=== PATIENT | female | born 1935 | race Hispanic/Latino ===

== ENCOUNTER 2016-06-20 20:38 | Inpatient (IN) | payer MEDICARE, BC ==
[2016-06-20] MEDS ORDERED: Sodium Chloride 0.9% 1,000 ML IV STA (21:18)
--- NOTE | 2016-06-20 21:24 | ED PDOC ---
Arrival/HPI - General Chief Complaint: Abdominal Pain Time Seen by Provider: 06/20/16 21:01 Historian: Patient - History of Present Illness Narrative History of Present Illness (Text): 06/20/16 21:04 A 81 year old female, whose past medical history includes diverticulitis, hypertension, peripheral edema, asthma and COPD, presents to the emergency department complaining of lower abdominal pain today. Patient reports pain is similar to previous pain. Patient also notes she has chronic shortness of breath , baseline and not worse than usual. Patient denies any other complaints at this time. Time/Duration: 1 week Symptom Onset: Sudden Symptom Course: Unchanged Activities at Onset: Rest Modifying Factors (Text): none Context: Home Past Medical History - Provider Review Nursing Documentation Reviewed: Yes - Infectious Disease Hx of Infectious Diseases: None - Tetanus Immunization Tetanus Immunization: Unknown - Cardiac Hx Hypertension: Yes Hx Peripheral Edema: Yes - Pulmonary Hx Asthma: Yes Hx Chronic Obstructive Pulmonary Disease (COPD): Yes Hx Pneumonia: Yes - Neurological Hx Neurological Disorder: No - HEENT Hx HEENT Disorder: No - Renal Hx Renal Disorder: No - Endocrine/Metabolic Hx Hypothyroidism: Yes - Hematological/Oncological Hx Blood Disorders: No - Integumentary Hx Dermatological Disorder: No - Musculoskeletal/Rheumatological Hx Musculoskeletal Disorders: No Hx Falls: No - Gastrointestinal Hx Gastrointestinal Disorders: Yes Hx Constipation: Yes Hx Gastroesophageal Reflux: Yes - Genitourinary/Gynecological Hx Genitourinary Disorders: No Hx Reproductive Disorders: No - Psychiatric Hx Psychophysiologic Disorder: Yes Hx Anxiety: Yes Hx Substance Use: No - Surgical History Hx Orthopedic Surgery: Yes (bilateral knee replacement) Other/Comment: throat polyps removed - Anesthesia Hx Anesthesia: Yes - Suicidal Assessment Feels Threatened In Home Enviroment: No Family/Social History - Physician Review Nursing Documentation Reviewed: Yes Family/Social History: No Known Family HX Smoking Status: Former Smoker Hx Alcohol Use: No Hx Substance Use: No Allergies/Home Meds Allergies/Adverse Reactions: Allergies latex Allergy (Verified 06/20/16 20:44) ANAPHYLAXIS moxifloxacin HCl [From Avelox] Allergy (Verified 06/20/16 20:44) RASH oxycodone HCl [From Percocet] Allergy (Verified 06/20/16 20:44) RASH Home Medications: Home Meds Medication Instructions Recorded Confirmed ALPRAZolam [Xanax] 0.25 mg PO DAILY 02/24/16 06/20/16 Aspirin [Ecotrin] 81 mg PO DAILY 02/24/16 06/20/16 Fluticasone/Salmeterol 250/50 1 dsk IH DAILY 02/24/16 06/20/16 [Advair Diskus] Levothyroxine [Synthroid] 125 mcg PO DAILY 02/24/16 06/20/16 Montelukast [Singulair] 10 mg PO DAILY 02/24/16 06/20/16 Tiotropium [Spiriva] 18 mcg IH DAILY 02/24/16 06/20/16 Triamterene/Hydrochlorothiazid 1 each PO DAILY 02/24/16 06/20/16 [Triamterene-Hctz 37.5-25 mg Cp] amLODIPine [Norvasc] 10 mg PO DAILY 02/24/16 06/20/16 Review of Systems - Physician Review All systems were reviewed & negative as marked: Yes Physical Exam - Physical Exam Narrative Physical Exam (Text): - Review of Systems Constitutional: Normal. absent: Fatigue, Weight Change, Fevers Eyes: Normal ENT: Normal Respiratory: Present: chronic SOB absent: Cough, Sputum Cardiovascular: Normal absent: Chest pain, Palpitations, Syncope Gastrointestinal: Present: lower abdominal pain absent: Diarrhea, Nausea, Vomiting Genitourinary: Normal. absent: Dysuria, Frequency, Hematuria Musculoskeletal: Normal. absent: Arthralgias, Back Pain, Neck Pain Skin: Normal Neurological: Normal absent: Focal Weakness Endocrine: Normal Hemo/Lymphatic: Normal Psychiatric: Normal - Physical exam Patient appears age appropriate, speaking full sentences without difficulty - Systems Exam Head: Present: Atraumatic, Normocephalic Pupils: Present: PERRL Extraocular Muscles: Present: EOMI Conjunctiva: Present: Normal Mouth: Present: Moist Mucous Membranes Neck: Present: Normal Range of Motion. No: MIDLINE TENDERNESS, Paraspinal Tenderness Respiratory/Chest: Present: Clear to Auscultation, Good Air Exchange. No: Respiratory Distress, Accessory Muscle Use, Tachypneic Cardiovascular: Present: Regular Rate and Rhythm, Normal S1, S2, Peripheral Pulses Present. No: Murmurs Abdomen: Present: lower abdomen tenderness to palpation LLQ, Normal Bowel Sounds , No: Peritoneal Signs, Rebound, Guarding, Distention Back: Present: Normal Inspection. No: Midline Tenderness, Paraspinal Tenderness Upper Extremity: Present: Normal Inspection. No: Cyanosis, Edema Lower Extremity: Present: Normal Inspection. No: Edema Neurological: Present: GCS=15, Speech Normal, cranial nerves II through XII fully intact with no cerebellar abnormality, neuro-sensory fully intact. No focal neurological deficits. Skin: Present: Warm, Dry, Normal Color. No: Rashes Lymphatic: Present: OX3, NI, NC Psychiatric: Present: Alert, Oriented x 3, Normal Insight, Normal Concentration . Vital Signs Reviewed: Yes Vital Signs Temp Pulse Resp BP Pulse Ox 06/20/16 23:01 98 H 141/69 94 L 06/20/16 20:54 97.9 F 93 H 21 141/82 94 L Temperature: Afebrile Blood Pressure: Normal Pulse: Regular Respiratory Rate: Normal Appearance: Positive for: Well-Appearing, Non-Toxic, Comfortable Pain Distress: None Mental Status: Positive for: Alert and Oriented X 3 Medical Decision Making ED Course and Treatment: 06/20/16 21:05 Impression: A 81 year old female with lower abdominal pain. On physical exam, patient had lower abdomen tenderness to palpation LLQ. Past visit: Patient last reported to emergency department on 02/24/16 for evaluation of chest tightness and shortness of breath. Patient received nebulizer treatment Solumedrol and was discharged home. Plan: -- EKG -- chest xray -- CT abd/pelvis -- Labs -- IV fluids, Toradol -- Urinalysis -- Reassess and disposition Progress Notes: EKG: Ordered, reviewed, and independently interpreted the EKG. Rate : 85 BPM Rhythm : NSR Interpretation : No ST-segment elevations, normal intervals. Interpreted by me. Comparison : No previous EKG for comparison. Chest xray interpreted by ED physician shows no pneumothorax, no cardiomegaly, no infiltrates CT Abdomen and Pelvis With Intravenous Contrast: IMPRESSION: Descending/sigmoid colon demonstrates bowel wall thickening/surrounding inflammatory stranding in the region of colonic diverticula, appearance most consistent with acute diverticulitis versus colitis. Please see additional details/findings as above. Some of the above findings may warrant followup evaluation. Dictated and Authenticated by: Dior Lance MD 06/20/2016 11:38 PM Eastern Time ([place] & [place]) 06/21/16 00:12 Ordered antibiotics for patient's diverticulitis Primary physician called, awaiting callback. 06/21/16 01:16 aleena Ramey, accepted admission to his service pt aware of and agrees with plan - Lab Interpretations Lab Results: 06/20/16 21:53 06/20/16 21:53 Lab Results 06/20/16 21:53: Sodium 139, Chloride 97 L, Potassium 3.2 L, Carbon Dioxide 31, Anion Gap 14, BUN 21, Creatinine 0.6, Est GFR ( Amer) > 60, Est GFR (Non- Af Amer) > 60, Random Glucose 109, Calcium 9.6, Total Bilirubin 0.6, AST 22, ALT 41, Alkaline Phosphatase 86, Lactate Dehydrogenase 386, Total Creatine Kinase 29 L, Troponin I < 0.01, Total Protein 7.8, Albumin 4.2, Globulin 3.5, Albumin/Globulin Ratio 1.2 06/20/16 21:53: pO2 61 H, VBG pH 7.42, VBG pCO2 52.0, VBG HCO3 33.7 H, VBG Total CO2 35.3 H, VBG O2 Sat (Calc) 93.7 H, VBG Base Excess 7.6 H, VBG Potassium 3.5 L, Sodium 139.0, Chloride 103.0, Glucose 114 H, Lactate 1.8, FiO2 21.0, Venous Blood Potassium 3.5 L 06/20/16 21:53: PT 9.7 L, INR 0.90 L, APTT 28.0 06/20/16 21:53: WBC 9.6 D, RBC 5.34, Hgb 14.6, Hct 44.3, MCV 83.0, MCH 27.3, MCHC 33.0, RDW 15.4 H, Plt Count 268, MPV 9.7, Gran % 79.8 H, Lymph % (Auto) 13.4 L, [place] % (Auto) 5.5, Eos % (Auto) 1.2 L, Baso % (Auto) 0.1, Gran # 7.62 H , Lymph # 1.3, [place] # 0.5, Eos # 0.1, Baso # 0.01 I have reviewed the lab results: Yes - RAD Interpretation Radiology Orders: 06/20/16 21:18 ABD & PELVIS IV CONTRAST ONLY [CT] Stat CHEST ONE VIEW [RAD] Stat - EKG Interpretation Interpreted by ED Physician: Yes Type: 12 lead EKG - Medication Orders Current Medication Orders: Discontinued Medications Sodium Chloride (Sodium Chloride 0.9%) 1,000 mls @ 1,000 mls/hr IV .Q1H STA Stop: 06/20/16 22:17 Last Admin: 06/20/16 22:07 Dose: 1,000 mls/hr Piperacillin Sod/Tazobactam Sod (Zosyn 4.5 Gm In Ns 100ml) 4.5 gm in 100 mls @ 200 mls/hr IVPB STAT STA PRN Reason: Protocol Stop: 06/21/16 00:36 Last Admin: 06/21/16 00:46 Dose: 200 mls/hr Magnesium Sulfate/Dextrose (Magnesium Sulfate 1 Gm/100 Ml D5w) 1 gm in 100 mls @ 100 mls/hr IVPB ONCE ONE Stop: 06/21/16 01:10 Iohexol (Omnipaque 350 100 Ml) Confirm Administered Dose 350 mg .ROUTE .STK-MED ONE Stop: 06/20/16 22:12 Ketorolac Tromethamine (Toradol) 15 mg IVP STAT STA Stop: 06/20/16 21:19 Last Admin: 06/20/16 22:03 Dose: 15 mg Re-Assess: [facility] Pain Assessment Document 06/20/16 23:03 SS (Rec: 06/20/16 23:50 SS [id number] Pain Reassessment Is this a pain reassessment? Yes Sleep Is patient sleeping during reassessment? No Presence of Pain Presence of Pain No Pain Scale Used Pain Scale Used Numeric Location Upper or Lower Lower Pain Location Body Site Abdomen Description Intensity of Pain at present 0 Ondansetron HCl (Zofran Inj) 4 mg IVP STAT STA Stop: 06/20/16 21:58 Last Admin: 06/20/16 22:03 Dose: 4 mg Potassium Chloride (K-Dur 20 Meq Er Tab) 40 meq PO STAT STA Stop: 06/21/16 00:12 Last Admin: 06/21/16 00:46 Dose: 40 meq - Scribe Statement The provider has reviewed the documentation as recorded by the Ireneibdonnell Walker All medical record entries made by the Ireneibdonnell were at my direction and personally dictated by me. I have reviewed the chart and agree that the record accurately reflects my personal performance of the history, physical exam, medical decision making, and the department course for this patient. I have also personally directed, reviewed, and agree with the discharge instructions and disposition. Disposition/Present on Arrival - Present on Arrival Any Indicators Present on Arrival: No History of DVT/PE: No History of Uncontrolled Diabetes: No Urinary Catheter: No History of Decub. Ulcer: No History Surgical Site Infection Following: None - Disposition Have Diagnosis and Disposition been Completed?: Yes Diagnosis: Diverticulitis Disposition: HOSPITALIZED Disposition Time: 01:17 Patient Plan: Admission Condition: FAIR
[2016-06-20 22:04] LABS: ADD MANUAL DIFF? NO
[2016-06-20 22:10] LABS: BASO # 0.01 K/mm3 (0.0-2.0); BASO % 0.1 % (0.0-3.0); EOS # 0.1 (0.0-0.7); EOS % 1.2 % (1.5-5.0); GRAN # 7.62 (1.4-6.5); GRAN % 79.8 % (50.0-68.0); HEMATOCRIT 44.3 % (36.0-48.0); LYMPH # 1.3 (1.2-3.4); LYMPH % 13.4 % (22.0-35.0); MEAN CORPUSCULAR HEMOGLOBIN 27.3 pg (25.0-35.0); MEAN PLATELET VOLUME 9.7 fl (7.0-11.0); MONO # 0.5 (0.1-0.6); MONO % 5.5 % (1.0-6.0); PLATELET COUNT 268 10^3/uL (120.0-450.0); RED CELL DISTRIBUTION WIDTH 15.4 % (11.5-14.5); WHITE BLOOD COUNT 9.6 10^3/ul (4.5-11.0)
[2016-06-20] MEDS ORDERED: Iohexol 350 MG/100 ML VIAL ONE (22:11)
[2016-06-20 22:20] LABS: INR 0.9 (0.93-1.08)
[2016-06-20 22:31] LABS: VENOUS BLOOD GAS BASE EXCESS 7.6 mmol/L (0.0-2.0); VENOUS BLOOD PH 7.42 (7.32-7.43)
[2016-06-20 22:56] LABS: ALB/GLOB RATIO 1.2 (1.1-1.8); ALKALINE PHOSPHATASE 86 U/L (38-133); ALT/SGPT 41 U/L (7-56); AST/SGOT 22 U/L (15-39); BILIRUBIN,TOTAL 0.6 mg/dL (0.2-1.3); BLOOD UREA NITROGEN 21 mg/dL (7-21); CALCIUM 9.6 mg/dL (8.4-10.5); CARBON DIOXIDE 31 mmol/L (21-33); CHLORIDE 97 mmol/L (98-107); GFR AFRICAN-AMERICAN > 60; GLUCOSE,RANDOM 109 mg/dL (70-110); POTASSIUM 3.2 mmol/L (3.6-5.0); SODIUM 139 mmol/L (132-148); TOTAL PROTEIN 7.8 g/dL (5.8-8.3)
[2016-06-20 23:09] LABS: TROPONIN I < 0.01 ng/mL
--- NOTE | 2016-06-20 23:38 | CT ---
EXAM: CT Abdomen and Pelvis With Intravenous Contrast CLINICAL HISTORY: 81 years old, female; Pain; Abdominal pain; Localized; Lower; Additional info: Abd pain TECHNIQUE: Axial computed tomography images of the abdomen and pelvis with intravenous contrast. This CT exam was performed using one or more of the following dose reduction techniques: automated exposure control, adjustment of the mA and/or kV according to patient size, and/or use of iterative reconstruction technique. Coronal and sagittal reformatted images were created and reviewed. CONTRAST: 100 mL of OMNI administered intravenously. COMPARISON: CT - ABD PELVIS IV CONTRAST ONLY 05/11/2015 3:22:45 AM FINDINGS: Bibasilar atelectasis/scarring. Atherosclerosis. The aorta at the level the diaphragm measures approximately 2.7 cm. Hepatosplenomegaly. Fatty infiltration of the liver. Subcentimeter hypoattenuating focus in the spleen. Cholelithiasis. Fatty replacement of the pancreas. The adrenal glands demonstrate no acute abnormalities. The kidneys are symmetric with no evidence of hydronephrosis. Bilateral subcentimeter hypoattenuating lesions, which are too small to characterize. No small bowel obstruction. Retained fecal material in the colon. Colonic diverticula. Descending/sigmoid colon demonstrates bowel wall thickening/surrounding inflammatory stranding, appearance most consistent with acute diverticulitis versus colitis. No ascites. No free air. Degenerative changes. IMPRESSION: Descending/sigmoid colon demonstrates bowel wall thickening/surrounding inflammatory stranding in the region of colonic diverticula, appearance most consistent with acute diverticulitis versus colitis. Please see additional details/findings as above. Some of the above findings may warrant followup evaluation.
[2016-06-21] MEDS ORDERED: Piperacill/Tazo 4.5gm in NS 4.5 GM/100 ML BAG IVPB STA (00:07)
[2016-06-21] MEDS ORDERED: Magnesium Sulfate 1 gm in D5W 1 GM/100 ML BAG IVPB ONE (00:11)
[2016-06-21] MEDS ORDERED: Potassium Chloride 20 mEq ER Tab PO STA (00:11)
[2016-06-21] MEDS ORDERED: Sodium Chloride 0.9% 1,000 ML IV STA (01:18)
[2016-06-21 01:21] VITALS: RESP 20
--- NOTE | 2016-06-21 04:19 | CP.PCM.PN ---
Subjective - Date & Time of Evaluation Date of Evaluation: 06/21/16 Time of Evaluation: 04:18 - Subjective Subjective: Patient was seen at bedside because she complained of upper abdominal pain, left knee pain,little nausea,had no b m - 4 days, normal q2days. Has no other complaints.She received Toradol 15 mg IV when she was in the ER that seems to have helped her little for pain as per her. Medical record was reviewed. This 81 year old white woman was admitted with lower abdominal pain/ diverticulitis. Has PMH of Hypertension,COPD,diverticulitis, asthma,peripheral edema,GERD, anxiety, b/l knee replacement. Objective - Vital Signs/Intake and Output Vital Signs (last 24 hours): Temp Pulse Resp BP Pulse Ox 98.1 F 75 20 122/60 95 06/21/16 01:20 06/21/16 02:59 06/21/16 02:59 06/21/16 02:59 06/21/16 02:59 - Medications Medications: Current Medications Sodium Chloride (Sodium Chloride 0.9%) 1,000 mls @ 70 mls/hr IV .[id number] STA Stop: 06/21/16 15:35 Last Admin: 06/21/16 02:32 Dose: 70 mls/hr Ondansetron HCl (Zofran Tab) 4 mg PO Q8H PRN PRN Reason: Nausea/Vomiting Last Admin: 06/21/16 04:13 Dose: 4 mg - Labs Labs: PT 9.7 Seconds (9.9-11.8) L 06/20/16 21:53 INR 0.90 (0.93-1.08) L 06/20/16 21:53 APTT 28.0 Seconds (23.7-30.8) 06/20/16 21:53 - Constitutional Appears: Well, No Acute Distress - Head Exam Head Exam: ATRAUMATIC, NORMAL INSPECTION, NORMOCEPHALIC Additional comments: Obese. - Eye Exam Eye Exam: Normal appearance - ENT Exam ENT Exam: Mucous Membranes Dry - Neck Exam Neck Exam: Normal Inspection - Respiratory Exam Respiratory Exam: NORMAL BREATHING PATTERN - Cardiovascular Exam Cardiovascular Exam: absent: JVD - GI/Abdominal Exam GI & Abdominal Exam: Soft (Yes.), Tenderness (Upper abdominal.), Normal Bowel Sounds. absent: Bruit, Distended, Firm, Guarding, Rigid, Hernia, Mass, Organomegaly, Pulsatile Mass, Rebound - Rectal Exam Rectal Exam: Deferred - Extremities Exam Extremities Exam: Normal Inspection Additional comments: Did not allow me to palpate left knee. - Back Exam Back Exam: NORMAL INSPECTION - Neurological Exam Neurological Exam: Alert, Oriented x3 - Psychiatric Exam Psychiatric exam: Normal Affect, Normal Mood - Skin Skin Exam: Dry Assessment and Plan - Assessment and Plan (Free Text) Assessment: A/P:Abdominal pain-Upper. Nausea. Left knee pain. Constipation. Diverticulitis. Obesity. COPD. Zofran as ordered. Toradol 30 mg IV x 1. Continue present management.
[2016-06-21 04:39] VITALS: BMI 36.1
--- NOTE | 2016-06-21 07:08 | RAD ---
PROCEDURE: CHEST RADIOGRAPH, 1 VIEW HISTORY: cough COMPARISON: None available. FINDINGS: LUNGS: Clear. PLEURA: No pneumothorax or pleural fluid seen. CARDIOVASCULAR: Normal. OSSEOUS STRUCTURES: No significant abnormalities. VISUALIZED UPPER ABDOMEN: Normal. OTHER FINDINGS: None. IMPRESSION: No active disease.
[2016-06-21 09:34] LABS: URINE BILIRUBIN NEGATIVE (NEGATIVE); URINE BLOOD NEGATIVE (NEGATIVE); URINE GLUCOSE (UA) NEGATIVE (NEGATIVE); URINE KETONE NEGATIVE (NEGATIVE); URINE LEUKOCYTE ESTERASE SMALL Leu/uL (NEGATIVE); URINE PROTEIN NEGATIVE mg/dL (<30 mg/dL); URINE UROBILINOGEN 0.2 E.U./dL (<1 E.U./dL)
[2016-06-21 09:35] LABS: URINE APPEARANCE CLEAR (CLEAR); URINE COLOR YELLOW (YELLOW)
[2016-06-21 09:46] LABS: URINE BACTERIA FEW (NEG); URINE RBC NEGATIVE /hpf (0-2)
[2016-06-21] MEDS ORDERED: Fluticasone-Salmeterol 250-50mcg Diskus IH SCH (11:00)
[2016-06-21] MEDS: Budesonide 0.5 mg/2 ml Inhal Susp UD IH SCH ×2 (11:25→19:44)
[2016-06-21] MEDS: Arformoterol 15 mcg/2 ml Inh Sol IH SCH ×2 (11:25→19:43)
[2016-06-21] MEDS: POLYETHYLENE GLYCOL 3350 17 GM/Dose PACKET PO SCH (11:54)
[2016-06-21] MEDS: Morphine 2 mg/ml ISec IVP PRN ×2 (11:54→17:25)
[2016-06-21] MEDS: Tiotropium 18 mcg Cap For Inhalation IH SCH (11:56)
[2016-06-21] MEDS: Levothyroxine 125 MCG TAB PO SCH (11:56)
[2016-06-21] MEDS: cefTRIAXone 1 gm 1 GM/100 ML BAG IVPB SCH (11:56)
[2016-06-21] MEDS: metroNIDAZOLE IV 250mg/50 ml 250 MG/50 ML BAG IV SCH ×2 (13:59→21:43)
--- NOTE | 2016-06-21 14:59 | HP ---
HISTORY OF PRESENT ILLNESS: The patient is 81 years old. Yesterday morning, she woke with left uppe r and lower quadrant pain. Initially she waited out that hopefully it would get better on its own, b ut it actually got worse, so she came to Emergency Room for further evaluation. Complained of feelin g nauseous, complaining of decreased appetite. No history of hemoptysis, no hematemesis. PAST MEDICAL HISTORY: Significant for: 1. Morbid obesity. 2. Bilateral knee replacement, right was multiple years ago, is functioning well; left was almost [address] Rodriguez. She states that is not working, her plates got dislodged and she is unabl e to walk anymore. She is mostly sitting. 3. History of asthma. 4. Chronic obstructive pulmonary disease. 5. Hypertension. 6. Hypothyroidism. PAST SURGICAL HISTORY: 1. Significant for knee replacement. 2. 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 ALLERGIES: AVELOX WITH DEVELOPMENT OF RASH, LATEX AND OXYCODONE. SOCIAL HISTORY: She is a . She has 3 children. She denies smoking or drinking now, but she wa s a smoker in the past. MEDICATIONS AT HOME: She is on Provigil 200 daily, Spiriva 18 mcg daily, Singulair 10 mg daily, levo thyroxine 125 mcg daily, Advair, she is on aspirin 81 daily, Xanax 0.25 daily, Norvasc 10 mg daily, a nd Maxzide. REVIEW OF SYSTEMS: Significant for left lower quadrant discomfort and constipation. PHYSICAL EXAMINATION: GENERAL: She seems to be awake and alert, communicative. VITAL SIGNS: She is afebrile, pulse 86, respirations 20, blood pressure 180/88. LUNGS: Bilateral fair airflow, no rhonchi or crackle. HEART: S1, S2 audible. ABDOMEN: Soft, very obese, nontender, no rebound, except left lower quadrant area that has some palp able discomfort. No guarding, no rebound. NEUROLOGIC: She is awake and alert, communicative. Had limited movement of the left knee. She has full range of motion of the right knee. EXTREMITIES: Bilateral leg, no edema. LABORATORY DATA: WBC is 9.6, hemoglobin 14, hematocrit 44, platelet 268. PT 9.7, INR 0.90. Lens Finisher ry: Sodium 139, potassium 3.2, chloride 97, CO2 31, BUN 21, creatinine 0.6, blood sugar 109. Urinal ysis shows small leukocyte. She had CT scan of the abdomen and pelvis done yesterday, shows descendi ng sigmoid bowel thickening with inflammatory stranding consistent with diverticulitis. ASSESSMENT: 1. Acute sigmoid diverticulitis. 2. Cholelithiasis. 3. Hepatosplenomegaly. 4. Morbid obesity 5. Hypothyroidism. 6. Chronic obstructive pulmonary disease. PLAN: We will keep the patient on clear liquid, advanced started on IV antibiotic, IV fluid. Dr. Ra marr has been consulted and will start her on gentle laxatives that is MiraLax and reevaluate the p atient in a.m. Potassium has been supplemented. Rod Ceron MD cc: [phone] TT: 06/21/2016 14:58:35 jn
--- NOTE | 2016-06-21 15:37 | CARD ---
APPROVED REPORT EKG Measurement Heart [id number] <Conclusion> Normal sinus rhythm Normal ECG
--- NOTE | 2016-06-22 03:38 | CON ---
DATE: 06/21/2016 HISTORY OF PRESENT ILLNESS: This patient was seen and evaluated earlier. The patient's daughter was at bedside. This is a 81-year-old patient with a past history of hypertension, history of diverticu litis, COPD, and presented to the Emergency Room with acute onset of lower abdominal pain started yes terday. The pain is mainly in the suprapubic and left upper quadrant area. No history of diarrhea o r vomiting. The patient had an episode of diverticulitis in the past. PAST MEDICAL HISTORY: Other possibilities significant for hypothyroidism, hypertension, and COPD. T he patient has a history knee replacement in the past. The patient was told that the recent surgery for knee on the left side had problems, but the surgery was deferred in view of her poor respiratory status. ALLERGIES: SHE IS ALLERGIC TO AVELOX, LATEX, AND OXYCODONE. SOCIAL HISTORY: She was ex-smoker. No alcohol. REVIEW OF SYSTEMS: Positive as above. Other systems reviewed. No chest pain, history of COPD. PHYSICAL EXAMINATION: GENERAL: The patient is lying on the bed, not in acute distress. The patient is also morbidly obes e. VITAL SIGNS: Temperature is afebrile, blood pressure is 127/64, pulse 73, respirations 20, O2 satura tion is 90%. HEENT: Atraumatic, anicteric. NECK: Supple. HEART: S1, S2 heard. LUNGS: Bilateral air entry present. ABDOMEN: Soft. There was tenderness in the infraumbilical area, suprapubic and left lower quadrant area. There is no rebound or guarding. EXTREMITIES: Mild edema present. NEUROLOGIC: Alert, oriented, moves all the extremities. LABORATORY DATA: Hemoglobin 14.6, hematocrit 43.2, WBC is 9.6, platelets 58. Chemistry is essential ly unremarkable. Potassium is 3.2, replaced. The patient had a CT scan of the abdomen and pelvis do ne, which was also reviewed. IMPRESSION: This is 81-year-old patient with obesity, has a history of diverticulitis in the past; l ast colonoscopy more 6 years ago. The patient was recently seen in the office for complaints of naus ea and epigastric discomfort. The patient is due to have an outpatient upper gastrointestinal endosc opic evaluation, now admitted with acute diverticulitis. I would recommend: 1. Continue the antibiotics and clear liquid diet. The patient probably has GERD and rule out pepti c ulcer disease, would recommend PPI and elective colonoscopic evaluation. Discussed with daughter glenis haley. We will discuss with the mail sorter and delivery regarding the endoscopic evaluation. Patient . The patient will need elective colonoscopy, but upper GI endoscopy can be performed as scheduled. Other comorbidities also include cholelithiasis. Thank you very much for allowing us to participate in the care of the patient. ADDENDUM: The patient also has a significant amount of gas, fecal residue, and constipation. The pa homa has been started on MiraLAX, we will continue that. Deanna Vidales MD cc: [phone] TT: 06/22/2016 03:38:09 Confirmation # [id number] Dictation # [id number] vn
[2016-06-22] MEDS: metroNIDAZOLE IV 250mg/50 ml 250 MG/50 ML BAG IV SCH ×3 (06:07→21:24)
[2016-06-22] MEDS: Arformoterol 15 mcg/2 ml Inh Sol IH SCH ×2 (07:04→20:40)
[2016-06-22] MEDS: Budesonide 0.5 mg/2 ml Inhal Susp UD IH SCH ×2 (07:04→20:40)
[2016-06-22 08:31] LABS: ADD MANUAL DIFF? NO
[2016-06-22 08:53] LABS: ALB/GLOB RATIO 1.2 (1.1-1.8); ALKALINE PHOSPHATASE 61 U/L (38-133); ALT/SGPT 41 U/L (7-56); AST/SGOT 20 U/L (15-39); BILIRUBIN,TOTAL 0.5 mg/dL (0.2-1.3); BLOOD UREA NITROGEN 8 mg/dL (7-21); CALCIUM 9.1 mg/dL (8.4-10.5); CARBON DIOXIDE 31 mmol/L (21-33); CHLORIDE 102 mmol/L (98-107); GFR AFRICAN-AMERICAN > 60; GLUCOSE,RANDOM 83 mg/dL (70-110); POTASSIUM 3.2 mmol/L (3.6-5.0); SODIUM 142 mmol/L (132-148); TOTAL PROTEIN 6.9 g/dL (5.8-8.3)
[2016-06-22] MEDS: Tiotropium 18 mcg Cap For Inhalation IH SCH (09:26)
[2016-06-22] MEDS: Levothyroxine 125 MCG TAB PO SCH (09:27)
[2016-06-22] MEDS: cefTRIAXone 1 gm 1 GM/100 ML BAG IVPB SCH (09:28)
[2016-06-22] MEDS: POLYETHYLENE GLYCOL 3350 17 GM/Dose PACKET PO SCH (09:28)
[2016-06-22 10:05] LABS: BASO # 0.03 K/mm3 (0.0-2.0); BASO % 0.5 % (0.0-3.0); EOS # 0.2 (0.0-0.7); EOS % 3.3 % (1.5-5.0); GRAN % 68.6 % (50.0-68.0); HEMATOCRIT 41.5 % (36.0-48.0); LYMPH # 1.3 (1.2-3.4); MEAN CELL VOLUME 85.7 fL (80.0-105.0); MEAN CORPUSCULAR HEMOGLOBIN 27.5 pg (25.0-35.0); MEAN PLATELET VOLUME 9.9 fl (7.0-11.0); MONO # 0.3 (0.1-0.6); MONO % 5.6 % (1.0-6.0); PLATELET COUNT 222 10^3/uL (120.0-450.0); RED CELL DISTRIBUTION WIDTH 15.6 % (11.5-14.5); WHITE BLOOD COUNT 5.7 10^3/ul (4.5-11.0)
[2016-06-22] MEDS ORDERED: Apap-Butalbital-Caffeine 325-50-40mg Tab PO STA (12:23)
--- NOTE | 2016-06-22 14:17 | CP.PCM.PN ---
Subjective - Date & Time of Evaluation Date of Evaluation: 06/22/16 Time of Evaluation: 14:00 - Subjective Subjective: Patient has very poor veins,needs iv access. Objective - Vital Signs/Intake and Output Vital Signs (last 24 hours): Temp Pulse Resp BP Pulse Ox 98 F 70 20 126/67 98 06/22/16 08:08 06/22/16 08:08 06/22/16 08:08 06/22/16 09:26 06/22/16 08:08 Intake and Output: 06/22/16 06/22/16 06:59 18:59 Intake Total 1040 520 Balance 1040 520 - Medications Medications: Current Medications Acetaminophen (Tylenol 325mg Tab) 650 mg PO Q6H PRN PRN Reason: Headache Last Admin: 06/22/16 06:06 Dose: 650 mg Alprazolam (Xanax) 0.25 mg PO DAILY [facility] PRN Reason: Protocol Stop: 06/29/16 10:01 Last Admin: 06/22/16 09:34 Dose: Not Given Amlodipine Besylate (Norvasc) 10 mg PO DAILY [facility] Last Admin: 06/22/16 09:26 Dose: 10 mg Arformoterol Tartrate (Brovana) 15 mcg IH [id number] [facility] Last Admin: 06/22/16 07:04 Dose: 15 mcg Aspirin (Ecotrin) 81 mg PO DAILY [facility] Last Admin: 06/22/16 09:27 Dose: 81 mg Budesonide (Pulmicort Respules) 0.5 mg IH [id number] [facility] Last Admin: 06/22/16 07:04 Dose: 0.5 mg Metronidazole (Flagyl) 250 mg in 50 mls @ 100 mls/hr IV Q8 [facility] PRN Reason: Protocol Stop: 06/26/16 14:01 Last Admin: 06/22/16 06:07 Dose: 100 mls/hr Ceftriaxone Sodium (Rocephin 1 Gram Ivpb) 1 gm in 100 mls @ 100 mls/hr IVPB DAILY [facility] PRN Reason: Protocol Last Admin: 06/22/16 09:28 Dose: 100 mls/hr Potassium Chloride (Potassium Chloride 10 Meq/100 Ml) 10 meq in 100 mls @ 100 mls/hr IVPB Q2H [facility] Stop: 06/22/16 15:29 Last Admin: 06/22/16 12:29 Dose: 100 mls/hr Levothyroxine Sodium (Synthroid) 125 mcg PO DAILY [facility] Last Admin: 06/22/16 09:27 Dose: 125 mcg Montelukast Sodium (Singulair) 10 mg PO DAILY [facility] Last Admin: 06/22/16 09:27 Dose: 10 mg Morphine Sulfate (Morphine) 2 mg IVP Q4H PRN PRN Reason: Pain, moderate (4-7) Last Admin: 06/21/16 17:25 Dose: 2 mg Ondansetron HCl (Zofran Tab) 4 mg PO Q8H PRN PRN Reason: Nausea/Vomiting Last Admin: 06/22/16 09:45 Dose: 4 mg Polyethylene Glycol (Miralax) 17 gm PO DAILY [facility] Last Admin: 06/22/16 09:28 Dose: 17 gm Tiotropium [place] (Spiriva) 18 mcg IH DAILY [facility] Last Admin: 06/22/16 09:26 Dose: 18 mcg - Labs Labs: 06/22/16 08:28 06/22/16 08:28 PT 9.7 Seconds (9.9-11.8) L 06/20/16 21:53 INR 0.90 (0.93-1.08) L 06/20/16 21:53 APTT 28.0 Seconds (23.7-30.8) 06/20/16 21:53 - Constitutional Appears: No Acute Distress Assessment and Plan - Assessment and Plan (Free Text) Assessment: Poor venous access Plan: Hep lock inserted in the R hand. # 24 angiocath used.
--- NOTE | 2016-06-22 15:41 | PN ---
DATE: 06/22/2016 The patient is 81 years old, seen and examined. States her left lower quadrant pain is 4/10; however , she complained of right-sided headache and complaining of feeling dizzy. Denies any chest pain, no shortness of breath and complaining of pain in the left knee, it hurts to walk. PHYSICAL EXAMINATION: VITAL SIGNS: She is afebrile, pulse 70, respirations 20, blood pressure 126/67. LUNGS: Bilateral diffusely decreased breath sounds. HEART: S1, S2 audible. ABDOMEN: Soft, obese, nontender, no rebound, no guarding. NEUROLOGIC: She is awake and alert, communicative. LABORATORY EXAMINATION: WBC is 5.7, hemoglobin 13, hematocrit 41, platelets 222. Chemistry: Sodium 142, potassium 3.2, chloride 102, CO2 of 31, BUN 8, creatinine 0.6, blood sugar of 83. LFTs are wit hin normal limits. Her blood cultures are negative. ASSESSMENT: 1. Sigmoid diverticulitis. 2. Chronic obstructive pulmonary disease. 3. Obstructive sleep apnea. 4. 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 5. Migraine headaches. PLAN: Will supplement potassium. Will continue on IV antibiotics, a gentle laxative and she has bee n started on clear liquids. Her diet will be advanced in the a.m. If she remains stable, she will be discharged in the a.m. I will give her a dose of Fioricet and meclizine for vertigo p.r.n. Rod Ceron MD cc: [id number] TT: 06/22/2016 15:40:55 Confirmation # [id number] Dictation # [id number] dn
[2016-06-22 15:56] VITALS: PULSE 68
[2016-06-22] MEDS: Morphine 2 mg/ml ISec IVP PRN (20:56)
--- NOTE | 2016-06-22 22:26 | PN ---
DATE: 06/22/2016 SUBJECTIVE: This patient was seen and evaluated earlier. The patient is feeling much better. Abdom inal pain has significantly improved. PHYSICAL EXAMINATION: VITAL SIGNS: Temperature 97.9, pulse is 68, blood pressure 149/75, respirations 20, O2 saturation 98 . HEENT: Atraumatic, anicteric. NECK: Supple. HEART: S1, S2 heard. LUNGS: Bilateral air entry present. ABDOMEN: There is some mild tenderness present in the left lower quadrant and the suprapubic area, w hich is significantly improved. The patient has been on MiraLax, has started having bowel movements. LABORATORY DATA: Hemoglobin 13.3, hematocrit 41.5, WBC 5.7, platelets 222. Chemistry is essentially unremarkable except potassium is 3.2, being replaced. IMPRESSION: This 81-year-old patient admitted with acute diverticulitis on IV antibiotics, ceftriaxo ne and Flagyl. Clinically improving. The patient has a history of chronic nausea, epigastric discom fort and reflux symptoms. The patient originally to be scheduled for upper GI endoscopy, which has b een on hold. The patient has a history of chronic obstructive pulmonary disease and pulmonary hypert ension, high risk for anesthesia. The knee replacement was deferred in view of the high risk status. I did discuss with the patient at length and also with Dr. Ceron. We will discuss with the anest hesiologist and with the education reporter before scheduling for an upper gastrointestinal endoscopy. Th e patient may benefit from the colonoscopy, but this also will be discussed. This can be done electi vely. I did discuss with the patient's daughter at length yesterday. Thank you very much for allowing us to participate in the care of the patient. Deanna Vidales MD cc: [id number] TT: 06/22/2016 22:25:42 Confirmation # [id number] Dictation # [id number] tyra
[2016-06-23] MEDS: metroNIDAZOLE IV 250mg/50 ml 250 MG/50 ML BAG IV SCH (06:26)
[2016-06-23] MEDS: Budesonide 0.5 mg/2 ml Inhal Susp UD IH SCH (07:08)
[2016-06-23] MEDS: Arformoterol 15 mcg/2 ml Inh Sol IH SCH (07:08)
[2016-06-23 07:38] VITALS: TEMP 98.8; O2SAT 94
[2016-06-23 07:39] LABS: HEMATOCRIT 39.9 % (36.0-48.0); MEAN CELL VOLUME 84.7 fL (80.0-105.0); MEAN CORPUSCULAR HEMOGLOBIN 27.4 pg (25.0-35.0); MEAN CORPUSCULAR HGB CONC 32.3 g/dl (31.0-37.0); MEAN PLATELET VOLUME 9.4 fl (7.0-11.0); RED CELL DISTRIBUTION WIDTH 15.2 % (11.5-14.5); WHITE BLOOD COUNT 5.7 10^3/ul (4.5-11.0)
[2016-06-23 07:49] LABS: ALB/GLOB RATIO 1.2 (1.1-1.8); ALKALINE PHOSPHATASE 60 U/L (38-133); ALT/SGPT 42 U/L (7-56); AST/SGOT 18 U/L (15-39); BILIRUBIN,TOTAL 0.5 mg/dL (0.2-1.3); BLOOD UREA NITROGEN 7 mg/dL (7-21); CALCIUM 8.9 mg/dL (8.4-10.5); CARBON DIOXIDE 30 mmol/L (21-33); CHLORIDE 100 mmol/L (98-107); GFR AFRICAN-AMERICAN > 60; GLUCOSE,RANDOM 82 mg/dL (70-110); POTASSIUM 3.5 mmol/L (3.6-5.0); SODIUM 140 mmol/L (132-148); TOTAL PROTEIN 6.4 g/dL (5.8-8.3)
--- NOTE | 2016-06-23 07:55 | PN ---
DATE: 06/23/2016 SUBJECTIVE: The patient has no complaints of any chest pain, no shortness of breath, no headaches. PHYSICAL EXAMINATION: VITAL SIGNS: Temperature is 97.9, pulse of 68, blood pressure is 149/75, respiration is 20. GENERAL: The patient comfortable, in no acute distress. HEENT: Anicteric sclerae. Moist mucosa. NECK: No JVD or adenopathy. CARDIAC: S1/S2. No murmurs. No rubs. Regular. RESPIRATORY: Clear to auscultation bilaterally. No wheezes, rales, or rhonchi. Good air entry. ABDOMEN: Bowel sounds are positive, soft, nontender, and nondistended. EXTREMITIES: No edema. Has 1+ pulses. LABORATORIES: White count of 5.7, hemoglobin 13.3. Potassium is 3.2. ASSESSMENT: 1. Sigmoid diverticulitis. 2. Chronic obstructive pulmonary disease. 3. Obstructive sleep apnea. 4. Migraine headaches. 5. Hypothyroidism. PLAN: The patient is on Antivert as needed for dizziness. The patient is on aspirin. She is going to continue on MiraLax for constipation. She is on morphine for pain. She is on Norvasc for her hyp ertension. She is on Synthroid for hypothyroidism. She gets Xanax for anxiety. She is on a clear l iquid diet. She had blood cultures x 2, which were negative. She is being followed by Dr. Vidales. Her white count has been normal. Ministerio Ramey MD cc: [id number] TT: 06/23/2016 07:53:57 Confirmation # [id number] Dictation # [id number] en
[2016-06-23] MEDS: POLYETHYLENE GLYCOL 3350 17 GM/Dose PACKET PO SCH (10:35)
[2016-06-23] MEDS: cefTRIAXone 1 gm 1 GM/100 ML BAG IVPB SCH (10:35)
[2016-06-23 10:36] VITALS: BP 160/73
[2016-06-23] MEDS: Tiotropium 18 mcg Cap For Inhalation IH SCH (10:36)
[2016-06-23] MEDS: Levothyroxine 125 MCG TAB PO SCH (10:36)
--- NOTE | 2016-07-06 14:22 | DS ---
This is a 81-year-old female who was admitted to the hospital for sigmoid diverticulitis. She had im provement of her symptoms and she was discharged. Please see the note dictated on 06/23/2016 for deepika levy. Ministerio Ramey MD cc: [id number] TT: 07/06/2016 14:21:16 en
== END 2016-06-23 12:08 | disposition home or self-care (01) | DRG 392 ==
LOC: ED 20:38 → ERH 06-21 01:18 → 5RNO 06-21 03:40
PROVIDERS: ADMIT Internal Medicine Nephrology; ATTEND Internal Medicine Nephrology
DX: K57.32 Diverticulitis of large intestine without perforation or abscess without bleeding (principal); J44.9 Chronic obstructive pulmonary disease, unspecified; I27.2 Other secondary pulmonary hypertension; E66.01 Morbid (severe) obesity due to excess calories; R16.2 Hepatomegaly with splenomegaly, not elsewhere classified; K80.20 Calculus of gallbladder without cholecystitis without obstruction; E03.9 Hypothyroidism, unspecified; J45.909 Unspecified asthma, uncomplicated; I10 Essential (primary) hypertension; K59.00 Constipation, unspecified; K21.9 Gastro-esophageal reflux disease without esophagitis; F41.9 Anxiety disorder, unspecified; M25.562 Pain in left knee; G47.33 Obstructive sleep apnea (adult) (pediatric); G43.909 Migraine, unspecified, not intractable, without status migrainosus; R42 Dizziness and giddiness; Z96.653 Presence of artificial knee joint, bilateral; Z79.82 Long term (current) use of aspirin; Z68.36 Body mass index [BMI] 36.0-36.9, adult; Z87.891 Personal history of nicotine dependence

== ENCOUNTER 2016-07-11 10:14 | Day surgery (SDC) | payer MEDICARE, BC ==
[2016-07-09 07:00] VITALS: BMI 37.0
[2016-07-11] MEDS ORDERED: Etomidate 20 mg/10ml Inj IV ONE (12:26)
[2016-07-11] MEDS ORDERED: Propofol 10 mg/ml Inj (20 ML) ONE ×2 (12:26→12:27)
[2016-07-11] MEDS ORDERED: Lidocaine 2% Inj (20ml) ONE (12:29)
[2016-07-11] MEDS ORDERED: Sodium Chloride 0.9% 1,000 ML IV SCH (13:00)
[2016-07-11 13:49] VITALS: BP 140/76; PULSE 78; RESP 18; TEMP 98.2; O2SAT 94
== END 2016-07-11 14:56 | disposition home or self-care (01) ==
LOC: ENDO 10:14
PROVIDERS: ATTEND Internal Medicine Gastroenterology
DX: K29.50 Unspecified chronic gastritis without bleeding (principal); K22.10 Ulcer of esophagus without bleeding; K29.80 Duodenitis without bleeding; R11.0 Nausea; J44.9 Chronic obstructive pulmonary disease, unspecified; I10 Essential (primary) hypertension
CPT/HCPCS: 43239; 88305; 88342; J2405; J2704; J3010; J7040 ×2

== ENCOUNTER 2016-11-13 12:48 | Observation (INO) | payer MEDICARE, BC ==
[2016-11-13 13:01] VITALS: BMI 34.9
[2016-11-13] MEDS ORDERED: Albuterol-Ipratrop 3 mg / 0.5 (3 ml) UD IH STA (13:17)
--- NOTE | 2016-11-13 13:29 | ED PDOC ---
Arrival/HPI - General Chief Complaint: Shortness Of Breath Time Seen by Provider: 11/13/16 13:00 Historian: Patient - History of Present Illness Narrative History of Present Illness (Text): 11/13/16 13:30 A 81 year old female, whose past medical history includes asthma, diverticulitis , hypertension, COPD and sleep apnea, presents to the emergency department complaining of shortness of breath that developed yesterday. Reports using nebulizer at home and taking Advil. Patient also reports vomiting two days ago. Patient states that she "felt like I had the flu a few days ago" when she developed nausea with vomiting. Denies chest pain or abdominal pain. Denies hemoptysis. Denies pleuritic symptoms. Denies acute leg pain or swelling, reports chornic pain to both legs due to prior injuries, but not acute. PMD: Dr. Luisito Arreolast: Dr. Mccormick 11/13/16 16:26 Symptom Onset: Sudden Symptom Course: Unchanged Activities at Onset: Rest Context: Home Past Medical History - Provider Review Nursing Documentation Reviewed: Yes - Infectious Disease Hx of Infectious Diseases: None - Tetanus Immunization Tetanus Immunization: Unknown - Cardiac Hx Cardiac Disorders: Yes Hx Hypertension: Yes Hx Pacemaker: No - Pulmonary Hx Respiratory Disorders: Yes Hx Asthma: Yes Hx Chronic Obstructive Pulmonary Disease (COPD): Yes Hx Pneumonia: Yes - Neurological Hx Neurological Disorder: No Hx Paralysis: No - HEENT Hx HEENT Disorder: No - Renal Hx Renal Disorder: No - Endocrine/Metabolic Hx Endocrine Disorders: Yes Hx Hypothyroidism: Yes - Hematological/Oncological Hx Blood Transfusions: No Hx Blood Transfusion Reaction: No - Integumentary Hx Dermatological Disorder: No - Musculoskeletal/Rheumatological Hx Musculoskeletal Disorders: Yes - Gastrointestinal Hx Gastrointestinal Disorders: Yes Hx Gastroesophageal Reflux: Yes Other/Comment: constipation - Genitourinary/Gynecological Hx Genitourinary Disorders: No - Psychiatric Hx Emotional Abuse: No Hx Physical Abuse: No Hx Substance Use: No - Surgical History Hx Orthopedic Surgery: Yes (bilateral knee) - Anesthesia Hx Anesthesia Reactions: No (DIFFICULTY AFTER ANESTHEISA) Hx Malignant Hyperthermia: No - Suicidal Assessment Feels Threatened In Home Enviroment: No Family/Social History - Physician Review Nursing Documentation Reviewed: Yes Family/Social History: No Known Family HX Smoking Status: Former Smoker Hx Alcohol Use: No Hx Substance Use: No Allergies/Home Meds Allergies/Adverse Reactions: Allergies latex Allergy (Verified 11/13/16 12:59) ANAPHYLAXIS moxifloxacin HCl [From Avelox] Allergy (Verified 11/13/16 12:59) RASH oxycodone HCl [From Percocet] Allergy (Verified 11/13/16 12:59) RASH Home Medications: Home Meds Medication Instructions Recorded Confirmed ALPRAZolam [Xanax] 0.25 mg PO DAILY 02/24/16 11/13/16 Aspirin [Ecotrin] 81 mg PO DAILY 02/24/16 11/13/16 Fluticasone/Salmeterol 250/50 1 dsk IH BID 02/24/16 11/13/16 [Advair Diskus] Levothyroxine [Synthroid] 150 mcg PO DAILY 02/24/16 11/13/16 Montelukast [Singulair] 10 mg PO DAILY 02/24/16 11/13/16 Tiotropium [Spiriva] 18 mcg IH DAILY 02/24/16 11/13/16 amLODIPine [Norvasc] 10 mg PO DAILY 02/24/16 11/13/16 Modafinil [Provigil] 200 mg PO DAILY 11/13/16 11/13/16 Triamterene [Dyrenium] 37.5 mg PO DAILY 11/13/16 11/13/16 Review of Systems - Review of Systems Constitutional: Fatigue. absent: Fevers Eyes: absent: Vision Changes ENT: Rhinorrhea, Sinus Congestion. absent: Hearing Changes, Voice Changes, Sore Throat, Epistaxis Respiratory: SOB. absent: Cough, Sputum, Wheezing Cardiovascular: ALVAREZ. absent: Chest Pain, Calf Pain, Syncope Gastrointestinal: Abdominal Pain (chronic), Vomiting, Appetite Changes, Other ( lack of appetite). absent: Hematochezia Genitourinary Female: absent: Dysuria, Frequency Musculoskeletal: Other (chronic leg swelling). absent: Back Pain Skin: absent: Rash Neurological: absent: Headache, Dizziness, Focal Weakness Endocrine: absent: Polyuria Hemo/Lymphatic: absent: Easy Bleeding Physical Exam - Physical Exam Narrative Physical Exam (Text): 11/13/16 13:27 Head: Atraumatic. Normocephalic. Eyes: PERRL. EOMI. Conjunctivae are not pale. ENT: Dry mucous membranes. Oropharynx is clear and symmetric. Neck: Supple. Full ROM. No JVD. No lymphadenopathy. Cardiovascular: Regular rate. Regular rhythm. No murmurs, rubs, or gallops. Distal pulses are 2+ and symmetric. Pulmonary/Chest: mild expiratory wheezing, tachypneic Abdominal: Soft and non-distended. There is no tenderness. No rebound, guarding, or rigidity. No organomegaly. Good bowel sounds. Back: No CVA tenderness. Extremities: b/l nonpitting edema. Full range of motion in all extremities. No calf tenderness. Pain with ROM of knee on left reportedly chronic. NO streaking or erythema. No pulse deficits. Skin: Skin is warm and dry. No petechiae. No purpura. Neurological: Alert, awake, and oriented to person, place, time, and situation. Normal speech. Motor and sensory exam intact. Psychiatric: Good eye contact. Anxious. 11/13/16 16:30 Vital Signs Reviewed: Yes Vital Signs Temp Pulse Resp BP Pulse Ox 11/13/16 16:29 89 20 152/84 H 95 11/13/16 13:00 18 95 11/13/16 12:58 97.5 F L 88 20 164/83 H 95 Temperature: Afebrile Blood Pressure: Hypertensive Pulse: Regular Respiratory Rate: Tachypneic Appearance: Positive for: Uncomfortable Pain Distress: Mild Mental Status: Positive for: Alert and Oriented X 3 Medical Decision Making ED Course and Treatment: 11/13/16 13:26 Impression: A 81 year old female with shortness of breath. Also had episodies of nausea and vomiting over past several days. Differential Diagnosis included but are not limited to: asthma exacerbation vs. pneumonia vs. CHF vs. dehydration Plan: -- EKG -- chest xray -- labs -- Urinalysis -- Duoneb, Solumedrol -- Reassess and disposition Prior Visits: Notes and results from previous visits were reviewed. Patient was last seen in the emergency department on 06/20/16 for evaluation of lower abdominal pain. Progress Notes: Patient with diffuse wheezing noted. Nebulizers and iv steroids ordered as patient reported prior benefit from this. Oxygen level is 93 in emergency department, which is patient's reported baseline. 11/13/16 14:00 chest xray: Creator : Alan Barragan MD FINDINGS: LUNGS: Into history volume is noted. Limited fibrotic changes seen in the bilateral lung bases. PLEURA: No significant pleural effusion identified, no pneumothorax apparent. CARDIOVASCULAR: Stable mild cardiomegaly is seen. No pulmonary vascular derangement bilaterally. OSSEOUS STRUCTURES: No significant abnormalities. VISUALIZED UPPER ABDOMEN: Normal. IMPRESSION: No interval acute infiltrate or pleural effusion bilaterally. Cardiomegaly appears stable. Bilateral basilar limited fibrosis again evident. CXR findings reviewed with patient in laymens' terms. 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 Patient reports feeling shaky after nebulizer, requests xanax which was ordered. 11/13/16 17:02 On re-assessment, continues to deny chest pain or pleuritic discomfort. Suboptimal peak flow noted. Patient will be admitted for asthma exacerbation. Dr. Vitaliy Ramey accepts admission to his service. Patient agreeable to treatment plan, on re-exam abdomen soft and nontender. - Lab Interpretations Lab Results: 11/13/16 13:15 11/13/16 13:15 Lab Results 11/13/16 16:30: Urine Color Yellow, Urine Appearance Sl cloudy, Urine pH 6.5, Ur Specific [place] <= 1.005, Urine Protein Negative, Urine Glucose (UA) Negative, Urine Ketones Negative, Urine Blood Negative, Urine Nitrate Negative, Urine Bilirubin Negative, Urine Urobilinogen 0.2, Ur Leukocyte Esterase Small H , Urine RBC Negative, Urine WBC 1 - 3, Ur Epithelial Cells 1 - 3 11/13/16 14:15: pCO2 33 L, pO2 77.0 L, HCO3 28.2 H, ABG pH 7.54 H, ABG Total CO2 29.2 H, ABG O2 Saturation 97.6, ABG Base Excess 5.8 H, ABG Potassium 2.8 L, Glucose 98, Lactate 1.5, FiO2 28.0, Sodium 138.0, Chloride 103.0, Arterial Blood Potassium 2.8 L 11/13/16 13:15: PT 9.7 L, INR 0.92 L, APTT 25.4 11/13/16 13:15: WBC 7.6 D, RBC 4.98, Hgb 13.8, Hct 41.9, MCV 84.1, MCH 27.7, MCHC 32.9, RDW 14.9 H, Plt Count 246, MPV 9.4, Gran % 77.2 H, Lymph % (Auto) 15.5 L, [place] % (Auto) 5.9, Eos % (Auto) 1.1 L, Baso % (Auto) 0.3, Gran # 5.86, Lymph # 1.2, [place] # 0.5, Eos # 0.1, Baso # 0.02 11/13/16 13:15: Sodium 140, Potassium 3.2 L, Chloride 96 L, Carbon Dioxide 31, Anion Gap 16, BUN 22 H, Creatinine 0.6, Est GFR ( Amer) > 60, Est GFR ( Non-Af Amer) > 60, Random Glucose 109, Calcium 10.2, Total Bilirubin 0.6, AST 41 H, ALT 65 H, Alkaline Phosphatase 91, Lactate Dehydrogenase 422, Total Creatine Kinase 28 L, Troponin I < 0.01, NT-Pro-B Natriuret Pep 63.8, Total Protein 7.5, Albumin 4.6, Globulin 3.0, Albumin/Globulin Ratio 1.5 I have reviewed the lab results: Yes - RAD Interpretation Radiology Orders: 11/13/16 13:17 CHEST PORTABLE [RAD] Stat - EKG Interpretation EKG Interpretation (Text): 11/13/16 12:57 EKG normal sinus rhythmrate of [address] elevations Interpreted by ED Physician: Yes Type: 12 lead EKG - Medication Orders Current Medication Orders: Sodium Chloride (Sodium Chloride 0.9%) 1,000 mls @ 100 mls/hr IV .Q10H RAFFI Last Admin: 11/13/16 13:57 Dose: 100 mls/hr eMAR Start Stop Document 11/13/16 13:57 EQ (Rec: 11/13/16 13:57 EQ [id number]) Intravenous Solution Start Date 11/13/16 Start Time 13:57 Discontinued Medications Albuterol/Ipratropium (Duoneb 3 Mg/0.5 Mg (3 Ml) Ud) 3 ml IH STAT STA Stop: 11/13/16 13:18 Last Admin: 11/13/16 13:56 Dose: 3 ml Alprazolam (Xanax) 0.25 mg PO STAT STA Stop: 11/13/16 14:42 Last Admin: 11/13/16 15:12 Dose: 0.25 mg Methylprednisolone (Solu-Medrol) 125 mg IVP STAT STA Stop: 11/13/16 13:18 Last Admin: 11/13/16 13:56 Dose: 125 mg IVP Administration Document 11/13/16 13:56 EQ (Rec: 11/13/16 13:56 EQ [id number]) Charges for Administration # of IVP Administrations 1 Potassium Chloride (K-Dur 20 Meq Er Tab) 40 meq PO STAT STA Stop: 11/13/16 14:25 Last Admin: 11/13/16 15:40 Dose: 40 meq - Scribe Statement The provider has reviewed the documentation as recorded by the Ember Walker Provider Scribe Attestation: All medical record entries made by the Ember were at my direction and personally dictated by me. I have reviewed the chart and agree that the record accurately reflects my personal performance of the history, physical exam, medical decision making, and the department course for this patient. I have also personally directed, reviewed, and agree with the discharge instructions and disposition. Disposition/Present on Arrival - Present on Arrival Any Indicators Present on Arrival: No History of DVT/PE: No History of Uncontrolled Diabetes: No Urinary Catheter: No History of Decub. Ulcer: No History Surgical Site Infection Following: None - Disposition Have Diagnosis and Disposition been Completed?: Yes Diagnosis: Asthma exacerbation Disposition: HOSPITALIZED Disposition Time: 16:00 Patient Plan: Admission, Observation Condition: FAIR Referrals: Celso Jorge MD [Primary Care Provider] - Follow up with primary Forms: [employer] (Kyrgyz)
[2016-11-13] MEDS ORDERED: Sodium Chloride 0.9% 1,000 ML IV SCH (13:45)
--- NOTE | 2016-11-13 13:58 | RAD ---
HISTORY: sob COMPARISON: No prior. FINDINGS: LUNGS: Into history volume is noted. Limited fibrotic changes seen in the bilateral lung bases. PLEURA: No significant pleural effusion identified, no pneumothorax apparent. CARDIOVASCULAR: Stable mild cardiomegaly is seen. No pulmonary vascular derangement bilaterally. OSSEOUS STRUCTURES: No significant abnormalities. VISUALIZED UPPER ABDOMEN: Normal. OTHER FINDINGS: None. IMPRESSION: No interval acute infiltrate or pleural effusion bilaterally. Cardiomegaly appears stable. Bilateral basilar limited fibrosis again evident.
[2016-11-13 14:00] LABS: BASO # 0.02 K/mm3 (0.0-2.0); BASO % 0.3 % (0.0-3.0); EOS # 0.1 (0.0-0.7); EOS % 1.1 % (1.5-5.0); GRAN # 5.86 (1.4-6.5); GRAN % 77.2 % (50.0-68.0); HEMATOCRIT 41.9 % (36.0-48.0); LYMPH # 1.2 (1.2-3.4); LYMPH % 15.5 % (22.0-35.0); MEAN CELL VOLUME 84.1 fl (80.0-105.0); MEAN CORPUSCULAR HEMOGLOBIN 27.7 pg (25.0-35.0); MEAN CORPUSCULAR HGB CONC 32.9 g/dl (31.0-37.0); MEAN PLATELET VOLUME 9.4 fl (7.0-11.0); MONO # 0.5 (0.1-0.6); MONO % 5.9 % (1.0-6.0); RED CELL DISTRIBUTION WIDTH 14.9 % (11.5-14.5); WHITE BLOOD COUNT 7.6 10^3/ul (4.5-11.0)
[2016-11-13 14:09] LABS: ALB/GLOB RATIO 1.5 (1.1-1.8); ALKALINE PHOSPHATASE 91 U/L (38-126); ALT/SGPT 65 U/L (7-56); AST/SGOT 41 U/L (14-36); BILIRUBIN,TOTAL 0.6 mg/dL (0.2-1.3); BLOOD UREA NITROGEN 22 mg/dL (7-21); CALCIUM 10.2 mg/dL (8.4-10.5); CARBON DIOXIDE 31 mmol/L (21-33); CHLORIDE 96 mmol/L (98-107); GFR AFRICAN-AMERICAN > 60; GLUCOSE,RANDOM 109 mg/dL (70-110); POTASSIUM 3.2 mmol/L (3.6-5.0); SODIUM 140 mmol/L (132-148); TOTAL PROTEIN 7.5 g/dL (5.8-8.3)
[2016-11-13 14:21] LABS: INR 0.92 (0.93-1.08); PARTIAL THROMBOPLASTIN TIME 25.4 Seconds (23.7-30.8)
[2016-11-13 14:22] LABS: TROPONIN I < 0.01 ng/mL
[2016-11-13 14:23] LABS: ARTERIAL BLOOD GAS HCO3 28.2 mmol/L (21-28); ARTERIAL BLOOD GAS PH 7.54 (7.35-7.45)
[2016-11-13] MEDS ORDERED: Potassium Chloride 20 mEq ER Tab PO STA (14:24)
[2016-11-13 16:39] LABS: PH,URINE 6.5 (4.7-8.0); URINE BILIRUBIN NEGATIVE (NEGATIVE); URINE BLOOD NEGATIVE (NEGATIVE); URINE GLUCOSE (UA) NEGATIVE (NEGATIVE); URINE KETONE NEGATIVE (NEGATIVE); URINE LEUKOCYTE ESTERASE SMALL Leu/uL (NEGATIVE); URINE PROTEIN NEGATIVE mg/dL (<30 mg/dL); URINE UROBILINOGEN 0.2 E.U./dL (<1 E.U./dL)
[2016-11-13 16:41] LABS: URINE APPEARANCE SL CLOUDY (CLEAR); URINE COLOR YELLOW (YELLOW)
[2016-11-13 16:46] LABS: URINE RBC NEGATIVE /hpf (0-2)
[2016-11-13] MEDS ORDERED: Albuterol-Ipratrop 3 mg / 0.5 (3 ml) UD IH PRN (19:15)
[2016-11-14] MEDS ORDERED: Levothyroxine 150 MCG TAB PO SCH (06:00)
[2016-11-14 06:53] VITALS: RESP 20; O2SAT 97
[2016-11-14 08:00] VITALS: BP 117/63; PULSE 81; TEMP 98.1
[2016-11-14] MEDS ORDERED: Albuterol-Ipratrop 3 mg / 0.5 (3 ml) UD IH SCH (08:00)
[2016-11-14] MEDS ORDERED: MethylPREDNISolone 40 mg Vial IVP ONE (08:37)
--- NOTE | 2016-11-14 09:03 | CARD ---
APPROVED REPORT EKG Measurement Heart [id number] <Conclusion> Normal sinus rhythm Normal ECG No change
[2016-11-14] MEDS ORDERED: Tiotropium 18 mcg Cap For Inhalation IH SCH (10:00)
--- NOTE | 2016-11-14 11:16 | CP.PCM.HP ---
History of Present Illness - History of Present Illness History of Present Illness: PGY-2 H&P for Dr. Ramey 81 yo female with PMH of asthma, diverticulitis, hypertension, COPD and sleep apnea, presents to the emergency department complaining of shortness of breath that developed yesterday. Patient states a few days ago she was vomiting with diarrhea. the following day she woke up feeling short of breath with wheezing. She used her nebulizer at home and Advil. She states that her nausea and diarrhea resolved. However her symptoms did not improve, so she came to the ED. Denies chest pain, fever, chills, abdominal pain, hemoptysis, leg pain or swelling. Patient reports chronic pain to both legs due to prior injuries, but not acute. This morning patient states her breathing has improved. PMH: asthma, diverticulitis, hypertension, COPD, hypothyroidism and sleep apnea PSH: bilateral knee surgery social hx: former smoker quit 17 yo smoked 1ppd, deneis etoh use, illicit drug use allergy: moxifloxacin Present on Admission - Present on Admission Any Indicators Present on Admission: No Review of Systems - Constitutional Constitutional: absent: Chills, Fatigue, Fever, Headache - EENT Eyes: absent: Change in Vision Nose/Mouth/Throat: absent: Nasal Congestion, Sore Throat - Cardiovascular Cardiovascular: Dyspnea. absent: Chest Pain, Diaphoresis, Irregular Heart Rhythm, Leg Edema, Syncope - Respiratory Respiratory: Dyspnea, Wheezing. absent: Hemoptysis - Gastrointestinal Gastrointestinal: absent: Abdominal Pain, Bloating, Constipation, Diarrhea, Nausea, Vomiting - Genitourinary Genitourinary: absent: Difficulty Urinating, Dysuria, Hematuria - Musculoskeletal Musculoskeletal: Arthralgias. absent: Muscle Weakness, Numbness, Tingling - Neurological Neurological: absent: Dizziness, Numbness, Headaches, Syncope, Weakness - Hematologic/Lymphatic Hematologic: absent: Easy Bleeding, Easy Bruising Past Patient History - Infectious Disease Hx of Infectious Diseases: None - Tetanus Immunizations Tetanus Immunization: Unknown - Past Social History Smoking Status: Former Smoker - CARDIAC Hx Cardiac Disorders: Yes Hx Hypertension: Yes - PULMONARY Hx Respiratory Disorders: Yes Hx Asthma: Yes Hx Chronic Obstructive Pulmonary Disease (COPD): Yes Hx Pneumonia: Yes - NEUROLOGICAL Hx Neurological Disorder: No - HEENT Hx HEENT Problems: No - RENAL Hx Chronic Kidney Disease: No - ENDOCRINE/METABOLIC Hx Endocrine Disorders: Yes Hx Hypothyroidism: Yes - HEMATOLOGICAL/ONCOLOGICAL Hx Blood Disorders: No - INTEGUMENTARY Hx Dermatological Problems: No - MUSCULOSKELETAL/RHEUMATOLOGICAL Hx Musculoskeletal Disorders: Yes Hx Falls: Yes - GASTROINTESTINAL Hx Gastrointestinal Disorders: Yes Hx Gastroesophageal Reflux: Yes Other/Comment: constipation - GENITOURINARY/GYNECOLOGICAL Hx Genitourinary Disorders: No - PSYCHIATRIC Hx Emotional Abuse: No Hx Physical Abuse: No - SURGICAL HISTORY Hx Orthopedic Surgery: Yes (bilateral knee) - ANESTHESIA Hx Anesthesia Reactions: No (DIFFICULTY AFTER ANESTHEISA) Hx Malignant Hyperthermia: No Meds Home Medications: Home Medication List Medication Instructions Recorded Confirmed Type Methylprednisolone [Medrol Dose 4 mg PO DAILY #21 mg 11/14/16 Rx Pack (21 tabs)] Allergies/Adverse Reactions: Allergies Allergy/AdvReac Type Severity Reaction Status Date / Time latex Allergy ANAPHYLAXIS Verified 11/13/16 12:59 moxifloxacin HCl Allergy RASH Verified 11/13/16 12:59 [From Avelox] oxycodone HCl [From Percocet] Allergy RASH Verified 11/13/16 12:59 Physical Exam - Constitutional Appears: Well, No Acute Distress - Head Exam Head Exam: ATRAUMATIC, NORMAL INSPECTION, NORMOCEPHALIC - Eye Exam Eye Exam: EOMI, Normal appearance - ENT Exam ENT Exam: Mucous Membranes Moist - Respiratory Exam Respiratory Exam: Wheezes (mild diffuse), NORMAL BREATHING PATTERN. absent: Decreased Breath Sounds, Rales, Rhonchi, Respiratory Distress - Cardiovascular Exam Cardiovascular Exam: REGULAR RHYTHM, +S1, +S2. absent: Tachycardia, Diastolic murmur, Systolic Murmur - GI/Abdominal Exam GI & Abdominal Exam: Normal Bowel Sounds, Soft. absent: Distended, Firm, Guarding, Tenderness - Extremities Exam Extremities exam: Positive for: normal inspection. Negative for: pedal edema - Neurological Exam Neurological exam: Alert, CN II-XII Intact, Oriented x3 - Skin Skin Exam: Dry, Intact, Normal Color, Warm Results - Vital Signs Recent Vital Signs: Last Vital Signs Temp 98.1 F 11/14/16 07:59 Pulse 81 11/14/16 07:59 Resp 20 11/14/16 07:59 BP 117/63 11/14/16 09:06 Pulse Ox 97 11/14/16 07:59 - Labs Result Diagrams: 11/13/16 13:15 11/13/16 13:15 Assessment & Plan - Assessment and Plan (Free Text) Assessment: 81 yo female with PMH of asthma, diverticulitis, hypertension, COPD and sleep apnea, hypothyroidism presents for asthma exacerbation. Plan: 1. asthma exacerbation - improved, most likely exacerbated by recent illness - patient received solu-medrol in ED - duoneb, spiriva - singular 2. HTN - cont home meds norvasc 3. hypothyroidism - cont home med levothyroxine
--- NOTE | 2016-11-17 11:58 | CARD ---
APPROVED REPORT EKG Measurement Heart [id number] MD [id number] <Conclusion> Normal sinus rhythm PRWP V 1 - 4
== END 2016-11-14 13:07 | disposition home or self-care (01) ==
LOC: ED 12:48 → ERH 16:43 → 5RNO 18:41
PROVIDERS: ADMIT Internal Medicine Nephrology; ATTEND Internal Medicine Nephrology
DX: J45.901 Unspecified asthma with (acute) exacerbation (principal); J44.9 Chronic obstructive pulmonary disease, unspecified; E03.9 Hypothyroidism, unspecified; G47.30 Sleep apnea, unspecified; G89.29 Other chronic pain; I11.9 Hypertensive heart disease without heart failure; I51.7 Cardiomegaly; K21.9 Gastro-esophageal reflux disease without esophagitis; Z79.82 Long term (current) use of aspirin; Z79.899 Other long term (current) drug therapy; Z87.01 Personal history of pneumonia (recurrent); Z87.891 Personal history of nicotine dependence; Z88.5 Allergy status to narcotic agent; Z87.892 Personal history of anaphylaxis; Z88.1 Allergy status to other antibiotic agents; Z91.040 Latex allergy status
CPT/HCPCS: 36600; 71010; 80053; 81001; 82550; 82803; 83615; 83880; 84484; 85025; 85610; 85730; 87040; 87086; 93005; 94150; 94640; 94760; 96374; 96376; 99285; G0378; J2920; J2930; J7040

== ENCOUNTER 2016-11-16 02:17 | Observation (INO) | payer MEDICARE, BC ==
[2016-11-16 02:17] VITALS: BMI 34.9
--- NOTE | 2016-11-16 02:44 | ED PDOC ---
Arrival/HPI - General Chief Complaint: Dizziness/Lightheaded Time Seen by Provider: 11/16/16 02:20 Historian: Patient - History of Present Illness Narrative History of Present Illness (Text): 11/16/16 02:44 A 81 year old female, whose past medical history includes COPD, hypertension, asthma and diverticulitis, presents to the emergency department complaining of dizziness, shortness of breath and nausea after taking Solumedrol medication. Patient reports she almost passed out. Denies any loss of consciousness. Patient denies any fever, chills, headache, vomiting, abdominal pain or any other complaints at this time. PMD: Dr. Jorge Symptom Onset: Sudden Symptom Course: Unchanged Activities at Onset: Rest Context: Home Past Medical History - Provider Review Nursing Documentation Reviewed: Yes - Infectious Disease Hx of Infectious Diseases: None - Tetanus Immunization Tetanus Immunization: Unknown - Reproductive Menopause: Yes - Cardiac Hx Cardiac Disorders: Yes Hx Hypertension: Yes - Pulmonary Hx Respiratory Disorders: Yes Hx Asthma: Yes Hx Chronic Obstructive Pulmonary Disease (COPD): Yes Hx Pneumonia: Yes - Neurological Hx Neurological Disorder: No - HEENT Hx HEENT Disorder: No - Renal Hx Renal Disorder: No - Endocrine/Metabolic Hx Endocrine Disorders: Yes Hx Hypothyroidism: Yes - Hematological/Oncological Hx Blood Disorders: No - Integumentary Hx Dermatological Disorder: No - Musculoskeletal/Rheumatological Hx Musculoskeletal Disorders: Yes Hx Falls: Yes - Gastrointestinal Hx Gastrointestinal Disorders: Yes Hx Gastroesophageal Reflux: Yes Other/Comment: constipation - Genitourinary/Gynecological Hx Genitourinary Disorders: No - Psychiatric Hx Emotional Abuse: No Hx Physical Abuse: No Hx Substance Use: No - Surgical History Hx Orthopedic Surgery: Yes (bilateral knee) - Anesthesia Hx Anesthesia Reactions: No (DIFFICULTY AFTER ANESTHEISA) Hx Malignant Hyperthermia: No - Suicidal Assessment Feels Threatened In Home Enviroment: No Family/Social History - Physician Review Nursing Documentation Reviewed: Yes Family/Social History: No Known Family HX Smoking Status: Former Smoker Hx Alcohol Use: No Hx Substance Use: No Allergies/Home Meds Allergies/Adverse Reactions: Allergies latex Allergy (Verified 11/16/16 02:19) ANAPHYLAXIS moxifloxacin HCl [From Avelox] Allergy (Verified 11/16/16 02:19) RASH oxycodone HCl [From Percocet] Allergy (Verified 11/16/16 02:19) RASH Home Medications: Home Meds Medication Instructions Recorded Confirmed ALPRAZolam [Xanax] 0.25 mg PO DAILY 02/24/16 11/16/16 Aspirin [Ecotrin] 81 mg PO DAILY 02/24/16 11/16/16 Fluticasone/Salmeterol 250/50 250 mg IH DAILY 02/24/16 11/16/16 [Advair Diskus 250/50] Levothyroxine [Synthroid] 150 mcg PO DAILY 02/24/16 11/16/16 Montelukast [Singulair] 10 mg PO DAILY 02/24/16 11/16/16 Tiotropium [Spiriva] 18 mcg IH DAILY 02/24/16 11/16/16 amLODIPine [Norvasc] 10 mg PO DAILY 02/24/16 11/16/16 Modafinil [Provigil] 200 mg PO DAILY 11/13/16 11/16/16 Triamterene [Dyrenium] 37.5 mg PO DAILY 11/13/16 11/16/16 Acetaminophen [Tylenol 325mg tab] 325 mg PO BID 11/16/16 11/16/16 Fluticasone/Salmeterol 250/50 1 dsk IH DAILY 11/16/16 11/16/16 [Advair Diskus] Omeprazole 40 mg PO DAILY 11/16/16 11/16/16 Review of Systems - Physician Review All systems were reviewed & negative as marked: Yes - Review of Systems Constitutional: absent: Fevers, Other (chills) Respiratory: SOB Gastrointestinal: Nausea. absent: Abdominal Pain, Vomiting Neurological: Dizziness. absent: Headache Physical Exam Vital Signs Reviewed: Yes Vital Signs Temp Pulse Resp BP Pulse Ox 11/16/16 03:22 73 17 150/80 99 11/16/16 02:21 98.4 F 76 24 156/87 H 94 L 11/16/16 02:20 98.4 F 76 24 156/87 H 94 L Temperature: Afebrile Blood Pressure: Hypertensive Pulse: Regular Respiratory Rate: Normal Appearance: Positive for: Well-Appearing, Non-Toxic, Comfortable Pain Distress: None Mental Status: Positive for: Alert and Oriented X 3 - Systems Exam Head: Present: Atraumatic, Normocephalic Pupils: Present: PERRL Extroacular Muscles: Present: EOMI Conjunctiva: Present: Normal Mouth: Present: Moist Mucous Membranes Neck: Present: Normal Range of Motion Respiratory/Chest: Present: Clear to Auscultation, Good Air Exchange. No: Respiratory Distress, Accessory Muscle Use Cardiovascular: Present: Regular Rate and Rhythm, Normal S1, S2. No: Murmurs Abdomen: Present: Normal Bowel Sounds. No: Tenderness, Distention, Peritoneal Signs Back: Present: Normal Inspection Upper Extremity: Present: Normal Inspection. No: Cyanosis, Edema Lower Extremity: Present: Normal Inspection. No: Edema Neurological: Present: GCS=15, CN II-XII Intact, Speech Normal Skin: Present: Warm, Dry, Normal Color. No: Rashes Psychiatric: Present: Alert, Oriented x 3, Normal Insight, Normal Concentration Medical Decision Making ED Course and Treatment: 11/16/16 02:42 Impression: A 81 year old female with dizziness, shortness of breath and nausea. Plan: -- EKG -- CT head -- chest xray -- labs -- Urinalysis -- Ativan -- Reassess and disposition Prior Visits: Notes and results from previous visits were reviewed. Patient was last seen in the emergency department on 11/13/16 for evaluation of shortness of breath. Progress Notes: EKG: Ordered, reviewed, and independently interpreted the EKG. Rate : 81 BPM Rhythm : NSR Interpretation : Nonspecific ST segment changes, normal intervals CT Head Without Intravenous Contrast FINDINGS: Brain: Mild atrophy. No intracranial hemorrhage. No mass. Few scattered foci of decreased attenuation within periventricular/subcortical white matter. No definite edema. Ventricles: No hydrocephalus. Bones/joints: No acute fracture. Soft tissues: Unremarkable. Vasculature: Mild atherosclerotic disease of intracranial arteries. Sinuses: No acute sinusitis. Mastoid air cells: No mastoid effusion. Orbits: Unremarkable as visualized. IMPRESSION: 1. Nonspecific white matter changes. Acute infarction may be CT occult within first 24 hours. If a focal deficit persists, consider followup CT or MRI for further evaluation. 2. Incidental/non-acute findings are described above. Thank you for allowing us to participate in the care of your patient. Dictated and Authenticated by: Oswaldo Marsh MD 11/16/2016 3:41 AM Eastern Time ([place] & [place]) 11/16/16 03:49 chest xray: No active disease, interpreted by me. case d/w dr rani [facility] accepts case for tele obs 11/17/16 06:12 - Lab Interpretations Lab Results: 11/16/16 02:30 11/16/16 02:30 Lab Results 11/16/16 02:30: Sodium 144, Potassium 4.1, Chloride 101, Carbon Dioxide 31, Anion Gap 16, BUN 20, Creatinine 0.6, Est GFR ( Amer) > 60, Est GFR (Non- Af Amer) > 60, Random Glucose 84, Calcium 9.1, Total Bilirubin 0.5, AST 35, ALT 52, Alkaline Phosphatase 94, Lactate Dehydrogenase 640, Total Creatine Kinase 47 , Troponin I < 0.01, NT-Pro-B Natriuret Pep 336, Total Protein 7.5, Albumin 4.5 , Globulin 3.0, Albumin/Globulin Ratio 1.5 11/16/16 02:30: WBC 8.6, RBC 5.12, Hgb 14.1, Hct 44.0, MCV 85.9, MCH 27.5, MCHC 32.0, RDW 15.0 H, Plt Count 302, MPV 9.0, Gran % 68.4 H, Lymph % (Auto) 22.2, [place] % (Auto) 7.8 H, Eos % (Auto) 1.3 L, Baso % (Auto) 0.3, Gran # 5.89, Lymph # 1.9, [place] # 0.7 H, Eos # 0.1, Baso # 0.03 I have reviewed the lab results: Yes - RAD Interpretation Radiology Orders: 11/16/16 02:39 HEAD W/O CONTRAST [CT] Stat CHEST PORTABLE [RAD] Stat - EKG Interpretation Interpreted by ED Physician: Yes Type: 12 lead EKG - Medication Orders Current Medication Orders: Discontinued Medications Acetaminophen (Tylenol 325mg Tab) 650 mg PO Q4H PRN PRN Reason: Fever >100.5 F Last Admin: 11/16/16 13:05 Dose: 650 mg MAR Pain/Vitals Document 11/16/16 13:05 [facility] (Rec: 11/16/16 13:07 [facility] [id number]) Pain Reassessment Is This A Pain ReAssessment? No Sleep Is patient sleeping during reassessment? No Presence of Pain Presence of Pain Yes Pain Scale Used Pain Scale Used Numeric Location Pain Location Body Site headache Description Intermittent Scale Used Numeric Pain Behavior Facial Grimacing Acetaminophen (Tylenol 325mg Tab) 650 mg PO STAT STA Stop: 11/16/16 04:18 Last Admin: 11/16/16 04:58 Dose: 650 mg Re-Assess: MAR Pain/Vitals Document 11/16/16 05:58 ST (Rec: 11/16/16 06:33 ST [id number]) Pain Reassessment Is This A Pain ReAssessment? Yes Sleep Is patient sleeping during reassessment? Yes Albuterol/Ipratropium (Duoneb 3 Mg/0.5 Mg (3 Ml) Ud) 3 ml IH Q4H PRN PRN Reason: Shortness of Breath Alprazolam (Xanax) 0.25 mg PO DAILY RAFFI PRN Reason: Protocol Stop: 11/23/16 10:46 Last Admin: 11/16/16 17:24 Dose: Not Given Non-Admin Reason: Patient Refused Amlodipine Besylate (Norvasc) 10 mg PO DAILY [facility] Last Admin: 11/16/16 11:04 Dose: 10 mg MAR Blood Pressure Document 11/16/16 11:04 [facility] (Rec: 11/16/16 11:04 [id number] Blood Pressure Blood Pressure (100/60-150/90) 138/81 Amoxicillin (Amoxil 500 Mg Cap) 500 mg PO STAT STA PRN Reason: Protocol Stop: 11/16/16 04:18 Last Admin: 11/16/16 04:58 Dose: 500 mg Aspirin (Ecotrin) 81 mg PO DAILY [facility] Last Admin: 11/16/16 11:04 Dose: 81 mg Levothyroxine Sodium (Synthroid) 150 mcg PO DAILY [facility] Last Admin: 11/16/16 11:04 Dose: 150 mcg Lorazepam (Ativan) 1 mg IVP ONCE ONE PRN Reason: Protocol Stop: 11/16/16 02:41 Last Admin: 11/16/16 02:54 Dose: 1 mg IVP Administration Document 11/16/16 02:54 RD (Rec: 11/16/16 02:54 RD [id number]) Charges for Administration # of IVP Administrations 1 Re-Assess: Reassess Psych Meds Document 11/16/16 03:24 ST (Rec: 11/16/16 06:33 ST [id number]) Reassess Psych Med Effective Montelukast Sodium (Singulair) 10 mg PO DAILY [facility] Last Admin: 11/16/16 11:04 Dose: 10 mg (Modafinil [Provigil (] 200 Mg)- Home Med) 200 mg PO DAILY [facility] Triamterene [ Dyrenium] 37.5 Mg ( Home) 37.5 mg PO DAILY [facility] Tiotropium [place] (Spiriva) 18 mcg IH DAILY RAFFI - Scribe Statement The provider has reviewed the documentation as recorded by the Ireneibdonnell Walker Provider Scribe Attestation: All medical record entries made by the Scribe were at my direction and personally dictated by me. I have reviewed the chart and agree that the record accurately reflects my personal performance of the history, physical exam, medical decision making, and the department course for this patient. I have also personally directed, reviewed, and agree with the discharge instructions and disposition. Disposition/Present on Arrival - Present on Arrival Any Indicators Present on Arrival: No History of DVT/PE: No History of Uncontrolled Diabetes: No Urinary Catheter: No History of Decub. Ulcer: No History Surgical Site Infection Following: None - Disposition Have Diagnosis and Disposition been Completed?: Yes Diagnosis: Near syncope Disposition: HOSPITALIZED Disposition Time: 04:00 Condition: GOOD
[2016-11-16 02:54] LABS: BASO # 0.03 K/mm3 (0.0-2.0); BASO % 0.3 % (0.0-3.0); EOS # 0.1 (0.0-0.7); EOS % 1.3 % (1.5-5.0); GRAN # 5.89 (1.4-6.5); GRAN % 68.4 % (50.0-68.0); LYMPH # 1.9 (1.2-3.4); LYMPH % 22.2 % (22.0-35.0); MEAN CELL VOLUME 85.9 fl (80.0-105.0); MEAN CORPUSCULAR HEMOGLOBIN 27.5 pg (25.0-35.0); MONO # 0.7 (0.1-0.6); MONO % 7.8 % (1.0-6.0); WHITE BLOOD COUNT 8.6 10^3/ul (4.5-11.0)
[2016-11-16 03:07] LABS: ALB/GLOB RATIO 1.5 (1.1-1.8); ALKALINE PHOSPHATASE 94 U/L (38-126); ALT/SGPT 52 U/L (7-56); AST/SGOT 35 U/L (14-36); BILIRUBIN,TOTAL 0.5 mg/dL (0.2-1.3); BLOOD UREA NITROGEN 20 mg/dL (7-21); CALCIUM 9.1 mg/dL (8.4-10.5); CARBON DIOXIDE 31 mmol/L (21-33); CHLORIDE 101 mmol/L (98-107); GFR AFRICAN-AMERICAN > 60; GLUCOSE,RANDOM 84 mg/dL (70-110); POTASSIUM 4.1 mmol/L (3.6-5.0); SODIUM 144 mmol/L (132-148); TOTAL PROTEIN 7.5 g/dL (5.8-8.3)
[2016-11-16 03:19] LABS: TROPONIN I < 0.01 ng/mL
[2016-11-16 03:23] VITALS: O2SAT 99
--- NOTE | 2016-11-16 03:42 | CT ---
EXAM: CT Head Without Intravenous Contrast CLINICAL HISTORY: 81 years old, female; Signs and symptoms; Dizziness; Additional info: Dizzy TECHNIQUE: Axial computed tomography images of the head/brain without intravenous contrast. All CT scans at this facility use one or more dose reduction techniques, viz.: automated exposure control; ma/kV adjustment per patient size (including targeted exams where dose is matched to indication; i.e. head); or iterative reconstruction technique. COMPARISON: No relevant prior studies available. FINDINGS: Brain: Mild atrophy. No intracranial hemorrhage. No mass. Few scattered foci of decreased attenuation within periventricular/subcortical white matter. No definite edema. Ventricles: No hydrocephalus. Bones/joints: No acute fracture. Soft tissues: Unremarkable. Vasculature: Mild atherosclerotic disease of intracranial arteries. Sinuses: No acute sinusitis. Mastoid air cells: No mastoid effusion. Orbits: Unremarkable as visualized. IMPRESSION: 1. Nonspecific white matter changes. Acute infarction may be CT occult within first 24 hours. If a focal deficit persists, consider followup CT or MRI for further evaluation. 2. Incidental/non-acute findings are described above.
[2016-11-16] MEDS ORDERED: Albuterol-Ipratrop 3 mg / 0.5 (3 ml) UD IH PRN (04:01)
[2016-11-16 05:26] LABS: URINE BILIRUBIN NEGATIVE (NEGATIVE); URINE BLOOD NEGATIVE (NEGATIVE); URINE GLUCOSE (UA) NEGATIVE (NEGATIVE); URINE KETONE NEGATIVE (NEGATIVE); URINE LEUKOCYTE ESTERASE NEGATIVE Leu/uL (NEGATIVE); URINE PROTEIN NEGATIVE mg/dL (<30 mg/dL); URINE UROBILINOGEN 0.2 E.U./dL (<1 E.U./dL)
[2016-11-16 05:27] LABS: URINE APPEARANCE CLEAR (CLEAR); URINE COLOR LIGHT YELLOW (YELLOW)
--- NOTE | 2016-11-16 08:56 | CARD ---
APPROVED REPORT EKG Measurement Heart [id number] ME [id number] <Conclusion> Normal sinus rhythm ST changes V 5,6, new since 11/13/16
[2016-11-16] MEDS ORDERED: Levothyroxine 150 MCG TAB PO SCH (10:45)
[2016-11-16] MEDS ORDERED: Tiotropium 18 mcg Cap For Inhalation IH SCH (10:45)
[2016-11-16] MEDS ORDERED: MODAFINIL 200 MG PO SCH (10:45)
[2016-11-16] MEDS ORDERED: TRIAMTERENE 37.5 MG PO SCH (10:45)
--- NOTE | 2016-11-16 11:34 | HP ---
HISTORY OF PRESENT ILLNESS: Ms. Vickers is a 81-year-old female presented to the ED with episodes of shortness of breath, dizziness, and nausea after taking Solu-Medrol. She reports she almost passed out. Denied any loss of consciousness. No fever, no chills, no rigors. No nausea or vomiting. She has history of COPD, fairly controlled with current medications, hypertension, blood pressure controlled with current medications. No recent exacerbation. She also has diverticulitis, no recent episodes. Condition stable. PAST MEDICAL HISTORY: Diverticulitis, COPD, hypertension, asthma, hyperthyroidism, reflux. PAST SURGICAL HISTORY: Bilateral knee replacement. ALLERGIES: LATEX, MOXIFLOXACIN, OXYCODONE, PERSONAL HISTORY: Former smoker. Lives at home. FAMILY HISTORY: No positive family history of mother and father. HOME MEDICATIONS: Xanax 0.25 mg daily, aspirin 81 mg daily, levothyroxine 150 mcg daily, Singulair 10 mg daily, Spiriva 18 mcg daily, amlodipine 10 mg daily, Provigil 200 mg, triamterene 37.5 mg daily, Advair Diskus 1 daily, and omeprazole 40 mg REVIEW OF SYSTEMS: As per HPI, a 12-point review of systems reviewed and negative. PHYSICAL EXAMINATION GENERAL: Comfortable in bed, in no acute distress. VITAL SIGNS: Temperature 98.4, heart rate 76 per minute, respiratory rate 24 per minute, blood pressure 156/87, pulse ox is 94% on room air. HEENT: Pallor positive. Rest normal. NECK: No lymphadenopathy. CHEST: Air entry present equal and bilaterally. No added sounds. CARDIOVASCULAR: S1 and S2 normal. No murmur, no gallop. ABDOMEN: Soft and nontender. No hepatosplenomegaly. EXTREMITIES: No edema. CENTRAL NERVOUS SYSTEM: Alert and oriented x3. SPINE: Normal. SKIN: No petechiae. No rash. LABORATORY DATA: White count 8.6, hemoglobin 14.1, hematocrit 44. Glucose 302, monocyte 78%, granulocyte 68%, alkaline phosphatase 94, LDH 640, troponin less than 0.01, and BNP 336, protein 7.5, total bilirubin 0.5, AST 35, ALT 52. ASSESSMENT AND PLAN: 1. Syncope. 2. Hypertension. 3. History of diverticulitis. 4. Chronic obstructive pulmonary disease. 5. Granulocytosis and monocytosis. PLAN: She will be admitted to the hospital telemonitoring. Neurology consultation, Dr. Britt requested. Levothyroxine 150 mcg daily, Singular 10 mg daily, Spiriva 18 mcg inhalation daily, DuoNeb q.4 hours p.r.n., Tylenol 650 q.4 hours p.r.n. for pain, aspirin 81 mg daily. Chest x-ray did not show infiltrate. EKG no ST-T changes. Troponin is negative. We will get cardiology consultation with Dr. Delgado. Danita Taylor MD
[2016-11-16 13:42] VITALS: BP 134/79; PULSE 80; RESP 16; TEMP 98.2
--- NOTE | 2016-11-16 15:47 | RAD ---
HISTORY: sob COMPARISON: 11/13/2016 FINDINGS: LUNGS: No active pulmonary disease. PLEURA: No significant pleural effusion identified, no pneumothorax apparent. CARDIOVASCULAR: Normal. OSSEOUS STRUCTURES: No significant abnormalities. VISUALIZED UPPER ABDOMEN: Normal. OTHER FINDINGS: None. IMPRESSION: No active disease.
--- NOTE | 2016-11-18 23:46 | CP.PCM.DIS ---
Provider - Provider Date of Admission: 11/16/16 04:00 Attending physician: Ministerio Ramey MD Time Spent in preparation of Discharge (in minutes): 60 Hospital Course - Lab Results Lab Results: Most Recent Lab Values WBC 8.6 10^3/ul (4.5-11.0) 11/16/16 02:30 RBC 5.12 10^6/uL (3.5-6.1) 11/16/16 02:30 Hgb 14.1 g/dL (12.0-16.0) 11/16/16 02:30 Hct 44.0 % (36.0-48.0) 11/16/16 02:30 MCV 85.9 fl (80.0-105.0) 11/16/16 02:30 MCH 27.5 pg (25.0-35.0) 11/16/16 02:30 MCHC 32.0 g/dl (31.0-37.0) 11/16/16 02:30 RDW 15.0 % (11.5-14.5) H 11/16/16 02:30 Plt Count 302 10^3/uL (120.0-450.0) 11/16/16 02:30 MPV 9.0 fl (7.0-11.0) 11/16/16 02:30 Gran % 68.4 % (50.0-68.0) H 11/16/16 02:30 Lymph % (Auto) 22.2 % (22.0-35.0) 11/16/16 02:30 [place] % (Auto) 7.8 % (1.0-6.0) H 11/16/16 02:30 Eos % (Auto) 1.3 % (1.5-5.0) L 11/16/16 02:30 Baso % (Auto) 0.3 % (0.0-3.0) 11/16/16 02:30 Gran # 5.89 (1.4-6.5) 11/16/16 02:30 Lymph # 1.9 (1.2-3.4) 11/16/16 02:30 [place] # 0.7 (0.1-0.6) H 11/16/16 02:30 Eos # 0.1 (0.0-0.7) 11/16/16 02:30 Baso # 0.03 K/mm3 (0.0-2.0) 11/16/16 02:30 Sodium 144 mmol/L (132-148) 11/16/16 02:30 Potassium 4.1 mmol/L (3.6-5.0) 11/16/16 02:30 Chloride 101 mmol/L (98-107) 11/16/16 02:30 Carbon Dioxide 31 mmol/L (21-33) 11/16/16 02:30 Anion Gap 16 (10-20) 11/16/16 02:30 BUN 20 mg/dL (7-21) 11/16/16 02:30 Creatinine 0.6 mg/dL (0.5-1.4) 11/16/16 02:30 Est GFR ( Amer) > 60 11/16/16 02:30 Est GFR (Non-Af Amer) > 60 11/16/16 02:30 Random Glucose 84 mg/dL (70-110) 11/16/16 02:30 Calcium 9.1 mg/dL (8.4-10.5) 11/16/16 02:30 Total Bilirubin 0.5 mg/dL (0.2-1.3) 11/16/16 02:30 AST 35 U/L (14-36) 11/16/16 02:30 ALT 52 U/L (7-56) 11/16/16 02:30 Alkaline Phosphatase 94 U/L (38-126) 11/16/16 02:30 Lactate Dehydrogenase 640 U/L (333-699) 11/16/16 02:30 Total Creatine Kinase 47 U/L (35-230) 11/16/16 02:30 Troponin I < 0.01 ng/mL 11/16/16 02:30 NT-Pro-B Natriuret Pep 336 pg/mL (0-450) 11/16/16 02:30 Total Protein 7.5 g/dL (5.8-8.3) 11/16/16 02:30 Albumin 4.5 g/dL (3.0-4.8) 11/16/16 02:30 Globulin 3.0 gm/dL 11/16/16 02:30 Albumin/Globulin Ratio 1.5 (1.1-1.8) 11/16/16 02:30 Urine Color Light yellow (YELLOW) 11/16/16 04:40 Urine Appearance Clear (CLEAR) 11/16/16 04:40 Urine pH 6.0 (4.7-8.0) 11/16/16 04:40 Ur Specific [place] <= 1.005 (1.005-1.035) 11/16/16 04:40 Urine Protein Negative mg/dL (<30 mg/dL) 11/16/16 04:40 Urine Glucose (UA) Negative mg/dL (NEGATIVE) 11/16/16 04:40 Urine Ketones Negative mg/dL (NEGATIVE) 11/16/16 04:40 Urine Blood Negative (NEGATIVE) 11/16/16 04:40 Urine Nitrate Negative (NEGATIVE) 11/16/16 04:40 Urine Bilirubin Negative (NEGATIVE) 11/16/16 04:40 Urine Urobilinogen 0.2 E.U./dL (<1 E.U./dL) 11/16/16 04:40 Ur Leukocyte Esterase Negative [place]/uL (NEGATIVE) 11/16/16 04:40 - Hospital Course Hospital Course: please see detail note dictated for 11/16/2016. pt. stable. discharge home. - Date & Time of H&P Date of H&P: 11/16/16 Time of H&P: 16:00 Discharge Plan - Follow Up Plan Condition: GOOD Disposition: HOME/ ROUTINE Instructions: Near Syncope (ED) Additional Instructions: please follow up with all doctor appts please take medication as ordered. any discomfort please call your doctor or go to the nearest emergency room.
== END 2016-11-16 15:54 | disposition home or self-care (01) ==
LOC: ED 02:17 → ERH 04:00 → 2RNO 05:04 → UNDODISOB 15:37
PROVIDERS: ADMIT Internal Medicine Nephrology; ATTEND Internal Medicine Nephrology
DX: R55 Syncope and collapse (principal); J44.9 Chronic obstructive pulmonary disease, unspecified; I10 Essential (primary) hypertension; K21.9 Gastro-esophageal reflux disease without esophagitis; E03.9 Hypothyroidism, unspecified; Z79.82 Long term (current) use of aspirin; Z79.899 Other long term (current) drug therapy; Z96.653 Presence of artificial knee joint, bilateral; Z87.891 Personal history of nicotine dependence
CPT/HCPCS: 70450; 71010; 80053; 81003; 82550; 83615; 83880; 84484; 85025; 93005; 96374; 99285; G0378; J2060

== ENCOUNTER 2017-02-22 23:18 | Inpatient (IN) | payer MEDICARE, BC ==
--- NOTE | 2017-02-23 00:23 | ED PDOC ---
Arrival/HPI - General Chief Complaint: Shortness Of Breath Time Seen by Provider: 02/23/17 00:07 Historian: Patient - History of Present Illness Narrative History of Present Illness (Text): 02/23/17 00:29 81 year old female, whose past medical history includes diverticulitis, asthma, COPD, emphysema, spinal stenosis, macular degeneration, sleep aphasia, and hypertension, presents to the emergency department complaining of abdominal pain associated with nausea. Patient reports she woke up 5 days ago with nausea and the next day began having abdominal pain as well as constipation Patient reports she took a stool softener with no relief. She reports the constant pain was unbearable that it exacerbated her COPD. Patient's last bowel movement was 5 days ago and was normal. Patient denies any fever, chills, chest pain, shortness of breath, vomiting, diarrhea, urinary symptoms, back pain, neck pain , headache, dizziness, or any other complaints. PMD: Dr. Jorge Time/Duration: Other (5 days) Symptom Onset: Sudden Symptom Course: Unchanged Activities at Onset: Light Context: Home Past Medical History - Provider Review Nursing Documentation Reviewed: Yes - Infectious Disease Hx of Infectious Diseases: None - Tetanus Immunization Tetanus Immunization: Unknown - Cardiac Hx Cardiac Disorders: Yes Hx Hypertension: Yes - Pulmonary Hx Respiratory Disorders: Yes Hx Asthma: Yes Hx Chronic Obstructive Pulmonary Disease (COPD): Yes Hx Pneumonia: Yes - Neurological Hx Neurological Disorder: No - HEENT Hx HEENT Disorder: No - Renal Hx Renal Disorder: No - Endocrine/Metabolic Hx Endocrine Disorders: Yes Hx Hypothyroidism: Yes - Hematological/Oncological Hx Blood Disorders: No - Integumentary Hx Dermatological Disorder: No - Musculoskeletal/Rheumatological Hx Musculoskeletal Disorders: Yes Hx Falls: Yes - Gastrointestinal Hx Gastrointestinal Disorders: Yes Hx Gastroesophageal Reflux: Yes Other/Comment: constipation - Genitourinary/Gynecological Hx Genitourinary Disorders: No - Psychiatric Hx Emotional Abuse: No Hx Physical Abuse: No Hx Substance Use: No - Surgical History Hx Orthopedic Surgery: Yes (bilateral knee) - Anesthesia Hx Anesthesia Reactions: No (DIFFICULTY AFTER ANESTHEISA) Hx Malignant Hyperthermia: No - Suicidal Assessment Feels Threatened In Home Enviroment: No Family/Social History - Physician Review Nursing Documentation Reviewed: Yes Family/Social History: No Known Family HX Smoking Status: Former Smoker Hx Alcohol Use: No Hx Substance Use: No Allergies/Home Meds Allergies/Adverse Reactions: Allergies latex Allergy (Verified 02/23/17 17:49) ANAPHYLAXIS moxifloxacin HCl [From Avelox] Allergy (Verified 02/23/17 17:49) RASH oxycodone HCl [From Percocet] Allergy (Verified 02/23/17 17:49) RASH Home Medications: Home Meds Medication Instructions Recorded Confirmed ALPRAZolam [Xanax] 0.25 mg PO DAILY 02/24/16 02/23/17 Aspirin [Ecotrin] 81 mg PO DAILY 02/24/16 02/23/17 Fluticasone/Salmeterol 250/50 250 mg IH DAILY 02/24/16 02/23/17 [Advair Diskus 250/50] Levothyroxine [Synthroid] 150 mcg PO DAILY 02/24/16 02/23/17 Montelukast [Singulair] 10 mg PO DAILY 02/24/16 02/23/17 Tiotropium [Spiriva] 18 mcg IH DAILY 02/24/16 02/23/17 amLODIPine [Norvasc] 10 mg PO DAILY 02/24/16 02/23/17 Modafinil [Provigil] 200 mg PO DAILY 11/13/16 02/23/17 Triamterene [Dyrenium] 37.5 mg PO DAILY 11/13/16 02/23/17 Acetaminophen [Tylenol 325mg tab] 325 mg PO BID 11/16/16 02/23/17 Fluticasone/Salmeterol 250/50 1 dsk IH DAILY 11/16/16 02/23/17 [Advair Diskus] Omeprazole 40 mg PO DAILY 11/16/16 02/23/17 Review of Systems - Physician Review All systems were reviewed & negative as marked: Yes - Review of Systems Constitutional: absent: Fevers, Other (Chills) Respiratory: absent: SOB Cardiovascular: absent: Chest Pain Gastrointestinal: Abdominal Pain, Constipation, Nausea Musculoskeletal: absent: Back Pain, Neck Pain Neurological: absent: Headache, Dizziness Physical Exam Vital Signs Reviewed: Yes Vital Signs Temp Pulse Resp BP Pulse Ox 02/23/17 17:36 98.3 F 75 20 117/73 92 L 02/23/17 10:49 142/67 02/23/17 06:23 72 18 160/92 H 94 L 02/23/17 04:09 80 18 158/85 H 96 02/23/17 01:36 89 17 159/96 H 95 02/22/17 23:50 18 98 02/22/17 23:31 97.4 F L 86 18 142/93 H 92 L Temperature: Afebrile Blood Pressure: Normal Pulse: Regular Respiratory Rate: Normal Appearance: Positive for: Well-Appearing, Non-Toxic, Comfortable Pain Distress: None Mental Status: Positive for: Alert and Oriented X 3 - Systems Exam Head: Present: Atraumatic, Normocephalic Pupils: Present: PERRL Extroacular Muscles: Present: EOMI Conjunctiva: Present: Normal Mouth: Present: Moist Mucous Membranes Neck: Present: Normal Range of Motion Respiratory/Chest: Present: Clear to Auscultation, Good Air Exchange. No: Respiratory Distress, Accessory Muscle Use Cardiovascular: Present: Regular Rate and Rhythm, Normal S1, S2. No: Murmurs Abdomen: Present: Tenderness (Tender to palpation on all 4 quadrants. ), Other ( Hyperactive bowel sounds). No: Distention, Peritoneal Signs, Rebound Back: Present: Normal Inspection Upper Extremity: Present: Normal Inspection. No: Cyanosis, Edema Lower Extremity: Present: Normal Inspection, Swelling (diffuse swelling on lower extremity primarily around the left knee). No: Edema Neurological: Present: GCS=15, CN II-XII Intact, Speech Normal Skin: Present: Warm, Dry, Normal Color. No: Rashes Psychiatric: Present: Alert, Oriented x 3, Normal Insight, Normal Concentration Medical Decision Making ED Course and Treatment: 02/23/17 00:28 Impression: 81 year old male presents complaining of abdominal pain associated with nausea and constipation that began 3-4 days ago. Plan: -- CT Abdomen and Pelvis -- Labs -- US Duplex lower extrm vein left. -- Reassess and disposition Prior Visits: Notes and results from previous visits were reviewed. Patient was last seen in the emergency department on 11/16/16 presents complaining of dizziness, shortness of breath, and nausea after taking Solumedrol medication. Patient was admitted. Progress Notes: 02/23/17 00:30 Patient reports her oxygen level is usually 80 but will be as high as 92. Patient was seen by her on line csr prescribed oxygen but can not get due to her insurance will not pay. EXAM:CT Abdomen and Pelvis With Intravenous Contrast Dictated and Authenticated by: Maria Luisa Donnelly MD 02/23/2017 5:01 AM IMPRESSION: - Findings suspicious for mild colitis, involving the left colon. There is colonic diverticulosis, without definite acute diverticulitis. - Small amount of abdominal and pelvic free fluid. - See above for remaining findings 02/23/17 05:[address] Ramey who is aware and agrees with the plan. Patient will be admitted for diverticulitis. - Lab Interpretations Lab Results: 02/23/17 01:40 02/23/17 01:40 Lab Results 02/23/17 01:40: Sodium 139, Potassium 3.6, Chloride 96 L, Carbon Dioxide 29, Anion Gap 18, BUN 19, Creatinine 0.6 L, Est GFR ( Amer) > 60, Est GFR ( Non-Af Amer) > 60, Random Glucose 127 H, Calcium 10.7 H, Total Bilirubin 0.7, AST 22, ALT 35, Alkaline Phosphatase 89, Total Protein 8.3, Albumin 4.7, Globulin 3.6, Albumin/Globulin Ratio 1.3, Lipase 27 02/23/17 01:40: PT 10.9, INR 0.96 02/23/17 01:40: WBC 14.5 H D, RBC 5.63, Hgb 15.6, Hct 47.7, MCV 84.7, MCH 27.7, MCHC 32.7, RDW 14.9 H, Plt Count 287, MPV 9.7, Gran % 80.1 H, Lymph % (Auto) 12.8 L, [place] % (Auto) 5.5, Eos % (Auto) 1.4 L, Baso % (Auto) 0.2, Gran # 11.61 H , Lymph # 1.9, [place] # 0.8 H, Eos # 0.2, Baso # 0.03 I have reviewed the lab results: Yes - RAD Interpretation Radiology Orders: 02/23/17 00:25 ABDOMEN & PELVIS [ABD PELVIS PO & IV CONTRAST] [CT] Stat DUPLEX LOWER EXTRM VEIN LEFT [US] Stat - Medication Orders Current Medication Orders: Discontinued Medications Acetaminophen (Tylenol 325mg Tab) 325 mg PO Q4 PRN PRN Reason: Pain, Mild (1-3) Last Admin: 02/24/17 08:56 Dose: 325 mg MAR Pain/Vitals Document 02/24/17 08:56 EP (Rec: 02/24/17 08:56 EP [facility] [id number] Pain Reassessment Is This A Pain ReAssessment? No Sleep Is patient sleeping during reassessment? No Presence of Pain Presence of Pain Yes Pain Scale Used Pain Scale Used Numeric Location Upper or Lower Lower Pain Location Body Site Abdomen Description Intermittent Intensity 8 Scale Used Numeric Pain Behavior Restlessness Aggravating Factors ADL's Re-Assess: [facility] Pain/Vitals Document 02/24/17 09:56 EP (Rec: 02/24/17 13:29 EP [facility] [id number] Pain Reassessment Is This A Pain ReAssessment? Yes Sleep Is patient sleeping during reassessment? No Presence of Pain Presence of Pain No Acetaminophen (Tylenol 325mg Tab) 650 mg PO Q4H PRN PRN Reason: Pain, moderate (4-7) Last Admin: 02/25/17 10:28 Dose: 650 mg Alprazolam (Xanax) 0.25 mg PO Q6 PRN; Protocol PRN Reason: Anxiety Stop: 03/02/17 12:01 Last Admin: 02/24/17 21:39 Dose: 0.25 mg Behavioural Document 02/24/17 21:39 IMT (Rec: 02/24/17 21:39 IMT [id number]) Maintenance Maintenance Dose Yes Nonmedicinal Nonmedicinal Interventions Redirect Behavior Behavior for Medication: Anxiety Insomnia Amlodipine Besylate (Norvasc) 10 mg PO DAILY [facility] Last Admin: 02/26/17 09:10 Dose: 10 mg MAR Blood Pressure Document 02/26/17 09:10 HEATHER (Rec: 02/26/17 09:10 [place] [facility] [id number] Blood Pressure Blood Pressure (100/60-150/90) 126/60 Arformoterol Tartrate (Brovana) 15 mcg IH [id number] [facility] Last Admin: 02/26/17 07:29 Dose: 15 mcg Aspirin (Ecotrin) 81 mg PO DAILY [facility] Last Admin: 02/26/17 09:09 Dose: 81 mg Budesonide (Pulmicort Respules) 0.5 mg IH [id number] [facility] Last Admin: 02/26/17 07:30 Dose: 0.5 mg Docusate Sodium (Colace) 100 mg PO DAILY [facility] Last Admin: 02/26/17 09:09 Dose: 100 mg Metronidazole (Flagyl) 500 mg in 100 mls @ 100 mls/hr IVPB STAT STA PRN Reason: Protocol Stop: 02/23/17 06:20 Last Admin: 02/23/17 05:52 Dose: 100 mls/hr eMAR Start Stop Document 02/23/17 05:52 IT (Rec: 02/23/17 05:52 IT [id number]) Intravenous Solution Start Date 02/23/17 Start Time 05:52 End Date 02/23/17 End time 06:52 Total Infusion Time 60 Ceftriaxone Sodium (Rocephin 1 Gram Ivpb) 1 gm in 100 mls @ 200 mls/hr IVPB STAT STA PRN Reason: Protocol Stop: 02/23/17 06:20 Last Admin: 02/23/17 06:46 Dose: 200 mls/hr eMAR Start Stop Document 02/23/17 06:46 IT (Rec: 02/23/17 06:46 IT [id number]) Intravenous Solution Start Date 02/23/17 Start Time 06:46 End Date 02/23/17 End time 07:20 Total Infusion Time 34 Metronidazole (Flagyl) 500 mg in 100 mls @ 100 mls/hr IVPB Q8 RAFFI PRN Reason: Protocol Last Admin: 02/26/17 06:30 Dose: 100 mls/hr eMAR Start Stop Document 02/26/17 06:30 IMT (Rec: 02/26/17 06:30 IMT [facility] [id number] Intravenous Solution Start Date 02/26/17 Start Time 06:30 End Date 02/26/17 End time 07:30 Total Infusion Time 60 Ceftriaxone Sodium (Rocephin 1 Gram Ivpb) 1 gm in 100 mls @ 100 mls/hr IVPB DAILY RAFFI PRN Reason: Protocol Last Admin: 02/26/17 11:14 Dose: 100 mls/hr eMAR Start Stop Document 02/26/17 11:14 HEATHER (Rec: 02/26/17 11:14 HEATHER [facility] [id number][place] Intravenous Solution Start Date 02/26/17 Start Time 11:14 Potassium Chloride (Potassium Chloride 10 Meq/100 Ml) 10 meq in 100 mls @ 50 mls/hr IVPB Q2H RAFFI Stop: 02/25/17 14:29 Last Admin: 02/25/17 14:31 Dose: Not Given Non-Admin Reason: Patient Refused Comments: [employer] made aware. will change to po Levothyroxine Sodium (Synthroid) 150 mcg PO DAILY [facility] Last Admin: 02/26/17 11:14 Dose: 150 mcg Metronidazole (Flagyl) 500 mg PO Q8 [facility] Montelukast Sodium (Singulair) 10 mg PO DAILY [facility] Last Admin: 02/26/17 09:09 Dose: 10 mg Morphine Sulfate (Morphine) 4 mg IVP STAT STA Stop: 02/23/17 00:31 Last Admin: 02/23/17 01:02 Dose: 4 mg MAR Pain Assessment Document 02/23/17 01:02 IT (Rec: 02/23/17 01:02 IT [id number]) Pain Reassessment Is this a pain reassessment? No Sleep Is patient sleeping during reassessment? No Presence of Pain Presence of Pain Yes Pain Scale Used Pain Scale Used Numeric IVP Administration Document 02/23/17 01:02 IT (Rec: 02/23/17 01:02 IT [id number]) Charges for Administration # of IVP Administrations 1 Morphine Sulfate (Morphine) 4 mg IVP STAT STA Stop: 02/23/17 05:44 Last Admin: 02/23/17 06:00 Dose: 4 mg MAR Pain Assessment Document 02/23/17 06:00 IT (Rec: 02/23/17 06:01 IT [id number]) Pain Reassessment Is this a pain reassessment? No Sleep Is patient sleeping during reassessment? No Presence of Pain Presence of Pain Yes Pain Scale Used Pain Scale Used Numeric Location Left, Right or Bilateral Bilateral Pain Location Body Site Abdomen IVP Administration Document 02/23/17 06:00 IT (Rec: 02/23/17 06:01 IT [id number]) Charges for Administration # of IVP Administrations 1 Morphine Sulfate (Morphine) 4 mg IVP Q4 PRN PRN Reason: Pain, moderate (4-7) Last Admin: 02/26/17 09:10 Dose: 4 mg MAR Pain Assessment Document 02/26/17 09:10 HEATHER (Rec: 02/26/17 09:10 HEATHER [facility] [id number][place] Pain Reassessment Is this a pain reassessment? No Presence of Pain Presence of Pain Yes IVP Administration Document 02/26/17 09:10 HEATHER (Rec: 02/26/17 09:10 HEATHER [facility] [id number][place] Charges for Administration # of IVP Administrations 1 Modafinil [Provigil] (200 Mg (Home Med)) 200 mg PO DAILY [facility] Last Admin: 02/25/17 10:00 Dose: Ondansetron HCl (Zofran Inj) 4 mg IVP STAT STA Stop: 02/23/17 00:31 Last Admin: 02/23/17 01:02 Dose: 4 mg IVP Administration Document 02/23/17 01:02 IT (Rec: 02/23/17 01:02 IT [id number]) Charges for Administration # of IVP Administrations 1 Ondansetron HCl (Zofran Inj) 4 mg IVP STAT STA Stop: 02/23/17 05:44 Last Admin: 02/23/17 06:01 Dose: 4 mg IVP Administration Document 02/23/17 06:01 IT (Rec: 02/23/17 06:01 IT [id number]) Charges for Administration # of IVP Administrations 1 Ondansetron HCl (Zofran Inj) 4 mg IVP Q6 PRN PRN Reason: Nausea/Vomiting Last Admin: 02/24/17 21:46 Dose: 4 mg IVP Administration Document 02/24/17 21:46 IMT (Rec: 02/24/17 21:46 IMT [id number]) Charges for Administration # of IVP Administrations 1 Pantoprazole Sodium (Protonix Inj) 40 mg IVP DAILY [facility] Last Admin: 02/25/17 10:27 Dose: 40 mg IVP Administration Document 02/25/17 10:27 HEATHER (Rec: 02/25/17 10:28 [place] [id number] Charges for Administration # of IVP Administrations 1 Pantoprazole Sodium (Protonix Ec Tab) 40 mg PO ACB [facility] Last Admin: 02/26/17 09:09 Dose: 40 mg Pneumococcal Polyvalent Vaccine (Pneumovax 23 Vaccine) 0.5 ml IM .ONCE ONE Stop: 02/23/17 19:10 Polyethylene Glycol (Miralax) 17 gm PO STAT STA Stop: 02/23/17 05:45 Last Admin: 02/23/17 06:35 Dose: 17 gm Polyethylene Glycol (Miralax) 17 gm PO ONCE ONE Stop: 02/24/17 12:08 Last Admin: 02/24/17 13:27 Dose: 17 gm Polyethylene Glycol (Miralax) 17 gm PO ONCE ONE Stop: 02/24/17 23:45 Last Admin: 02/25/17 00:00 Dose: 17 gm Polyethylene Glycol (Miralax) 17 gm PO ONCE ONE Stop: 02/25/17 23:21 Last Admin: 02/25/17 23:29 Dose: 17 gm Potassium Chloride (K-Dur 20 Meq Er Tab) 40 meq PO ONCE ONE Stop: 02/25/17 10:28 Last Admin: 02/25/17 11:03 Dose: 40 meq Potassium Chloride (K-Dur 20 Meq Er Tab) 40 meq PO ONCE ONE Stop: 02/25/17 14:38 Last Admin: 02/25/17 15:57 Dose: 40 meq Tiotropium Hickman (Spiriva) 18 mcg IH DAILY RAFFI Last Admin: 02/26/17 09:09 Dose: 18 mcg - Scribe Statement The provider has reviewed the documentation as recorded by the Ember Coello Provider Scribe Attestation: All medical record entries made by the Ember were at my direction and personally dictated by me. I have reviewed the chart and agree that the record accurately reflects my personal performance of the history, physical exam, medical decision making, and the department course for this patient. I have also personally directed, reviewed, and agree with the discharge instructions and disposition. Disposition/Present on Arrival - Present on Arrival Any Indicators Present on Arrival: No History of DVT/PE: No History of Uncontrolled Diabetes: No Urinary Catheter: No History of Decub. Ulcer: No History Surgical Site Infection Following: None - Disposition Have Diagnosis and Disposition been Completed?: Yes Diagnosis: Diverticulitis Disposition: HOSPITALIZED Disposition Time: 05:49 Patient Plan: Admission Condition: GOOD
[2017-02-23] MEDS ORDERED: Morphine 4 mg/ml ISec IVP STA ×2 (00:30→05:43)
[2017-02-23] MEDS ORDERED: Iohexol 240 (50 ml) ONE (01:11)
[2017-02-23 02:06] LABS: BASO # 0.03 K/mm3 (0.0-2.0); BASO % 0.2 % (0.0-3.0); EOS # 0.2 (0.0-0.7); EOS % 1.4 % (1.5-5.0); GRAN # 11.61 (1.4-6.5); GRAN % 80.1 % (50.0-68.0); HEMOGLOBIN 15.6 g/dL (12.0-16.0); LYMPH # 1.9 (1.2-3.4); LYMPH % 12.8 % (22.0-35.0); MEAN CELL VOLUME 84.7 fl (80.0-105.0); MEAN CORPUSCULAR HEMOGLOBIN 27.7 pg (25.0-35.0); MEAN CORPUSCULAR HGB CONC 32.7 g/dl (31.0-37.0); MEAN PLATELET VOLUME 9.7 fl (7.0-11.0); MONO # 0.8 (0.1-0.6); MONO % 5.5 % (1.0-6.0); RBC 5.63 10^6/uL (3.5-6.1); RED CELL DISTRIBUTION WIDTH 14.9 % (11.5-14.5); WHITE BLOOD COUNT 14.5 10^3/ul (4.5-11.0)
[2017-02-23 02:07] LABS: ALB/GLOB RATIO 1.3 (1.1-1.8); ALBUMIN 4.7 g/dL (3.0-4.8); ALT/SGPT 35 U/L (7-56); AST/SGOT 22 U/L (14-36); BLOOD UREA NITROGEN 19 mg/dL (7-21); CALCIUM 10.7 mg/dL (8.4-10.5); GFR AFRICAN-AMERICAN > 60; GFR NON-AFRICAN AMERICAN > 60; LIPASE 27 U/L (23-300)
[2017-02-23 02:08] LABS: INR 0.96 (0.93-1.08); PROTHROMBIN TIME 10.9 SECONDS (9.4-12.5)
[2017-02-23] MEDS ORDERED: Iohexol 350 MG/100 ML VIAL ONE (03:27)
--- NOTE | 2017-02-23 05:02 | CT ---
EXAM: CT Abdomen and Pelvis With Intravenous Contrast EXAM DATE/TIME: 02/23/2017 12:25 AM CLINICAL HISTORY: 81 years old, female; Pain; Abdominal pain; Additional info: ? Diverticulitis? TECHNIQUE: Axial computed tomography images of the abdomen and pelvis with intravenous contrast. All CT scans at this facility use one or more dose reduction techniques, viz.: automated exposure control; ma/kV adjustment per patient size (including targeted exams where dose is matched to indication; i.e. head); or iterative reconstruction technique. Coronal and sagittal reformatted images were created and reviewed. CONTRAST: 96 mL of OMNI 350 administered intravenously. COMPARISON: Prior CT abdomen and pelvis of 2016-06-20 FINDINGS: LOWER THORAX: Coronary artery calcification. ABDOMEN: LIVER: Liver appears enlarged, and demonstrates diffuse fatty infiltration. GALLBLADDER AND BILE DUCTS: Tiny gallstones. No CT evidence of acute cholecystitis. PANCREAS: No CT evidence of acute pancreatitis. SPLEEN: Stable small low density lesion in the spleen, most likely representing a cyst or hemangioma. ADRENALS: No acute abnormality of the adrenal glands identified. KIDNEYS AND URETERS: Small low density lesions in the kidneys bilaterally, most likely representing cysts. The largest of these measures 1.2 cm STOMACH AND BOWEL: Mild, diffuse wall thickening involving the descending and proximal sigmoid colon, associated with mild infiltration of the pericolonic fat . Findings are suspicious for mild colitis. There is extensive diverticulosis of the left colon, with no definite focal peridiverticular inflammatory changes to suggest acute diverticulitis. Retained stool noted throughout the colon. Otherwise, no significant abnormality of the bowel is identified. No acute abnormality of the stomach or duodenum identified. No evidence of small bowel obstruction. APPENDIX: Appendix is seen, and is within normal limits in appearance. PELVIS: BLADDER: No acute abnormality of the bladder identified. REPRODUCTIVE: No acute abnormality of the reproductive organs is seen. ABDOMEN and PELVIS: INTRAPERITONEAL SPACE: Small amount of abdominal and pelvic free fluid. No evidence of free air. No evidence of focal fluid collection or abscess. BONES/JOINTS: No acute fractures or other acute bony abnormality noted. SOFT TISSUES: Small umbilical hernia, containing only fat. VASCULATURE: No evidence of abdominal aortic aneurysm. No evidence of periaortic hemorrhage. LYMPH NODES: Stable appearance of a mildly enlarged periportal lymph node, image 50/series 3, measuring 2 x 1.3 cm, nonspecific finding. No evidence of diffuse pathologic lymphadenopathy. IMPRESSION: - Findings suspicious for mild colitis, involving the left colon. There is colonic diverticulosis, without definite acute diverticulitis. - Small amount of abdominal and pelvic free fluid. - See above for remaining findings.
[2017-02-23] MEDS ORDERED: metroNIDAZOLE IV 500 mg/100 ml 500 MG/100 ML BAG IVPB STA (05:21)
[2017-02-23] MEDS ORDERED: POLYETHYLENE GLYCOL 3350 17 GM/Dose PACKET PO STA (05:44)
[2017-02-23] MEDS ORDERED: cefTRIAXone 1 gm 1 GM/100 ML BAG IVPB STA (05:51)
--- NOTE | 2017-02-23 09:17 | US ---
PROCEDURE: Left lower extremity venous US HISTORY: Leg pain and swelling. Evaluate for DVT. PHYSICIAN(S): Yuval Coffey MD. TECHNIQUE: Duplex sonography and color-flow Doppler with graded compression were used to evaluate the deep venous system of the left lower extremity. FINDINGS: The visualized deep venous system of the left lower extremity is sonographically normal and compressible. Normal wave forms and augmentation are seen. There is no sonographic evidence for deep venous thrombosis in the visualized segments of the left lower extremity. IMPRESSION: 1. No sonographic evidence for deep venous thrombosis in the visualized segments of the left lower extremity.
[2017-02-23] MEDS: Arformoterol 15 mcg/2 ml Inh Sol IH SCH (09:24)
[2017-02-23] MEDS: Budesonide 0.5 mg/2 ml Inhal Susp UD IH SCH (09:25)
[2017-02-23] MEDS ORDERED: Fluticasone-Salmeterol 250-50mcg Diskus IH SCH (10:00)
--- NOTE | 2017-02-23 10:34 | HP ---
CHIEF COMPLAINT AND HISTORY OF PRESENT ILLNESS: This is a 81-year-old female who is coming into the hospital complaining of shortness of breath. She states she is having abdominal discomfort as well. She does have a history of diverticulitis, asthma, COPD, emphysema, spinal stenosis, macular degeneration, sleep apnea, and hypertension. The patient states she is having abdominal discomfort mostly in the suprapubic area. She states it is associated with nausea. She states she started having nausea for the past five days. She has been having abdominal pain as well as constipation. She is taking stool softeners, but it did not offer much relief. She also has been constipated. She has difficulty walking because of chronic pain in the left leg. She takes Tylenol. She has no headache, no dizziness. No dysuria or frequency. No weakness in the arms or the legs. No back pain. REVIEW OF SYSTEMS: All other review of symptoms are within normal limits except as mentioned. ALLERGIES: TO LATEX, MOXIFLOXACIN, OXYCODONE. MEDICATIONS: Her home medications has been reviewed. PAST MEDICAL HISTORY: As above. PAST SURGICAL HISTORY: Bilateral knee surgery. SOCIAL HISTORY: She is a former smoker. She quit about 15 years ago. She is smoking one pack per day. She denies alcohol or drug use. PHYSICAL EXAMINATION VITAL SIGNS: Temperature is 97.4, pulse of 86, blood pressure of 142/93, respirations of 18, and O2 saturation 92%. Height is 5 feet 1 inch, weight is 180 pounds, and BMI is 34. GENERAL: The patient lying in bed, uncomfortable, and in no acute distress. HEENT: Atraumatic and normocephalic. Anicteric sclerae. Moist mucosa. [place] conjunctivae. No oral lesions. NECK: No JVD, anterior and posterior adenopathy, thyromegaly, or bruits. CARDIOVASCULAR: S1 and S2 regular. No murmur, rubs, or gallop. LUNGS: Clear to auscultation bilaterally. No wheezes, rales, or rhonchi. ABDOMEN: Bowel sounds are positive. Soft, nontender and nondistended. No hepatosplenomegaly. No rebound and no guarding EXTREMITIES: No cyanosis, clubbing, or edema. NEUROLOGIC: No facial asymmetry. Tongue is midline. No uvula deviation. Power is 5/5 upper extremity and lower extremity. Sensation intact in upper extremity and lower extremity. PSYCHIATRIC: She is awake, alert and oriented x3. No anxiety or depression. She has normal affect. GENITOURINARY: No CVA tenderness. VASCULAR: 2+ pulses in the carotid pulses and pedal pulses. SKIN: No erythema or nodules SPINE: Shows normal curvature. LABORATORY DATA: White count of 14.5. The patient's creatinine is 0.6, calcium is 10.7, INR is 0.96. The patient's labs have been reviewed. CT of the abdomen and pelvis done shows findings suspicious from mild colitis. There is colonic diverticulosis without definitive acute diverticulitis. There is a small amount of abdominal and pelvic free fluid. ASSESSMENT: 1. Colitis. 2. Asthma. 3. Hypertension. 4. Hypothyroidism. 5. Hypokalemia. PLAN: The patient is currently comfortable. She was given Flagyl and Rocephin for antibiotics. She will be admitted to the hospital. Left leg Doppler study is still pending. The patient is on amlodipine for hypertension. Continue GI evaluation. I will also get the patient to continue on her Provigil. She is on Spiriva for her breathing. She is also on Singulair. The patient is receiving Synthroid for hypothyroidism. The patient is on Xanax as needed. The patient was getting morphine for pain that has helped her pain as well. Ministerio Ramey MD
[2017-02-23] MEDS: Levothyroxine 150 MCG TAB PO SCH (10:49)
[2017-02-23] MEDS: cefTRIAXone 1 gm 1 GM/100 ML BAG IVPB SCH (10:49)
[2017-02-23] MEDS: metroNIDAZOLE IV 500 mg/100 ml 500 MG/100 ML BAG IVPB SCH ×3 (10:50→22:14)
[2017-02-23] MEDS: Tiotropium 18 mcg Cap For Inhalation IH SCH (10:50)
[2017-02-23] MEDS: MODAFINIL 200 MG PO SCH (10:50)
--- NOTE | 2017-02-23 11:59 | CP.PCM.CON ---
History of Present Illness - History of Present Illness History of Present Illness: 81 year old female with PMH of diverticulitis, COPD, spinal stenosis, macular degeneration, sleep apnea, HTN, obesity with BMI 34 came in to the ED complaining of nausea and abdominal pain for the past 3-4 days and has been constipated for the past 5 days. She denies eating anything out of the ordinary , no fever or chills, no vomiting, no headache or dizziness, no chest pain, no SOB, no sore throat, no cough or colds, no diarrhea, no dysuria, no travel outside of [place] in the past 3 months, denies animal contacts. In the ED, CT A/P was done which showed left sided colitis and Infectious Diseases consult is requested to further evaluate and manage. Review of Systems - Review of Systems All systems: reviewed and no additional remarkable complaints except (as per HPI ) Past Patient History - Infectious Disease Hx of Infectious Diseases: None - Tetanus Immunizations Tetanus Immunization: Unknown - Past Social History Smoking Status: Former Smoker - CARDIAC Hx Cardiac Disorders: Yes Hx Hypertension: Yes - PULMONARY Hx Respiratory Disorders: Yes Hx Asthma: Yes Hx Chronic Obstructive Pulmonary Disease (COPD): Yes Hx Pneumonia: Yes - NEUROLOGICAL Hx Neurological Disorder: No - HEENT Hx HEENT Problems: No - RENAL Hx Chronic Kidney Disease: No - ENDOCRINE/METABOLIC Hx Endocrine Disorders: Yes Hx Hypothyroidism: Yes - HEMATOLOGICAL/ONCOLOGICAL Hx Blood Disorders: No - INTEGUMENTARY Hx Dermatological Problems: No - MUSCULOSKELETAL/RHEUMATOLOGICAL Hx Musculoskeletal Disorders: Yes Hx Falls: Yes - GASTROINTESTINAL Hx Gastrointestinal Disorders: Yes Hx Gastroesophageal Reflux: Yes Other/Comment: constipation - GENITOURINARY/GYNECOLOGICAL Hx Genitourinary Disorders: No - PSYCHIATRIC Hx Emotional Abuse: No Hx Physical Abuse: No Hx Substance Use: No - SURGICAL HISTORY Hx Orthopedic Surgery: Yes (bilateral knee) - ANESTHESIA Hx Anesthesia Reactions: No (DIFFICULTY AFTER ANESTHEISA) Hx Malignant Hyperthermia: No Meds Allergies/Adverse Reactions: Allergies Allergy/AdvReac Type Severity Reaction Status Date / Time latex Allergy ANAPHYLAXIS Verified 02/23/17 00:02 moxifloxacin HCl Allergy RASH Verified 02/23/17 00:02 [From Avelox] oxycodone HCl [From Percocet] Allergy RASH Verified 02/23/17 00:02 - Medications Medications: Current Medications Acetaminophen (Tylenol 325mg Tab) 325 mg PO Q4 PRN PRN Reason: Pain, Mild (1-3) Alprazolam (Xanax) 0.25 mg PO Q6 PRN; Protocol PRN Reason: Anxiety Stop: 03/02/17 12:01 Amlodipine Besylate (Norvasc) 10 mg PO DAILY [facility] Arformoterol Tartrate (Brovana) 15 mcg IH [id number] [facility] Last Admin: 02/23/17 09:24 Dose: 15 mcg Aspirin (Ecotrin) 81 mg PO DAILY [facility] Budesonide (Pulmicort Respules) 0.5 mg IH [id number] [facility] Last Admin: 02/23/17 09:25 Dose: 0.5 mg Metronidazole (Flagyl) 500 mg in 100 mls @ 100 mls/hr IVPB Q8 [facility] PRN Reason: Protocol Ceftriaxone Sodium (Rocephin 1 Gram Ivpb) 1 gm in 100 mls @ 100 mls/hr IVPB DAILY [facility] PRN Reason: Protocol Levothyroxine Sodium (Synthroid) 150 mcg PO DAILY [facility] Montelukast Sodium (Singulair) 10 mg PO DAILY [facility] Morphine Sulfate (Morphine) 4 mg IVP Q4 PRN PRN Reason: Pain, moderate (4-7) Modafinil [Provigil] (200 Mg (Home Med)) 200 mg PO DAILY [facility] Tiotropium [place] (Spiriva) 18 mcg IH DAILY [facility] Physical Exam - Constitutional Appears: Non-toxic - Head Exam Head Exam: NORMAL INSPECTION - ENT Exam ENT Exam: Mucous Membranes Moist - Neck Exam Neck exam: Negative for: Lymphadenopathy, Meningismus - Respiratory Exam Respiratory Exam: Decreased Breath Sounds. absent: Rales - Cardiovascular Exam Cardiovascular Exam: +S1, +S2 - GI/Abdominal Exam GI & Abdominal Exam: Soft. absent: Tenderness Results - Vital Signs Recent Vital Signs: Last Vital Signs Temp 97.4 F L 02/22/17 23:31 Pulse 72 02/23/17 06:23 Resp 18 02/23/17 06:23 BP 160/92 H 02/23/17 06:23 Pulse Ox 94 L 02/23/17 06:23 - Labs Result Diagrams: 02/23/17 01:40 02/23/17 01:40 Assessment & Plan - Assessment and Plan (Free Text) Plan: Assessment Sepsis due to left sided colitis diverticulitis COPD spinal stenosis macular degeneration sleep apnea HTN obesity with BMI 34 Plan Patient has been started on Rocephin and Flagyl and will continue this pending blood cx and stool cx if patient has diarrhea follow up further GI recommendations will monitor clinically
[2017-02-23] MEDS: Morphine 4 mg/ml ISec IVP PRN ×2 (12:55→19:33)
--- NOTE | 2017-02-23 16:52 | CARD ---
APPROVED REPORT EKG Measurement Heart [id number] <Conclusion> Normal sinus rhythm Possible Left atrial enlargement Borderline ECG
[2017-02-23 19:09] VITALS: BMI 34.0
[2017-02-23] MEDS ORDERED: Pneumococcal 23-Valent Vaccine IM ONE (19:09)
[2017-02-23] MEDS ORDERED: Influenza Vaccine 60 mcg/0.5 mL SYR (4YR UP) IM ONE (19:09)
--- NOTE | 2017-02-24 02:06 | CON ---
DATE: 02/23/2017 HISTORY OF PRESENT ILLNESS: This patient was seen and evaluated earlier today. In the Emergency Room, this 81-year-old patient with past medical history of gastroesophageal reflux disease, history of esophageal ulceration, gastritis, duodenitis. Has complaining of some acute onset of abdominal pain on the left side of the abdomen and suprapubic area four to five days. Progressively, it was like she was constipated, has some dull discomfort, progressively got worse, came to the Emergency Room. She was also complaining of nausea. The patient admitted with diverticulitis, it is improved with antibiotics. The patient has history of COPD, pulmonary hypertension. The patient had knee replacement, which was deferred in view of the high-risk status due to severe pulmonary hypertension. The patient has been complaining of pain more on the left lower quadrant, suprapubic area. PAST MEDICAL HISTORY: Other past medical history significant as above, spinal stenosis, macular degeneration, COPD, obstructive sleep apnea, and hypertension. ALLERGIES: SHE IS ALLERGIC TO LATEX, MOXIFLOXACIN, OXYCODONE. PAST SURGICAL HISTORY: As above. SOCIAL HISTORY: She is an ex-smoker, quit about 15 year ago. Denies alcohol use. REVIEW OF SYSTEMS: Positive as above. Other systems reviewed. PHYSICAL EXAMINATION: GENERAL: On examination, the patient is lying on the bed, not in acute distress. VITAL SIGNS: Temperature is 98.3, pulse is 75, blood pressure is 117/73, respirations 20. HEENT: Atraumatic and icteric. NECK: Supple. HEART: S1 and S2 heard. LUNGS: Bilateral air entry present. ABDOMEN: Soft. There is tenderness in the left lower quadrant, also suprapubic area. No rebound or guarding. EXTREMITIES: No cyanosis. No clubbing. NEUROLOGIC: Alert, oriented, moves all the extremities. LABORATORY DATA: WBC count 14.5, hemoglobin 15.6, hematocrit 47.7, platelets 287. Chemistries; calcium 10.7, glucose 127, creatinine is normal. The CT scan of the abdomen and pelvis was done, which was reviewed suggestive of diverticulitis, left colon. CAT scan also shows mildly enlarged periportal lymph node measuring about 2 x 1.3 cm. IMPRESSION: This 81-year-old patient admitted with acute onset of suprapubic and left lower quadrant pain. Check CAT scan most suggestive of diverticulitis. The patient also has large amount of stool present. We would recommend at this point. Her other comorbidities include chronic obstructive pulmonary disease, severe pulmonary hypertension, obesity, obstructive sleep apnea. RECOMMENDATIONS: I would recommend; 1. Start the patient on clear liquid diet and start the antibiotics Ceftriaxone 1 g daily and also Flagyl 500 mg q. 8 hourly. 2. Clear liquid diet. 3. Continue to closely follow up her care to suggest further management based on the clinical course. Deanna Vidales MD [facility]
[2017-02-24] MEDS: metroNIDAZOLE IV 500 mg/100 ml 500 MG/100 ML BAG IVPB SCH ×3 (06:18→21:39)
[2017-02-24 07:39] VITALS: RESP 20
[2017-02-24] MEDS: Arformoterol 15 mcg/2 ml Inh Sol IH SCH ×2 (08:16→19:49)
[2017-02-24] MEDS: Budesonide 0.5 mg/2 ml Inhal Susp UD IH SCH ×2 (08:16→19:49)
[2017-02-24] MEDS: Morphine 4 mg/ml ISec IVP PRN (09:18)
[2017-02-24] MEDS: Levothyroxine 150 MCG TAB PO SCH (10:11)
[2017-02-24] MEDS: cefTRIAXone 1 gm 1 GM/100 ML BAG IVPB SCH (10:11)
[2017-02-24] MEDS: Tiotropium 18 mcg Cap For Inhalation IH SCH (10:11)
[2017-02-24] MEDS: MODAFINIL 200 MG PO SCH (10:11)
[2017-02-24] MEDS ORDERED: POLYETHYLENE GLYCOL 3350 17 GM/Dose PACKET PO ONE ×2 (12:07→23:44)
--- NOTE | 2017-02-24 13:06 | CP.PCM.PN ---
<Elba Al - Last Filed: 02/24/17 13:05> Subjective - Date & Time of Evaluation Date of Evaluation: 02/24/17 Time of Evaluation: 10:40 - Subjective Subjective: Seen and examined at the bedside earlier today, chart reviewed. Patient reports soreness in the left lower quadrant, no pain but complains of constipation. Reports she was given a laxative in the ER and had a small amount of stool no reports of any melena or bright red blood per rectum. Tolerating the clear liquid diet but not found of apple juice. Denies shortness of breath chest pain, fever or chills nausea or vomiting. Objective - Vital Signs/Intake and Output Vital Signs (last 24 hours): Temp Pulse Resp BP Pulse Ox 98.7 F 73 20 138/68 93 L 02/24/17 07:30 02/24/17 07:30 02/24/17 07:30 02/24/17 10:12 02/24/17 07:30 Intake and Output: 02/24/17 02/24/17 06:59 18:59 Intake Total 600 Balance 600 - Medications Medications: Current Medications Acetaminophen (Tylenol 325mg Tab) 650 mg PO Q4H PRN PRN Reason: Pain, moderate (4-7) Alprazolam (Xanax) 0.25 mg PO Q6 PRN; Protocol PRN Reason: Anxiety Stop: 03/02/17 12:01 Amlodipine Besylate (Norvasc) 10 mg PO DAILY [facility] Last Admin: 02/24/17 10:12 Dose: 10 mg Arformoterol Tartrate (Brovana) 15 mcg IH [id number] [facility] Last Admin: 02/24/17 08:16 Dose: Not Given Aspirin (Ecotrin) 81 mg PO DAILY [facility] Last Admin: 02/24/17 10:11 Dose: 81 mg Budesonide (Pulmicort Respules) 0.5 mg IH [id number] [facility] Last Admin: 02/24/17 08:16 Dose: Not Given Metronidazole (Flagyl) 500 mg in 100 mls @ 100 mls/hr IVPB Q8 [facility] PRN Reason: Protocol Last Admin: 02/24/17 06:18 Dose: 100 mls/hr Ceftriaxone Sodium (Rocephin 1 Gram Ivpb) 1 gm in 100 mls @ 100 mls/hr IVPB DAILY [facility] PRN Reason: Protocol Last Admin: 02/24/17 10:11 Dose: 100 mls/hr Levothyroxine Sodium (Synthroid) 150 mcg PO DAILY [facility] Last Admin: 02/24/17 10:11 Dose: 150 mcg Montelukast Sodium (Singulair) 10 mg PO DAILY [facility] Last Admin: 02/24/17 10:11 Dose: 10 mg Morphine Sulfate (Morphine) 4 mg IVP Q4 PRN PRN Reason: Pain, moderate (4-7) Last Admin: 02/24/17 09:18 Dose: 4 mg Modafinil [Provigil] (200 Mg (Home Med)) 200 mg PO DAILY [facility] Last Admin: 02/24/17 10:11 Dose: Not Given Ondansetron HCl (Zofran Inj) 4 mg IVP Q6 PRN PRN Reason: Nausea/Vomiting Last Admin: 02/24/17 09:17 Dose: 4 mg Tiotropium [place] (Spiriva) 18 mcg IH DAILY [facility] Last Admin: 02/24/17 10:11 Dose: 18 mcg - Labs Labs: PT 10.9 SECONDS (9.4-12.5) 02/23/17 01:40 INR 0.96 (0.93-1.08) 02/23/17 01:40 - Constitutional Appears: No Acute Distress - Eye Exam Eye Exam: Scleral icterus. absent: Normal appearance - ENT Exam ENT Exam: Mucous Membranes Moist - Neck Exam Neck Exam: Normal Inspection - Respiratory Exam Respiratory Exam: NORMAL BREATHING PATTERN. absent: Respiratory Distress - Cardiovascular Exam Cardiovascular Exam: +S1, +S2 - GI/Abdominal Exam GI & Abdominal Exam: Distended, Soft, Tenderness (mild tenderness to left lower quadrant), Normal Bowel Sounds. absent: Guarding, Organomegaly, Rebound - Extremities Exam Extremities Exam: absent: Calf Tenderness - Neurological Exam Neurological Exam: Alert, Awake, Oriented x3 Assessment and Plan - Assessment and Plan (Free Text) Assessment: Assessment: Acute onset of left lower quadrant abdominal pain, CT scan suggestive of diverticulitis Constipation COPD History of pulmonary hypertension Obesity Obstructive sleep apnea Plan: Continue clear liquid diet Continue IV antibiotics ceftriaxone/Flagyl Give dose of MiraLAX start GI prophylaxis Seen and discussed w/ Dr. Vidales. <Deanna Vidales V - Last Filed: 02/24/17 20:25> Objective - Vital Signs/Intake and Output Vital Signs (last 24 hours): Temp Pulse Resp BP Pulse Ox 98.6 F 90 20 148/81 90 L 02/24/17 16:00 02/24/17 19:50 02/24/17 16:00 02/24/17 16:00 02/24/17 16:00 Intake and Output: 02/24/17 02/25/17 18:59 06:59 Intake Total 480 Balance 480 - Medications Medications: Current Medications Acetaminophen (Tylenol 325mg Tab) 650 mg PO Q4H PRN PRN Reason: Pain, moderate (4-7) Alprazolam (Xanax) 0.25 mg PO Q6 PRN; Protocol PRN Reason: Anxiety Stop: 03/02/17 12:01 Amlodipine Besylate (Norvasc) 10 mg PO DAILY [facility] Last Admin: 02/24/17 10:12 Dose: 10 mg Arformoterol Tartrate (Brovana) 15 mcg IH [id number] [facility] Last Admin: 02/24/17 19:49 Dose: 15 mcg Aspirin (Ecotrin) 81 mg PO DAILY [facility] Last Admin: 02/24/17 10:11 Dose: 81 mg Budesonide (Pulmicort Respules) 0.5 mg IH [id number] [facility] Last Admin: 02/24/17 19:49 Dose: 0.5 mg Metronidazole (Flagyl) 500 mg in 100 mls @ 100 mls/hr IVPB Q8 [facility] PRN Reason: Protocol Last Admin: 02/24/17 13:28 Dose: 100 mls/hr Ceftriaxone Sodium (Rocephin 1 Gram Ivpb) 1 gm in 100 mls @ 100 mls/hr IVPB DAILY [facility] PRN Reason: Protocol Last Admin: 02/24/17 10:11 Dose: 100 mls/hr Levothyroxine Sodium (Synthroid) 150 mcg PO DAILY [facility] Last Admin: 02/24/17 10:11 Dose: 150 mcg Montelukast Sodium (Singulair) 10 mg PO DAILY [facility] Last Admin: 02/24/17 10:11 Dose: 10 mg Morphine Sulfate (Morphine) 4 mg IVP Q4 PRN PRN Reason: Pain, moderate (4-7) Last Admin: 02/24/17 09:18 Dose: 4 mg Modafinil [Provigil] (200 Mg (Home Med)) 200 mg PO DAILY [facility] Last Admin: 02/24/17 10:11 Dose: Not Given Ondansetron HCl (Zofran Inj) 4 mg IVP Q6 PRN PRN Reason: Nausea/Vomiting Last Admin: 02/24/17 09:17 Dose: 4 mg Pantoprazole Sodium (Protonix Inj) 40 mg IVP DAILY [facility] Last Admin: 02/24/17 13:29 Dose: 40 mg Tiotropium [place] (Spiriva) 18 mcg IH DAILY [facility] Last Admin: 02/24/17 10:11 Dose: 18 mcg - Labs Labs: PT 10.9 SECONDS (9.4-12.5) 02/23/17 01:40 INR 0.96 (0.93-1.08) 02/23/17 01:40 Attending/Attestation - Attestation I have personally seen and examined this patient.: Yes I have fully participated in the care of the patient.: Yes I have reviewed all pertinent clinical information, including history, physical exam and plan: Yes Notes (Text): This is an addendum to GI progress report dictated by Elba Al APN.The patient was seen and examined earlier. Medical records, lab studies, imagings were reviewed. Last 24 hours events reviewed. Agreed with the above treatment plan as outlined in Elba Al APN's notes the with the addition of the following Better still complains of constipation On examination abdomen soft mild tenderness on deep palpation left lower quadrant explain continue antibiotics as per ID Elective colonoscopy as an outpatient Continue MiraLAX 02/24/17 20:24
--- NOTE | 2017-02-24 15:13 | CP.PCM.PN ---
Subjective - Date & Time of Evaluation Date of Evaluation: 02/24/17 Time of Evaluation: 10:45 - Subjective Subjective: Comfortable in bed, no fevers overnight, not in distress, less abdominal pain, no nausea, no vomiting. Objective - Vital Signs/Intake and Output Vital Signs (last 24 hours): Temp Pulse Resp BP Pulse Ox 98.7 F 73 20 138/68 93 L 02/24/17 07:30 02/24/17 07:30 02/24/17 07:30 02/24/17 10:12 02/24/17 07:30 Intake and Output: 02/24/17 02/24/17 06:59 18:59 Intake Total 600 Balance 600 - Medications Medications: Current Medications Acetaminophen (Tylenol 325mg Tab) 325 mg PO Q4 PRN PRN Reason: Pain, Mild (1-3) Last Admin: 02/24/17 08:56 Dose: 325 mg Alprazolam (Xanax) 0.25 mg PO Q6 PRN; Protocol PRN Reason: Anxiety Stop: 03/02/17 12:01 Amlodipine Besylate (Norvasc) 10 mg PO DAILY [facility] Last Admin: 02/24/17 10:12 Dose: 10 mg Arformoterol Tartrate (Brovana) 15 mcg IH [id number] [facility] Last Admin: 02/24/17 08:16 Dose: Not Given Aspirin (Ecotrin) 81 mg PO DAILY [facility] Last Admin: 02/24/17 10:11 Dose: 81 mg Budesonide (Pulmicort Respules) 0.5 mg IH [id number] [facility] Last Admin: 02/24/17 08:16 Dose: Not Given Metronidazole (Flagyl) 500 mg in 100 mls @ 100 mls/hr IVPB Q8 [facility] PRN Reason: Protocol Last Admin: 02/24/17 06:18 Dose: 100 mls/hr Ceftriaxone Sodium (Rocephin 1 Gram Ivpb) 1 gm in 100 mls @ 100 mls/hr IVPB DAILY [facility] PRN Reason: Protocol Last Admin: 02/24/17 10:11 Dose: 100 mls/hr Levothyroxine Sodium (Synthroid) 150 mcg PO DAILY [facility] Last Admin: 02/24/17 10:11 Dose: 150 mcg Montelukast Sodium (Singulair) 10 mg PO DAILY [facility] Last Admin: 02/24/17 10:11 Dose: 10 mg Morphine Sulfate (Morphine) 4 mg IVP Q4 PRN PRN Reason: Pain, moderate (4-7) Last Admin: 02/24/17 09:18 Dose: 4 mg Modafinil [Provigil] (200 Mg (Home Med)) 200 mg PO DAILY [facility] Last Admin: 02/24/17 10:11 Dose: Not Given Ondansetron HCl (Zofran Inj) 4 mg IVP Q6 PRN PRN Reason: Nausea/Vomiting Last Admin: 02/24/17 09:17 Dose: 4 mg Tiotropium [place] (Spiriva) 18 mcg IH DAILY [facility] Last Admin: 02/24/17 10:11 Dose: 18 mcg - Labs Labs: PT 10.9 SECONDS (9.4-12.5) 02/23/17 01:40 INR 0.96 (0.93-1.08) 02/23/17 01:40 - Constitutional Appears: Non-toxic - Head Exam Head Exam: NORMAL INSPECTION - Respiratory Exam Respiratory Exam: Decreased Breath Sounds - Cardiovascular Exam Cardiovascular Exam: +S1, +S2 - GI/Abdominal Exam GI & Abdominal Exam: Soft, Tenderness (mild, LLQ, no rebound tenderness, no rigidity) Assessment and Plan - Assessment and Plan (Free Text) Assessment: Assessment Sepsis due to left sided colitis diverticulitis COPD spinal stenosis macular degeneration sleep apnea HTN obesity with BMI 34 Plan continue Rocephin and Flagyl day 2;blood cx are negative; stool cx if patient has diarrhea follow up further GI recommendations will continue to monitor clinically
--- NOTE | 2017-02-24 22:09 | PN ---
DATE: 02/24/2017 SUBJECTIVE: The patient has no complaints of any chest pain. No shortness of breath, headache, or dizziness. PHYSICAL EXAMINATION: VITAL SIGNS: Temperature is 98.6, pulse of 90, blood pressure 148/81, and respirations 20. GENERAL: The patient is lying in bed, flat, comfortable. HEENT: No oral lesion. Anicteric sclerae. Moist mucosa. NECK: No JVD, adenopathy, or thyromegaly. CARDIOVASCULAR: S1 and S2, regular. No murmurs, rubs, or gallops. LUNGS: Clear to auscultation bilaterally. No wheeze, rales, or rhonchi. ABDOMEN: Bowel sounds are positive, soft, nontender and nondistended. EXTREMITIES: No cyanosis, clubbing or edema. LABORATORY DATA: White count of 14.5, hemoglobin 15.6, and creatinine 0.6. ASSESSMENT: 1. Colitis. 2. Asthma. 3. Hypertension. 4. Hypothyroidism. 5. Hypokalemia. PLAN: The patient is currently comfortable. She is on aspirin. She is going to continue with her Flagyl for colitis. She is on morphine for pain. She is also getting Tylenol daily. She is going to be on . She is on Spiriva for her breathing and COPD. She is on Synthroid for hypothyroidism. She is on a liquid diet. She is being followed by Dr. Vidales and Infectious Disease. She had a lower extremity ultrasound done and it had showed no signs of DVT, this was of the left leg. Ministerio Ramey MD
[2017-02-24] MEDS ORDERED: POLYETHYLENE GLYCOL 3350 17 GM/Dose PACKET ONE (23:59)
[2017-02-25] MEDS: Morphine 4 mg/ml ISec IVP PRN
[2017-02-25] MEDS: metroNIDAZOLE IV 500 mg/100 ml 500 MG/100 ML BAG IVPB SCH ×3 (06:46→23:22)
[2017-02-25 07:18] LABS: URINE APPEARANCE SL CLOUDY (CLEAR); URINE BILIRUBIN NEGATIVE (NEGATIVE); URINE BLOOD NEGATIVE (NEGATIVE); URINE COLOR YELLOW (YELLOW); URINE GLUCOSE (UA) NEGATIVE (NEGATIVE); URINE LEUKOCYTE ESTERASE MODERATE Leu/uL (NEGATIVE); URINE NITRATE NEGATIVE (NEGATIVE); URINE PROTEIN NEGATIVE mg/dL (<30 mg/dL); URINE UROBILINOGEN 0.2 E.U./dL (<1 E.U./dL)
[2017-02-25] MEDS: Arformoterol 15 mcg/2 ml Inh Sol IH SCH ×2 (07:23→19:24)
[2017-02-25] MEDS: Budesonide 0.5 mg/2 ml Inhal Susp UD IH SCH ×2 (07:23→19:25)
[2017-02-25 07:55] LABS: URINE BACTERIA TRACE (NEG); URINE RBC NEGATIVE /hpf (0-2)
--- NOTE | 2017-02-25 09:10 | PN ---
DATE: 02/25/2017 SUBJECTIVE: The patient states her abdominal pain is a bit better. She has not headache or dizziness. No fevers. PHYSICAL EXAMINATION: VITAL SIGNS: Temperature is 98.6, pulse of 90, blood pressure 148/81, and respirations 20. GENERAL: The patient is lying in bed, flat, comfortable. HEENT: No oral lesion. Anicteric sclerae. Moist mucosa. NECK: No JVD, adenopathy, or thyromegaly. CARDIOVASCULAR: S1 and S2, regular. No murmurs, rubs, or gallops. LUNGS: Clear to auscultation bilaterally. No wheeze, rales, or rhonchi. ABDOMEN: Bowel sounds are positive, soft, nontender and nondistended. EXTREMITIES: No cyanosis, clubbing or edema. LABORATORY DATA: White count of 14.5, hemoglobin of 15.6. ASSESSMENT: 1. Colitis. 2. Asthma. 3. Hypertension. 4. Hypothyroidism. 5. Hypokalemia. PLAN: The patient is on Brovana for her COPD. She is receiving aspirin daily. She is going to continue with morphine for pain. She is on amlodipine for her hypertension. She is on Tylenol as needed for pain. She is on Rocephin for antibiotics. The patient is receiving Singulair. She is on Spiriva for her COPD. She is on Synthroid for her hypothyroidism. She is on Zofran for nausea. She is on a liquid diet. Ministerio Ramey MD
[2017-02-25 09:50] LABS: MEAN CORPUSCULAR HEMOGLOBIN 27.3 pg (25.0-35.0); MEAN CORPUSCULAR HGB CONC 31.7 g/dl (31.0-37.0); MEAN PLATELET VOLUME 9.6 fl (7.0-11.0); RBC 4.51 10^6/uL (3.5-6.1); RED CELL DISTRIBUTION WIDTH 14.7 % (11.5-14.5); WHITE BLOOD COUNT 7.1 10^3/ul (4.5-11.0)
[2017-02-25 09:53] LABS: HEMOGLOBIN 12.3 g/dL (12.0-16.0)
[2017-02-25] MEDS: MODAFINIL 200 MG PO SCH (10:00)
[2017-02-25 10:05] LABS: ALB/GLOB RATIO 1.4 (1.1-1.8); ALBUMIN 3.7 g/dL (3.0-4.8); ALT/SGPT 26 U/L (7-56); AST/SGOT 24 U/L (14-36); BLOOD UREA NITROGEN 11 mg/dL (7-21); CALCIUM 8.8 mg/dL (8.4-10.5); GFR AFRICAN-AMERICAN > 60; GFR NON-AFRICAN AMERICAN > 60
[2017-02-25] MEDS ORDERED: Potassium Chloride 20 mEq ER Tab PO ONE ×2 (10:27→14:37)
[2017-02-25] MEDS: cefTRIAXone 1 gm 1 GM/100 ML BAG IVPB SCH (10:27)
[2017-02-25] MEDS: Levothyroxine 150 MCG TAB PO SCH (10:28)
[2017-02-25] MEDS: Tiotropium 18 mcg Cap For Inhalation IH SCH (10:29)
--- NOTE | 2017-02-25 12:07 | CP.PCM.PN ---
<Elba Al - Last Filed: 02/25/17 12:28> Subjective - Date & Time of Evaluation Date of Evaluation: 02/25/17 Time of Evaluation: 11:30 - Subjective Subjective: Seen and examined at the bedside late this morning, patient had 2 doses of MiraLAX last night, had a small bowel movement this morning but reported it hard and patient was straining. Does have some mild left sided abdominal discomfort but contributed some to the constipation, denies nausea, vomiting, fever or chills. No reports of overt GI bleed. Objective - Vital Signs/Intake and Output Vital Signs (last 24 hours): Temp Pulse Resp BP Pulse Ox 97.8 F 74 20 138/61 94 L 02/25/17 08:00 02/25/17 08:00 02/25/17 08:00 02/25/17 10:28 02/25/17 08:00 Intake and Output: 02/25/17 02/25/17 06:59 18:59 Intake Total 660 Balance 660 - Medications Medications: Current Medications Acetaminophen (Tylenol 325mg Tab) 650 mg PO Q4H PRN PRN Reason: Pain, moderate (4-7) Last Admin: 02/25/17 10:28 Dose: 650 mg Alprazolam (Xanax) 0.25 mg PO Q6 PRN; Protocol PRN Reason: Anxiety Stop: 03/02/17 12:01 Last Admin: 02/24/17 21:39 Dose: 0.25 mg Amlodipine Besylate (Norvasc) 10 mg PO DAILY [facility] Last Admin: 02/25/17 10:28 Dose: 10 mg Arformoterol Tartrate (Brovana) 15 mcg IH [id number] [facility] Last Admin: 02/25/17 07:23 Dose: Not Given Aspirin (Ecotrin) 81 mg PO DAILY [facility] Last Admin: 02/25/17 10:28 Dose: 81 mg Budesonide (Pulmicort Respules) 0.5 mg IH [id number] [facility] Last Admin: 02/25/17 07:23 Dose: Not Given Docusate Sodium (Colace) 100 mg PO DAILY [facility] Metronidazole (Flagyl) 500 mg in 100 mls @ 100 mls/hr IVPB Q8 [facility] PRN Reason: Protocol Last Admin: 02/25/17 06:46 Dose: 100 mls/hr Ceftriaxone Sodium (Rocephin 1 Gram Ivpb) 1 gm in 100 mls @ 100 mls/hr IVPB DAILY [facility] PRN Reason: Protocol Last Admin: 02/25/17 10:27 Dose: 100 mls/hr Potassium Chloride (Potassium Chloride 10 Meq/100 Ml) 10 meq in 100 mls @ 50 mls/hr IVPB Q2H [facility] Stop: 02/25/17 14:29 Last Admin: 02/25/17 11:47 Dose: 50 mls/hr Lactulose (Enulose) 10 gm PO ONCE ONE Stop: 02/25/17 12:01 Levothyroxine Sodium (Synthroid) 150 mcg PO DAILY [facility] Last Admin: 02/25/17 10:28 Dose: 150 mcg Montelukast Sodium (Singulair) 10 mg PO DAILY [facility] Last Admin: 02/25/17 10:28 Dose: 10 mg Morphine Sulfate (Morphine) 4 mg IVP Q4 PRN PRN Reason: Pain, moderate (4-7) Last Admin: 02/25/17 00:00 Dose: 4 mg Modafinil [Provigil] (200 Mg (Home Med)) 200 mg PO DAILY [facility] Last Admin: 02/24/17 10:11 Dose: Not Given Ondansetron HCl (Zofran Inj) 4 mg IVP Q6 PRN PRN Reason: Nausea/Vomiting Last Admin: 02/24/17 21:46 Dose: 4 mg Pantoprazole Sodium (Protonix Inj) 40 mg IVP DAILY [facility] Last Admin: 02/25/17 10:27 Dose: 40 mg Tiotropium [place] (Spiriva) 18 mcg IH DAILY [facility] Last Admin: 02/25/17 10:29 Dose: 18 mcg - Labs Labs: 02/25/17 09:35 02/25/17 09:35 PT 10.9 SECONDS (9.4-12.5) 02/23/17 01:40 INR 0.96 (0.93-1.08) 02/23/17 01:40 - Constitutional Appears: No Acute Distress - Eye Exam Eye Exam: Normal appearance. absent: Scleral icterus - ENT Exam ENT Exam: Mucous Membranes Moist - Respiratory Exam Respiratory Exam: NORMAL BREATHING PATTERN. absent: Respiratory Distress - Cardiovascular Exam Cardiovascular Exam: +S1, +S2 - GI/Abdominal Exam GI & Abdominal Exam: Distended, Soft, Normal Bowel Sounds. absent: Guarding, Tenderness, Organomegaly, Rebound Additional comments: round obese abdomen - Extremities Exam Extremities Exam: absent: Calf Tenderness - Neurological Exam Neurological Exam: Alert, Awake, Oriented x3 Assessment and Plan - Assessment and Plan (Free Text) Assessment: Assessment: Acute onset of left lower quadrant abdominal pain, CT scan suggestive of diverticulitis Constipation COPD Hypokalemia History of pulmonary hypertension Obesity Obstructive sleep apnea Plan: diet advance to soft low residual heart healthy, seen by dietitian Continue IV antibiotics ceftriaxone/Flagyl potassium replacements as per PMD consider another dose of Miralax Start low dose of Colace 1 tab daily continue GI prophylaxis Recommend elective outpatient colonoscopy Seen and discussed w/ Dr. Vidales. <Deanna Vidales V - Last Filed: 02/26/17 00:56> Objective - Vital Signs/Intake and Output Vital Signs (last 24 hours): Temp Pulse Resp BP Pulse Ox 98.7 F 70 20 126/60 98 02/25/17 16:00 02/25/17 16:00 02/25/17 16:00 02/25/17 16:00 02/25/17 16:00 Intake and Output: 02/25/17 02/26/17 18:59 06:59 Intake Total 300 600 Balance 300 600 - Medications Medications: Current Medications Acetaminophen (Tylenol 325mg Tab) 650 mg PO Q4H PRN PRN Reason: Pain, moderate (4-7) Last Admin: 02/25/17 10:28 Dose: 650 mg Alprazolam (Xanax) 0.25 mg PO Q6 PRN; Protocol PRN Reason: Anxiety Stop: 03/02/17 12:01 Last Admin: 02/24/17 21:39 Dose: 0.25 mg Amlodipine Besylate (Norvasc) 10 mg PO DAILY [facility] Last Admin: 02/25/17 10:28 Dose: 10 mg Arformoterol Tartrate (Brovana) 15 mcg IH [id number] [facility] Last Admin: 02/25/17 19:24 Dose: Not Given Aspirin (Ecotrin) 81 mg PO DAILY [facility] Last Admin: 02/25/17 10:28 Dose: 81 mg Budesonide (Pulmicort Respules) 0.5 mg IH [id number] [facility] Last Admin: 02/25/17 19:25 Dose: Not Given Docusate Sodium (Colace) 100 mg PO DAILY [facility] Metronidazole (Flagyl) 500 mg in 100 mls @ 100 mls/hr IVPB Q8 [facility] PRN Reason: Protocol Last Admin: 02/25/17 23:22 Dose: 100 mls/hr Ceftriaxone Sodium (Rocephin 1 Gram Ivpb) 1 gm in 100 mls @ 100 mls/hr IVPB DAILY [facility] PRN Reason: Protocol Last Admin: 02/25/17 10:27 Dose: 100 mls/hr Levothyroxine Sodium (Synthroid) 150 mcg PO DAILY [facility] Last Admin: 02/25/17 10:28 Dose: 150 mcg Montelukast Sodium (Singulair) 10 mg PO DAILY [facility] Last Admin: 02/25/17 10:28 Dose: 10 mg Morphine Sulfate (Morphine) 4 mg IVP Q4 PRN PRN Reason: Pain, moderate (4-7) Last Admin: 02/25/17 00:00 Dose: 4 mg Modafinil [Provigil] (200 Mg (Home Med)) 200 mg PO DAILY [facility] Last Admin: 02/25/17 10:00 Dose: Not Given Ondansetron HCl (Zofran Inj) 4 mg IVP Q6 PRN PRN Reason: Nausea/Vomiting Last Admin: 02/24/17 21:46 Dose: 4 mg Pantoprazole Sodium (Protonix Ec Tab) 40 mg PO ACB [facility] Tiotropium [place] (Spiriva) 18 mcg IH DAILY [facility] Last Admin: 02/25/17 10:29 Dose: 18 mcg - Labs Labs: 02/25/17 09:35 02/25/17 16:30 PT 10.9 SECONDS (9.4-12.5) 02/23/17 01:40 INR 0.96 (0.93-1.08) 02/23/17 01:40 Attending/Attestation - Attestation I have personally seen and examined this patient.: Yes I have fully participated in the care of the patient.: Yes I have reviewed all pertinent clinical information, including history, physical exam and plan: Yes Notes (Text): This is an addendum to GI progress report dictated by Elba Al APN.The patient was seen and examined earlier. Medical records, lab studies, imagings were reviewed. Last 24 hours events reviewed. Agreed with the above treatment plan as outlined in Elba Al APN's notes the with the addition of the following On MiraLAX for chronic constipation Patient may benefit from outpatient therapy with Linzess or amitiza chronic constipation Patient has siignificant pulmonary hypertension Advised the patient to discuss with the PCP and if cleared then she was advised to coordinate with our office to have the colonoscopy scheduled as an outpatient patient's son was at bedside who've also fully understood 02/26/17 00:54
--- NOTE | 2017-02-25 17:02 | CP.PCM.PN ---
Subjective - Date & Time of Evaluation Date of Evaluation: 02/25/17 Time of Evaluation: 11:35 - Subjective Subjective: Feeling a little better, less pain in the left side of her abdomen, no fevers overnight. Objective - Vital Signs/Intake and Output Vital Signs (last 24 hours): Temp Pulse Resp BP Pulse Ox 97.8 F 74 20 138/61 94 L 02/25/17 08:00 02/25/17 08:00 02/25/17 08:00 02/25/17 08:00 02/25/17 08:00 Intake and Output: 02/25/17 02/25/17 06:59 18:59 Intake Total 660 Balance 660 - Medications Medications: Current Medications Acetaminophen (Tylenol 325mg Tab) 650 mg PO Q4H PRN PRN Reason: Pain, moderate (4-7) Alprazolam (Xanax) 0.25 mg PO Q6 PRN; Protocol PRN Reason: Anxiety Stop: 03/02/17 12:01 Last Admin: 02/24/17 21:39 Dose: 0.25 mg Amlodipine Besylate (Norvasc) 10 mg PO DAILY [facility] Last Admin: 02/24/17 10:12 Dose: 10 mg Arformoterol Tartrate (Brovana) 15 mcg IH [id number] [facility] Last Admin: 02/25/17 07:23 Dose: Not Given Aspirin (Ecotrin) 81 mg PO DAILY [facility] Last Admin: 02/24/17 10:11 Dose: 81 mg Budesonide (Pulmicort Respules) 0.5 mg IH [id number] [facility] Last Admin: 02/25/17 07:23 Dose: Not Given Metronidazole (Flagyl) 500 mg in 100 mls @ 100 mls/hr IVPB Q8 [facility] PRN Reason: Protocol Last Admin: 02/25/17 06:46 Dose: 100 mls/hr Ceftriaxone Sodium (Rocephin 1 Gram Ivpb) 1 gm in 100 mls @ 100 mls/hr IVPB DAILY [facility] PRN Reason: Protocol Last Admin: 02/24/17 10:11 Dose: 100 mls/hr Levothyroxine Sodium (Synthroid) 150 mcg PO DAILY [facility] Last Admin: 02/24/17 10:11 Dose: 150 mcg Montelukast Sodium (Singulair) 10 mg PO DAILY [facility] Last Admin: 02/24/17 10:11 Dose: 10 mg Morphine Sulfate (Morphine) 4 mg IVP Q4 PRN PRN Reason: Pain, moderate (4-7) Last Admin: 02/25/17 00:00 Dose: 4 mg Modafinil [Provigil] (200 Mg (Home Med)) 200 mg PO DAILY [facility] Last Admin: 02/24/17 10:11 Dose: Not Given Ondansetron HCl (Zofran Inj) 4 mg IVP Q6 PRN PRN Reason: Nausea/Vomiting Last Admin: 02/24/17 21:46 Dose: 4 mg Pantoprazole Sodium (Protonix Inj) 40 mg IVP DAILY [facility] Last Admin: 02/24/17 13:29 Dose: 40 mg Tiotropium [place] (Spiriva) 18 mcg IH DAILY [facility] Last Admin: 02/24/17 10:11 Dose: 18 mcg - Labs Labs: 02/25/17 09:35 02/25/17 09:35 PT 10.9 SECONDS (9.4-12.5) 02/23/17 01:40 INR 0.96 (0.93-1.08) 02/23/17 01:40 - Constitutional Appears: Non-toxic - Head Exam Head Exam: NORMAL INSPECTION - ENT Exam ENT Exam: Mucous Membranes Moist - Neck Exam Neck Exam: absent: Meningismus - Respiratory Exam Respiratory Exam: Decreased Breath Sounds - Cardiovascular Exam Cardiovascular Exam: +S1, +S2 - GI/Abdominal Exam GI & Abdominal Exam: Soft. absent: Tenderness Assessment and Plan - Assessment and Plan (Free Text) Plan: Assessment Sepsis due to left sided colitis diverticulitis COPD spinal stenosis macular degeneration sleep apnea HTN obesity with BMI 34 Plan continue Rocephin and Flagyl day 3;blood cx are negative; stool cx if patient has diarrhea follow up further GI recommendations will continue to monitor clinically
[2017-02-25 17:13] LABS: BLOOD UREA NITROGEN 13 mg/dL (7-21); CALCIUM 9.2 mg/dL (8.4-10.5); GFR AFRICAN-AMERICAN > 60; GFR NON-AFRICAN AMERICAN > 60
[2017-02-25] MEDS ORDERED: POLYETHYLENE GLYCOL 3350 17 GM/Dose PACKET PO ONE (23:20)
[2017-02-26] MEDS: metroNIDAZOLE IV 500 mg/100 ml 500 MG/100 ML BAG IVPB SCH (06:30)
[2017-02-26 07:09] LABS: HEMOGLOBIN 12.2 g/dL (12.0-16.0); MEAN CORPUSCULAR HEMOGLOBIN 26.8 pg (25.0-35.0); MEAN CORPUSCULAR HGB CONC 31.1 g/dl (31.0-37.0); MEAN PLATELET VOLUME 9.8 fl (7.0-11.0); RBC 4.56 10^6/uL (3.5-6.1); RED CELL DISTRIBUTION WIDTH 14.9 % (11.5-14.5); WHITE BLOOD COUNT 5.9 10^3/ul (4.5-11.0)
[2017-02-26 07:20] LABS: ALB/GLOB RATIO 1.3 (1.1-1.8); ALBUMIN 3.6 g/dL (3.0-4.8); ALT/SGPT 28 U/L (7-56); AST/SGOT 35 U/L (14-36); BLOOD UREA NITROGEN 12 mg/dL (7-21); CALCIUM 8.8 mg/dL (8.4-10.5); GFR AFRICAN-AMERICAN > 60; GFR NON-AFRICAN AMERICAN > 60
[2017-02-26] MEDS: Arformoterol 15 mcg/2 ml Inh Sol IH SCH (07:29)
[2017-02-26] MEDS: Budesonide 0.5 mg/2 ml Inhal Susp UD IH SCH (07:30)
[2017-02-26] MEDS ORDERED: Pantoprazole 40 mg EC Tab PO SCH (07:30)
[2017-02-26 08:49] VITALS: PULSE 73; TEMP 98; O2SAT 96
[2017-02-26] MEDS: Tiotropium 18 mcg Cap For Inhalation IH SCH (09:09)
[2017-02-26] MEDS: Morphine 4 mg/ml ISec IVP PRN (09:10)
[2017-02-26 09:13] VITALS: BP 126/60
--- NOTE | 2017-02-26 10:12 | CP.PCM.PN ---
<SherriRukhsana - Last Filed: 02/26/17 10:08> Subjective - Date & Time of Evaluation Date of Evaluation: 02/26/17 Time of Evaluation: 10:08 - Subjective Subjective: PGY-[address] Ramey Pt states that she had small amount of liquidy stool sipping out. She had hemorroid issue so she didn't want to strain. Pt deSat to 87% while walking with PT. Objective - Vital Signs/Intake and Output Vital Signs (last 24 hours): Temp Pulse Resp BP Pulse Ox 98.0 F 73 20 126/60 96 02/26/17 07:30 02/26/17 07:30 02/26/17 07:30 02/26/17 09:10 02/26/17 07:30 Intake and Output: 02/26/17 02/26/17 06:59 18:59 Intake Total 780 Balance 780 - Medications Medications: Current Medications Acetaminophen (Tylenol 325mg Tab) 650 mg PO Q4H PRN PRN Reason: Pain, moderate (4-7) Last Admin: 02/25/17 10:28 Dose: 650 mg Alprazolam (Xanax) 0.25 mg PO Q6 PRN; Protocol PRN Reason: Anxiety Stop: 03/02/17 12:01 Last Admin: 02/24/17 21:39 Dose: 0.25 mg Amlodipine Besylate (Norvasc) 10 mg PO DAILY [facility] Last Admin: 02/26/17 09:10 Dose: 10 mg Arformoterol Tartrate (Brovana) 15 mcg IH [id number] [facility] Last Admin: 02/26/17 07:29 Dose: 15 mcg Aspirin (Ecotrin) 81 mg PO DAILY [facility] Last Admin: 02/26/17 09:09 Dose: 81 mg Budesonide (Pulmicort Respules) 0.5 mg IH [id number] [facility] Last Admin: 02/26/17 07:30 Dose: 0.5 mg Docusate Sodium (Colace) 100 mg PO DAILY [facility] Last Admin: 02/26/17 09:09 Dose: 100 mg Metronidazole (Flagyl) 500 mg in 100 mls @ 100 mls/hr IVPB Q8 [facility] PRN Reason: Protocol Last Admin: 02/26/17 06:30 Dose: 100 mls/hr Ceftriaxone Sodium (Rocephin 1 Gram Ivpb) 1 gm in 100 mls @ 100 mls/hr IVPB DAILY [facility] PRN Reason: Protocol Last Admin: 02/25/17 10:27 Dose: 100 mls/hr Levothyroxine Sodium (Synthroid) 150 mcg PO DAILY [facility] Last Admin: 02/25/17 10:28 Dose: 150 mcg Montelukast Sodium (Singulair) 10 mg PO DAILY [facility] Last Admin: 02/26/17 09:09 Dose: 10 mg Morphine Sulfate (Morphine) 4 mg IVP Q4 PRN PRN Reason: Pain, moderate (4-7) Last Admin: 02/26/17 09:10 Dose: 4 mg Modafinil [Provigil] (200 Mg (Home Med)) 200 mg PO DAILY [facility] Last Admin: 02/25/17 10:00 Dose: Not Given Ondansetron HCl (Zofran Inj) 4 mg IVP Q6 PRN PRN Reason: Nausea/Vomiting Last Admin: 02/24/17 21:46 Dose: 4 mg Pantoprazole Sodium (Protonix Ec Tab) 40 mg PO ACB [facility] Last Admin: 02/26/17 09:09 Dose: 40 mg Tiotropium [place] (Spiriva) 18 mcg IH DAILY [facility] Last Admin: 02/26/17 09:09 Dose: 18 mcg - Labs Labs: 02/26/17 06:40 02/26/17 06:40 PT 10.9 SECONDS (9.4-12.5) 02/23/17 01:40 INR 0.96 (0.93-1.08) 02/23/17 01:40 - Constitutional Appears: No Acute Distress - Head Exam Head Exam: ATRAUMATIC, NORMAL INSPECTION, NORMOCEPHALIC - Eye Exam Eye Exam: EOMI, Normal appearance, PERRL Pupil Exam: NORMAL ACCOMODATION - ENT Exam ENT Exam: Mucous Membranes Moist - Neck Exam Additional comments: supple - Respiratory Exam Respiratory Exam: Decreased Breath Sounds (all lung he;). absent: Rales, Rhonchi, Wheezes Additional comments: on NC - Cardiovascular Exam Cardiovascular Exam: REGULAR RHYTHM, +S1, +S2 - GI/Abdominal Exam GI & Abdominal Exam: Distended, Soft, Tenderness (RLQ, LLQ, upon deep palpation. ), Normal Bowel Sounds. absent: Rigid - Extremities Exam Extremities Exam: absent: Calf Tenderness - Neurological Exam Neurological Exam: Alert, Awake, Oriented x3 - Psychiatric Exam Psychiatric exam: Normal Affect, Normal Mood - Skin Skin Exam: Dry, Warm Assessment and Plan - Assessment and Plan (Free Text) Plan: Ms Vickers [id number] presented with SOB and left and suprapubic abdominal pain with nausea and constipation. CT scan suggestive of diverticulitis and constipation. S: L pain improves. BM 2 days ago s/p miralax bid. Today, liquid stool sipped out. A: 1. Constipation with overflow diarrhea 2. Sepsis due to L sided colitis 3. Diverticulitis 4. Asthma, COPD, emphysema. Hx severe pulm hypertension 5. HTN 6. Hypothyroidism 7. Hx diverticulitis; Hx GERD, esophageal ulcer, gastritis, duodenitis 8. Spinal stenosis 9. Allergy to latex, moxifloxacin, oxycodone P. Flagyl and rocephin day 4. Blood culture negative. C. diff toxin nega. If diarrhea, will get stool Cx. Colace 100 QD. Miralax PRN per GI. Amlodipine Spiriva, singulair, pulmicort, brovana Continue provigil Continue synthroid Xanax as needed Morphine PRN Protonix for GERD Consult: Flash Correa s/r/d/w Dr. Ramey <Ministerio Ramey S - Last Filed: 02/27/17 00:25> Objective - Vital Signs/Intake and Output Vital Signs (last 24 hours): Temp Pulse Resp BP Pulse Ox 98.0 F 73 20 126/60 96 02/26/17 07:30 02/26/17 07:30 02/26/17 07:30 02/26/17 09:10 02/26/17 07:30 - Labs Labs: 02/26/17 06:40 02/26/17 06:40 PT 10.9 SECONDS (9.4-12.5) 02/23/17 01:40 INR 0.96 (0.93-1.08) 02/23/17 01:40 Assessment and Plan - Assessment and Plan (Free Text) Plan: Pt seen by me and above note reviewed. Pt seen and examined. Labs and vitals reviewed.Agree with above note. Pt to be discharged. Abd pain improved.
[2017-02-26] MEDS: cefTRIAXone 1 gm 1 GM/100 ML BAG IVPB SCH (11:14)
[2017-02-26] MEDS: Levothyroxine 150 MCG TAB PO SCH (11:14)
--- NOTE | 2017-02-26 12:20 | CP.PCM.DIS ---
<SherriRukhsana - Last Filed: 02/26/17 12:15> Provider - Provider Date of Admission: 02/23/17 05:52 Attending physician: Ministerio Ramey MD Primary care physician: Dr Ramey Consults: Consult: Flash Correa Time Spent in preparation of Discharge (in minutes): 40 Hospital Course - Lab Results Lab Results: Micro Results 02/24/17 07:00 Blood-Venous Blood Culture - Preliminary NO GROWTH AFTER 48 HOURS 02/24/17 06:45 Blood-Venous Blood Culture - Preliminary NO GROWTH AFTER 48 HOURS 02/24/17 13:00 Stool C. difficile Antigen & Toxin A,B (M - Final Most Recent Lab Values WBC 5.9 10^3/ul (4.5-11.0) 02/26/17 06:40 RBC 4.56 10^6/uL (3.5-6.1) 02/26/17 06:40 Hgb 12.2 g/dL (12.0-16.0) 02/26/17 06:40 Hct 39.2 % (36.0-48.0) 02/26/17 06:40 MCV 86.0 fl (80.0-105.0) 02/26/17 06:40 MCH 26.8 pg (25.0-35.0) 02/26/17 06:40 MCHC 31.1 g/dl (31.0-37.0) 02/26/17 06:40 RDW 14.9 % (11.5-14.5) H 02/26/17 06:40 Plt Count 239 10^3/uL (120.0-450.0) 02/26/17 06:40 MPV 9.8 fl (7.0-11.0) 02/26/17 06:40 Gran % 80.1 % (50.0-68.0) H 02/23/17 01:40 Lymph % (Auto) 12.8 % (22.0-35.0) L 02/23/17 01:40 Kim[place] % (Auto) 5.5 % (1.0-6.0) 02/23/17 01:40 Eos % (Auto) 1.4 % (1.5-5.0) L 02/23/17 01:40 Baso % (Auto) 0.2 % (0.0-3.0) 02/23/17 01:40 Gran # 11.61 (1.4-6.5) H 02/23/17 01:40 Lymph # 1.9 (1.2-3.4) 02/23/17 01:40 Kimble # 0.8 (0.1-0.6) H 02/23/17 01:40 Eos # 0.2 (0.0-0.7) 02/23/17 01:40 Baso # 0.03 K/mm3 (0.0-2.0) 02/23/17 01:40 PT 10.9 SECONDS (9.4-12.5) 02/23/17 01:40 INR 0.96 (0.93-1.08) 02/23/17 01:40 Sodium 143 mmol/L (132-148) 02/26/17 06:40 Potassium 3.6 mmol/L (3.6-5.0) 02/26/17 06:40 Chloride 105 mmol/L (98-107) 02/26/17 06:40 Carbon Dioxide 29 mmol/L (21-33) 02/26/17 06:40 Anion Gap 12 (10-20) 02/26/17 06:40 BUN 12 mg/dL (7-21) 02/26/17 06:40 Creatinine 0.6 mg/dl (0.7-1.2) L 02/26/17 06:40 Est GFR ( Amer) > 60 02/26/17 06:40 Est GFR (Non-Af Amer) > 60 02/26/17 06:40 Random Glucose 98 mg/dL (70-110) 02/26/17 06:40 Calcium 8.8 mg/dL (8.4-10.5) 02/26/17 06:40 Magnesium 2.0 mg/dL (1.7-2.2) 02/25/17 09:35 Total Bilirubin 0.4 mg/dL (0.2-1.3) 02/26/17 06:40 AST 35 U/L (14-36) 02/26/17 06:40 ALT 28 U/L (7-56) 02/26/17 06:40 Alkaline Phosphatase 64 U/L (38-126) 02/26/17 06:40 Total Protein 6.5 g/dL (5.8-8.3) 02/26/17 06:40 Albumin 3.6 g/dL (3.0-4.8) 02/26/17 06:40 Globulin 2.9 gm/dL 02/26/17 06:40 Albumin/Globulin Ratio 1.3 (1.1-1.8) 02/26/17 06:40 Lipase 27 U/L (23-300) 02/23/17 01:40 Urine Color Yellow (YELLOW) 02/24/17 04:50 Urine Appearance Sl cloudy (CLEAR) 02/24/17 04:50 Urine pH 6.0 (4.7-8.0) 02/24/17 04:50 Ur Specific [place] 1.015 (1.005-1.035) 02/24/17 04:50 Urine Protein Negative mg/dL (<30 mg/dL) 02/24/17 04:50 Urine Glucose (UA) Negative mg/dL (NEGATIVE) 02/24/17 04:50 Urine Ketones Negative mg/dL (NEGATIVE) 02/24/17 04:50 Urine Blood Negative (NEGATIVE) 02/24/17 04:50 Urine Nitrate Negative (NEGATIVE) 02/24/17 04:50 Urine Bilirubin Negative (NEGATIVE) 02/24/17 04:50 Urine Urobilinogen 0.2 E.U./dL (<1 E.U./dL) 02/24/17 04:50 Ur Leukocyte Esterase Moderate [place]/uL (NEGATIVE) H 02/24/17 04:50 Urine RBC Negative /hpf (0-2) 02/24/17 04:50 Urine WBC 2 - 5 /hpf (0-6) 02/24/17 04:50 Ur Epithelial Cells 10 - 12 /hpf (0-5) 02/24/17 04:50 Urine Bacteria Trace (NEG) 02/24/17 04:50 - Hospital Course Hospital Course: PGY-[address] Ramey Ms Rancho 81F, with PMHx of Asthma, COPD, emphysema, Hx severe pulm hypertension , Hx diverticulitis; Hx GERD, esophageal ulcer, gastritis, and duodenitis, presented with SOB and left and suprapubic abdominal pain with nausea and constipation without any urinary symptoms. CT scan suggestive of mild colitis, L colon and colonic diverticulosis without acute diverticulitis. She was admitted for sepsis due to L sided colitis, diverticulitis. Today is day 4 of IV Flagyl and rocephin. Blood culture negative. C. diff toxin negative. She also complained of constipation. She had bowel movement s/p miralax and started on daily colace. She had a small overflow liquid stool today and will have to continue on the GI regimen. Her abdominal pain is much improves, VSS, and pt will be discharged home with or without home services, pending physical therapy recommendation. Pt will be discharged home with antibiotics on written scripts, Augmentin and flagyl x 7d s/r/d/w Dr. Ramey Discharge Exam - Head Exam Head Exam: ATRAUMATIC, NORMAL INSPECTION, NORMOCEPHALIC - Eye Exam Eye Exam: EOMI, Normal appearance, PERRL. absent: Scleral icterus Pupil Exam: NORMAL ACCOMODATION - ENT Exam ENT Exam: Mucous Membranes Moist - Neck Exam Additional comments: supple - Respiratory Exam Respiratory Exam: NORMAL BREATHING PATTERN - Cardiovascular Exam Cardiovascular Exam: REGULAR RHYTHM, +S1, +S2 - GI/Abdominal Exam GI & Abdominal Exam: Normal Bowel Sounds, Soft, Tenderness. absent: Rigid Additional comments: LLQ and RLQ only upon deep palpation - Extremities Exam Extremities exam: pedal pulses present - Neurological Exam Neurological exam: Alert, Oriented x3 - Skin Skin Exam: Dry, Warm Discharge Plan - Discharge Medications Prescriptions: Amoxicillin/Potassium Clav [Amox-Clav 875-125 mg Tablet] 1 each PO BID #14 tablet metroNIDAZOLE [Flagyl] 500 mg PO Q8 #21 tab - Follow Up Plan Condition: GOOD Disposition: HOME/ ROUTINE Instructions: Constipation (DC), Pneumococcal Vaccine for Adults (DC), High Fiber Diet (DC), Influenza Vaccine (GEN), Using Oxygen at Home (DC), Fall Prevention (DC), Infectious Colitis (GEN) <Ministerio Ramey - Last Filed: 02/27/17 00:31> Provider - Provider Date of Admission: 02/23/17 05:52 Attending physician: Ministerio Ramey MD Hospital Course - Lab Results Lab Results: Micro Results 02/24/17 07:00 Blood-Venous Blood Culture - Preliminary NO GROWTH AFTER 48 HOURS 02/24/17 06:45 Blood-Venous Blood Culture - Preliminary NO GROWTH AFTER 48 HOURS 02/24/17 13:00 Stool C. difficile Antigen & Toxin A,B (M - Final Most Recent Lab Values WBC 5.9 10^3/ul (4.5-11.0) 02/26/17 06:40 RBC 4.56 10^6/uL (3.5-6.1) 02/26/17 06:40 Hgb 12.2 g/dL (12.0-16.0) 02/26/17 06:40 Hct 39.2 % (36.0-48.0) 02/26/17 06:40 MCV 86.0 fl (80.0-105.0) 02/26/17 06:40 MCH 26.8 pg (25.0-35.0) 02/26/17 06:40 MCHC 31.1 g/dl (31.0-37.0) 02/26/17 06:40 RDW 14.9 % (11.5-14.5) H 02/26/17 06:40 Plt Count 239 10^3/uL (120.0-450.0) 02/26/17 06:40 MPV 9.8 fl (7.0-11.0) 02/26/17 06:40 Gran % 80.1 % (50.0-68.0) H 02/23/17 01:40 Lymph % (Auto) 12.8 % (22.0-35.0) L 02/23/17 01:40 Kimble % (Auto) 5.5 % (1.0-6.0) 02/23/17 01:40 Eos % (Auto) 1.4 % (1.5-5.0) L 02/23/17 01:40 Baso % (Auto) 0.2 % (0.0-3.0) 02/23/17 01:40 Gran # 11.61 (1.4-6.5) H 02/23/17 01:40 Lymph # 1.9 (1.2-3.4) 02/23/17 01:40 Kimble # 0.8 (0.1-0.6) H 02/23/17 01:40 Eos # 0.2 (0.0-0.7) 02/23/17 01:40 Baso # 0.03 K/mm3 (0.0-2.0) 02/23/17 01:40 PT 10.9 SECONDS (9.4-12.5) 02/23/17 01:40 INR 0.96 (0.93-1.08) 02/23/17 01:40 Sodium 143 mmol/L (132-148) 02/26/17 06:40 Potassium 3.6 mmol/L (3.6-5.0) 02/26/17 06:40 Chloride 105 mmol/L (98-107) 02/26/17 06:40 Carbon Dioxide 29 mmol/L (21-33) 02/26/17 06:40 Anion Gap 12 (10-20) 02/26/17 06:40 BUN 12 mg/dL (7-21) 02/26/17 06:40 Creatinine 0.6 mg/dl (0.7-1.2) L 02/26/17 06:40 Est GFR ( Amer) > 60 02/26/17 06:40 Est GFR (Non-Af Amer) > 60 02/26/17 06:40 Random Glucose 98 mg/dL (70-110) 02/26/17 06:40 Calcium 8.8 mg/dL (8.4-10.5) 02/26/17 06:40 Magnesium 2.0 mg/dL (1.7-2.2) 02/25/17 09:35 Total Bilirubin 0.4 mg/dL (0.2-1.3) 02/26/17 06:40 AST 35 U/L (14-36) 02/26/17 06:40 ALT 28 U/L (7-56) 02/26/17 06:40 Alkaline Phosphatase 64 U/L (38-126) 02/26/17 06:40 Total Protein 6.5 g/dL (5.8-8.3) 02/26/17 06:40 Albumin 3.6 g/dL (3.0-4.8) 02/26/17 06:40 Globulin 2.9 gm/dL 02/26/17 06:40 Albumin/Globulin Ratio 1.3 (1.1-1.8) 02/26/17 06:40 Lipase 27 U/L (23-300) 02/23/17 01:40 Urine Color Yellow (YELLOW) 02/24/17 04:50 Urine Appearance Sl cloudy (CLEAR) 02/24/17 04:50 Urine pH 6.0 (4.7-8.0) 02/24/17 04:50 Ur Specific [place] 1.015 (1.005-1.035) 02/24/17 04:50 Urine Protein Negative mg/dL (<30 mg/dL) 02/24/17 04:50 Urine Glucose (UA) Negative mg/dL (NEGATIVE) 02/24/17 04:50 Urine Ketones Negative mg/dL (NEGATIVE) 02/24/17 04:50 Urine Blood Negative (NEGATIVE) 02/24/17 04:50 Urine Nitrate Negative (NEGATIVE) 02/24/17 04:50 Urine Bilirubin Negative (NEGATIVE) 02/24/17 04:50 Urine Urobilinogen 0.2 E.U./dL (<1 E.U./dL) 02/24/17 04:50 Ur Leukocyte Esterase Moderate Rozina/uL (NEGATIVE) H 02/24/17 04:50 Urine RBC Negative /hpf (0-2) 02/24/17 04:50 Urine WBC 2 - 5 /hpf (0-6) 02/24/17 04:50 Ur Epithelial Cells 10 - 12 /hpf (0-5) 02/24/17 04:50 Urine Bacteria Trace (NEG) 02/24/17 04:50 - Hospital Course Hospital Course: Pt not seen. Error by resident to see pt and write note.
--- NOTE | 2017-02-26 16:58 | CP.PCM.PN ---
Subjective - Date & Time of Evaluation Date of Evaluation: 02/26/17 Time of Evaluation: 12:50 - Subjective Subjective: Comfortable, improved abdominal pain, no fevers overnight, not in distress. Objective - Vital Signs/Intake and Output Vital Signs (last 24 hours): Temp Pulse Resp BP Pulse Ox 98.0 F 73 20 126/60 96 02/26/17 07:30 02/26/17 07:30 02/26/17 07:30 02/26/17 09:10 02/26/17 07:30 Intake and Output: 02/26/17 02/26/17 06:59 18:59 Intake Total 780 Balance 780 - Medications Medications: Current Medications Acetaminophen (Tylenol 325mg Tab) 650 mg PO Q4H PRN PRN Reason: Pain, moderate (4-7) Last Admin: 02/25/17 10:28 Dose: 650 mg Alprazolam (Xanax) 0.25 mg PO Q6 PRN; Protocol PRN Reason: Anxiety Stop: 03/02/17 12:01 Last Admin: 02/24/17 21:39 Dose: 0.25 mg Amlodipine Besylate (Norvasc) 10 mg PO DAILY [facility] Last Admin: 02/26/17 09:10 Dose: 10 mg Arformoterol Tartrate (Brovana) 15 mcg IH [id number] [facility] Last Admin: 02/26/17 07:29 Dose: 15 mcg Aspirin (Ecotrin) 81 mg PO DAILY [facility] Last Admin: 02/26/17 09:09 Dose: 81 mg Budesonide (Pulmicort Respules) 0.5 mg IH [id number] [facility] Last Admin: 02/26/17 07:30 Dose: 0.5 mg Docusate Sodium (Colace) 100 mg PO DAILY [facility] Last Admin: 02/26/17 09:09 Dose: 100 mg Metronidazole (Flagyl) 500 mg in 100 mls @ 100 mls/hr IVPB Q8 [facility] PRN Reason: Protocol Last Admin: 02/26/17 06:30 Dose: 100 mls/hr Ceftriaxone Sodium (Rocephin 1 Gram Ivpb) 1 gm in 100 mls @ 100 mls/hr IVPB DAILY [facility] PRN Reason: Protocol Last Admin: 02/25/17 10:27 Dose: 100 mls/hr Levothyroxine Sodium (Synthroid) 150 mcg PO DAILY [facility] Last Admin: 02/25/17 10:28 Dose: 150 mcg Montelukast Sodium (Singulair) 10 mg PO DAILY [facility] Last Admin: 02/26/17 09:09 Dose: 10 mg Morphine Sulfate (Morphine) 4 mg IVP Q4 PRN PRN Reason: Pain, moderate (4-7) Last Admin: 02/26/17 09:10 Dose: 4 mg Modafinil [Provigil] (200 Mg (Home Med)) 200 mg PO DAILY [facility] Last Admin: 02/25/17 10:00 Dose: Not Given Ondansetron HCl (Zofran Inj) 4 mg IVP Q6 PRN PRN Reason: Nausea/Vomiting Last Admin: 02/24/17 21:46 Dose: 4 mg Pantoprazole Sodium (Protonix Ec Tab) 40 mg PO ACB [facility] Last Admin: 02/26/17 09:09 Dose: 40 mg Tiotropium [place] (Spiriva) 18 mcg IH DAILY [facility] Last Admin: 02/26/17 09:09 Dose: 18 mcg - Labs Labs: 02/26/17 06:40 02/26/17 06:40 PT 10.9 SECONDS (9.4-12.5) 02/23/17 01:40 INR 0.96 (0.93-1.08) 02/23/17 01:40 - Constitutional Appears: Non-toxic - Head Exam Head Exam: NORMAL INSPECTION - ENT Exam ENT Exam: Mucous Membranes Moist - Neck Exam Neck Exam: absent: Meningismus - Respiratory Exam Respiratory Exam: Decreased Breath Sounds - Cardiovascular Exam Cardiovascular Exam: +S1, +S2 - GI/Abdominal Exam GI & Abdominal Exam: Soft. absent: Tenderness Assessment and Plan - Assessment and Plan (Free Text) Plan: Assessment Sepsis due to left sided colitis, clinically improving diverticulitis COPD spinal stenosis macular degeneration sleep apnea HTN obesity with BMI 34 Plan on Rocephin and Flagyl day 4;blood cx are negative; patient can be switched to PO Augmentin when ready for discharge
== END 2017-02-26 13:43 | disposition home health service (06) | DRG 872 ==
LOC: ED 23:18 → ERH 02-23 05:52 → 5RNO 02-23 18:13
PROVIDERS: ADMIT Internal Medicine Nephrology; ATTEND Internal Medicine Nephrology
DX: A41.9 Sepsis, unspecified organism (principal); I27.20 Pulmonary hypertension, unspecified; K51.50 Left sided colitis without complications; K57.32 Diverticulitis of large intestine without perforation or abscess without bleeding; J43.9 Emphysema, unspecified; R47.01 Aphasia; E03.9 Hypothyroidism, unspecified; E66.9 Obesity, unspecified; Z68.34 Body mass index [BMI] 34.0-34.9, adult; E87.6 Hypokalemia; F17.210 Nicotine dependence, cigarettes, uncomplicated; G47.33 Obstructive sleep apnea (adult) (pediatric); G89.29 Other chronic pain; H35.30 Unspecified macular degeneration; I10 Essential (primary) hypertension; K21.9 Gastro-esophageal reflux disease without esophagitis; K59.09 Other constipation; M48.00 Spinal stenosis, site unspecified; Z79.82 Long term (current) use of aspirin; Z79.899 Other long term (current) drug therapy; Z87.01 Personal history of pneumonia (recurrent); Z87.19 Personal history of other diseases of the digestive system; Z91.040 Latex allergy status; Z88.5 Allergy status to narcotic agent; Z88.1 Allergy status to other antibiotic agents; R40.2412 Glasgow coma scale score 13-15, at arrival to emergency department

== ENCOUNTER 2017-05-04 12:09 | Emergency (ER) | payer MEDICARE, BC ==
[2017-05-04 12:17] VITALS: BMI 39.0
[2017-05-04] MEDS ORDERED: Albuterol-Ipratrop 3 mg / 0.5 (3 ml) UD IH STA (12:20)
--- NOTE | 2017-05-04 12:25 | ED PDOC ---
Arrival/HPI - General Chief Complaint: Shortness Of Breath Time Seen by Provider: 05/04/17 12:12 Historian: Patient, Family (Brother) - History of Present Illness Time/Duration: Other (Several days) Symptom Onset: Gradual Symptom Course: Worsening Severity Level: Moderate Activities at Onset: Rest Associated Symptoms (Text): 05/04/17 12:23 Patient complains of a several day history of worsening shortness of breath. She has dyspnea on exertion and dyspnea at rest. Mild cough. No chest pain or palpitations. No fever or chills. No abdominal pain or vomiting, but some nausea. She is on oxygen 2 L at home. She has a home nebulizer. She's been taking an unknown dose of prednisone for the last 3 days with no improvement. 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 Past Medical History - Infectious Disease Hx of Infectious Diseases: None - Tetanus Immunization Tetanus Immunization: Unknown - Cardiac Hx Cardiac Disorders: Yes Hx Hypertension: Yes - Pulmonary Hx Respiratory Disorders: Yes Hx Asthma: Yes Hx Chronic Obstructive Pulmonary Disease (COPD): Yes Hx Pneumonia: Yes - Neurological Hx Neurological Disorder: No - HEENT Hx HEENT Disorder: No - Renal Hx Renal Disorder: No - Endocrine/Metabolic Hx Endocrine Disorders: Yes Hx Hypothyroidism: Yes - Hematological/Oncological Hx Blood Disorders: No - Integumentary Hx Dermatological Disorder: No - Musculoskeletal/Rheumatological Hx Musculoskeletal Disorders: Yes Hx Falls: Yes - Gastrointestinal Hx Gastrointestinal Disorders: Yes Hx Gastroesophageal Reflux: Yes Other/Comment: constipation - Genitourinary/Gynecological Hx Genitourinary Disorders: No - Psychiatric Hx Emotional Abuse: No Hx Physical Abuse: No Hx Substance Use: No - Surgical History Hx Orthopedic Surgery: Yes (bilateral knee) - Anesthesia Hx Anesthesia Reactions: No (DIFFICULTY AFTER ANESTHEISA) Hx Malignant Hyperthermia: No - Suicidal Assessment Feels Threatened In Home Enviroment: No Family/Social History - Physician Review Nursing Documentation Reviewed: Yes Family/Social History: Unknown Family HX Smoking Status: Former Smoker Hx Alcohol Use: No Hx Substance Use: No Allergies/Home Meds Allergies/Adverse Reactions: Allergies latex Allergy (Verified 05/04/17 12:55) ANAPHYLAXIS moxifloxacin HCl [From Avelox] Allergy (Verified 05/04/17 12:55) RASH oxycodone HCl [From Percocet] Allergy (Verified 05/04/17 12:55) RASH Home Medications: Home Meds Medication Instructions Recorded Confirmed ALPRAZolam [Xanax] 0.25 mg PO DAILY 02/24/16 05/04/17 Aspirin [Ecotrin] 81 mg PO DAILY 02/24/16 05/04/17 Fluticasone/Salmeterol 250/50 250 mg IH DAILY 02/24/16 05/04/17 [Advair Diskus 250/50] Levothyroxine [Synthroid] 150 mcg PO DAILY 02/24/16 05/04/17 Montelukast [Singulair] 10 mg PO DAILY 02/24/16 05/04/17 Tiotropium [Spiriva] 18 mcg IH DAILY 02/24/16 05/04/17 amLODIPine [Norvasc] 10 mg PO DAILY 02/24/16 05/04/17 Modafinil [Provigil] 200 mg PO DAILY 11/13/16 05/04/17 Triamterene [Dyrenium] 37.5 mg PO DAILY 11/13/16 05/04/17 Acetaminophen [Tylenol 325mg tab] 325 mg PO BID 11/16/16 05/04/17 Fluticasone/Salmeterol 250/50 1 dsk IH DAILY 11/16/16 05/04/17 [Advair Diskus] Omeprazole 40 mg PO DAILY 11/16/16 05/04/17 Review of Systems - Physician Review All systems were reviewed & negative as marked: Yes - Review of Systems Constitutional: Fatigue. absent: Fevers Respiratory: SOB, Cough, Wheezing Cardiovascular: absent: Chest Pain, Palpitations, Syncope Gastrointestinal: absent: Abdominal Pain, Diarrhea, Vomiting Neurological: absent: Headache, Dizziness, Focal Weakness Physical Exam Vital Signs Temp Pulse Resp BP Pulse Ox 05/04/17 12:34 97.8 F 72 20 157/83 H 95 05/04/17 12:21 18 92 L 05/04/17 12:17 74 18 157/83 H 92 L Temperature: Afebrile Blood Pressure: Normal Pulse: Regular Respiratory Rate: Normal Appearance: Positive for: Well-Appearing, Non-Toxic, Uncomfortable Pain Distress: Mild Mental Status: Positive for: Alert and Oriented X 3 - Systems Exam Head: Present: Atraumatic, Normocephalic Pupils: Present: PERRL Extroacular Muscles: Present: EOMI Conjunctiva: Present: Normal Ears: Present: NORMAL TM, Normal Canal. No: Erythema, TM Bulging Mouth: Present: Moist Mucous Membranes Pharnyx: No: ERYTHEMA, EXUDATE, TONSILS ENLARGED Neck: Present: Normal Range of Motion Respiratory/Chest: Present: Accessory Muscle Use, Wheezes, Decreased Breath Sounds, Rhonchi, Tachypneic. No: Rales, Retracting, Tender to Palpation Cardiovascular: Present: Regular Rate and Rhythm, Normal S1, S2. No: Murmurs Abdomen: Present: Normal Bowel Sounds. No: Tenderness, Distention, Peritoneal Signs, Rebound, Guarding Back: Present: Normal Inspection Upper Extremity: Present: Normal Inspection. No: Cyanosis, Edema Lower Extremity: Present: Normal Inspection, Other (Chronic left knee pain following a total knee replacement). No: Edema Neurological: Present: GCS=15, CN II-XII Intact, Speech Normal, Motor Func Grossly Intact Skin: Present: Warm, Dry, Normal Color. No: Rashes Psychiatric: Present: Alert, Oriented x 3, Normal Insight, Normal Concentration Medical Decision Making ED Course and Treatment: 05/04/17 12:31 EKG shows normal sinus rhythm rate approximately [address] or T-wave changes 05/04/2017 12:44 Chest X-ray IMPRESSION: No active disease. Dictator: Jared Elizabeth MD 05/04/17 13:19 Patient states that she feels better, though there is still mild wheezing. Additional albuterol has been ordered. 05/04/17 13:43 Patient is feeling better and wants to go home. She has home oxygen and a home nebulizer. No indication for antibiotics at this time. She will given a prescription for prednisone and follow-up with her PMD . Follow up in ER as needed. She is in no respiratory distress with no accessory muscle use or retractions. - Lab Interpretations Lab Results: 05/04/17 12:55 05/04/17 12:55 Lab Results 05/04/17 12:55: Sodium 141, Potassium 3.6, Chloride 97 L, Carbon Dioxide 32, Anion Gap 15, BUN 29 H, Creatinine 0.7, Est GFR ( Amer) > 60, Est GFR ( Non-Af Amer) > 60, Random Glucose 100, Calcium 10.4, Total Bilirubin 0.4, AST 20 , ALT 37, Alkaline Phosphatase 78, Lactate Dehydrogenase 397, Total Creatine Kinase 22 L, Troponin I < 0.01, NT-Pro-B Natriuret Pep 200, Total Protein 7.2, Albumin 4.1, Globulin 3.1, Albumin/Globulin Ratio 1.3 05/04/17 12:55: PT 10.4, INR 0.91 L, APTT 30.2 05/04/17 12:55: WBC 8.9 D, RBC 4.89, Hgb 13.4, Hct 41.1, MCV 84.0, MCH 27.4, MCHC 32.6, RDW 15.7 H, Plt Count 245, MPV 9.2, Gran % 77.8 H, Lymph % (Auto) 15.2 L, [place] % (Auto) 5.0, Eos % (Auto) 1.8, Baso % (Auto) 0.2, Gran # 6.91 H, Lymph # (Auto) 1.4, [place] # (Auto) 0.4, Eos # (Auto) 0.2, Baso # (Auto) 0.02 - RAD Interpretation Radiology Orders: 05/04/17 12:21 CHEST PORTABLE [RAD] Stat Chest 1 view shows no infiltrate or effusion or cardiomegaly. Non Destructive Testing Specialist: Radiologist - Medication Orders Current Medication Orders: Discontinued Medications Albuterol Sulfate (Albuterol 0.083% Inhal Ana (2.5 Mg/3 Ml) Ud) 2.5 mg INH STAT STA Stop: 05/04/17 13:19 Albuterol/Ipratropium (Duoneb 3 Mg/0.5 Mg (3 Ml) Ud) 3 ml IH ONCE STA Stop: 05/04/17 12:21 Last Admin: 05/04/17 13:03 Dose: 3 ml Ketorolac Tromethamine (Toradol) 15 mg IVP ONCE ONE Stop: 05/04/17 12:21 Last Admin: 05/04/17 13:03 Dose: 15 mg MAR Pain Assessment Document 05/04/17 13:03 [facility] (Rec: 05/04/17 13:03 [id number] Pain Reassessment Is this a pain reassessment? Yes IVP Administration Document 05/04/17 13:03 [facility] (Rec: 05/04/17 13:03 [id number]) Charges for Administration # of IVP Administrations 1 Methylprednisolone (Solu-Medrol) 125 mg IVP ONCE ONE Stop: 05/04/17 12:21 Last Admin: 05/04/17 13:03 Dose: 125 mg IVP Administration Document 05/04/17 13:03 [facility] (Rec: 05/04/17 13:03 [id number]) Charges for Administration # of IVP Administrations 1 Ondansetron HCl (Zofran Inj) 4 mg IVP ONCE ONE Stop: 05/04/17 12:21 Last Admin: 05/04/17 13:03 Dose: 4 mg IVP Administration Document 05/04/17 13:03 [facility] (Rec: 05/04/17 13:03 [id number]) Charges for Administration # of IVP Administrations 1 Disposition/Present on Arrival - Present on Arrival Any Indicators Present on Arrival: No History of DVT/PE: No History of Uncontrolled Diabetes: No Urinary Catheter: No History of Decub. Ulcer: No History Surgical Site Infection Following: None - Disposition Have Diagnosis and Disposition been Completed?: Yes Diagnosis: Asthma exacerbation Disposition: HOME/ ROUTINE Disposition Time: 13:44 Patient Plan: Discharge Condition: IMPROVED Discharge Instructions (ExitCare): Asthma, Adult (DC) Additional Instructions: Symptomatic treatment. Follow-up with PMD. Follow up in ER as needed. Prescriptions: Prednisone [Deltasone] 40 mg PO DAILY #10 tablet Forms: Cobra Stylet ([place])
[2017-05-04 12:37] VITALS: BP 157/83; PULSE 72; RESP 20; TEMP 97.8; O2SAT 95
--- NOTE | 2017-05-04 12:45 | RAD ---
HISTORY: sob COMPARISON: 11/16/2016 FINDINGS: LUNGS: No active pulmonary disease. PLEURA: No significant pleural effusion identified, no pneumothorax apparent. CARDIOVASCULAR: Normal. OSSEOUS STRUCTURES: No significant abnormalities. VISUALIZED UPPER ABDOMEN: Normal. OTHER FINDINGS: None. IMPRESSION: No active disease.
[2017-05-04 13:11] LABS: BASO # 0.02 K/mm3 (0.0-2.0); BASO % 0.2 % (0.0-3.0); EOS # 0.2 (0.0-0.7); EOS % 1.8 % (1.5-5.0); GRAN # 6.91 (1.4-6.5); GRAN % 77.8 % (50.0-68.0); HEMOGLOBIN 13.4 g/dL (12.0-16.0); LYMPH # 1.4 (1.2-3.4); LYMPH % 15.2 % (22.0-35.0); MEAN CORPUSCULAR HEMOGLOBIN 27.4 pg (25.0-35.0); MEAN CORPUSCULAR HGB CONC 32.6 g/dl (31.0-37.0); MEAN PLATELET VOLUME 9.2 fl (7.0-11.0); MONO # 0.4 (0.1-0.6); RBC 4.89 10^6/uL (3.5-6.1); RED CELL DISTRIBUTION WIDTH 15.7 % (11.5-14.5); WHITE BLOOD COUNT 8.9 10^3/ul (4.5-11.0)
[2017-05-04 13:18] LABS: INR 0.91 (0.93-1.08); PARTIAL THROMBOPLASTIN TIME 30.2 Seconds (25.1-36.5); PROTHROMBIN TIME 10.4 SECONDS (9.4-12.5)
[2017-05-04] MEDS ORDERED: Albuterol 0.083% Inhal Sol (2.5 mg/3 mL) UD INH STA (13:18)
[2017-05-04 13:23] LABS: ALB/GLOB RATIO 1.3 (1.1-1.8); ALBUMIN 4.1 g/dL (3.0-4.8); ALT/SGPT 37 U/L (7-56); AST/SGOT 20 U/L (14-36); BLOOD UREA NITROGEN 29 mg/dL (7-21); CALCIUM 10.4 mg/dL (8.4-10.5); GFR AFRICAN-AMERICAN > 60; GFR NON-AFRICAN AMERICAN > 60
[2017-05-04 13:35] LABS: B-TYPE NATRIURETIC PEPTIDE 200 pg/mL (0-450); TROPONIN I < 0.01 ng/mL
--- NOTE | 2017-05-04 15:28 | CARD ---
APPROVED REPORT EKG Measurement Heart [id number] <Conclusion> Normal sinus rhythm Normal ECG
== END 2017-05-04 14:07 | disposition home or self-care (01) ==
LOC: ED 12:09
DX: J45.901 Unspecified asthma with (acute) exacerbation (principal); I10 Essential (primary) hypertension; Z87.891 Personal history of nicotine dependence
CPT/HCPCS: 71045; 80053; 82550; 83615; 83880; 84484; 85025; 85610; 85730; 93005; 96374; 96375; 99283; J1885; J2405; J2930

== ENCOUNTER 2018-04-28 19:01 | Emergency (ER) | payer MEDICARE, BC | END 2018-04-28 19:40 | disposition left against medical advice (07) | LOC: ED 19:01 ==